=== PATIENT | female | born 1980 | race Caucasian/White ===

== ENCOUNTER → 2017-02-18 | Outpatient (CLI) | payer MEDICARE, OTHER ==
[2017-02-18 11:23] LABS: Basophils % (A) 1 %; CHCM 34.9; Eosinophils # (A) 0.2 k/uL (0-0.7); Eosinophils % (A) 3 %; HCT 43.2 % (34.0-46.0); HDW 3.04; HGB 14.7 gm/dL (11.4-16.0); Luc # (Auto) 0.12; Luc % (Auto) 2; Lymphocytes # (A) 2.1 k/uL (1.0-4.8); Lymphocytes % (A) 34 %; MCH 33.3 pg (25.0-35.0); Mean Platelet Volume 7.7; Monocytes # (A) 0.3 k/uL (0-1.0); Monocytes % (A) 4 %; Neutrophils # (A) 3.5 k/uL (1.3-7.7); Neutrophils % (A) 56 %; RBC 4.41 m/uL (3.80-5.40); RDW 14.4 % (11.5-15.5); WBC 6.2 k/uL (3.8-10.6)
[2017-02-18 11:28] LABS: ALT 87 U/L (9-52); AST 138 U/L (14-36); Alkaline Phosphatase 130 U/L (38-126); Anion Gap 9 mmol/L; Blood Urea Nitrogen 7 mg/dL (7-17); Calcium 9.5 mg/dL (8.4-10.2); Carbon Dioxide 29 mmol/L (22-30); Chloride 104 mmol/L (98-107); Glucose 90 mg/dL (74-99); Non-African American GFR(MDRD) >60 (>60 ml/min/1.73 sqM); Potassium 3.2 mmol/L (3.5-5.1); Sodium 142 mmol/L (137-145); Total Protein 6.9 g/dL (6.3-8.2)
[2017-02-18 12:16] LABS: Vitamin B12 813 pg/mL (239-931)
[2017-02-18 13:16] LABS: Erythrocyte Sedimentation Rate 5 mm/hr (0-20)
[2017-02-18 15:47] LABS: Treponemal Ab Non-Reactive (Non-Reactive)
[2017-02-19 20:17] LABS: ANA w/Reflex to Titer NEGATIVE (NEGATIVE)
== END | disposition home or self-care (01) ==
LOC: LABWHC1 10:59
PROVIDERS: ATTEND Otolaryngology
DX: K14.0 Glossitis (principal)
CPT/HCPCS: 36415; 80053; 82607; 84443; 85025; 85652; 86038; 86780

== ENCOUNTER 2017-05-05 13:46 | Emergency (ER) | payer MEDICARE, OTHER ==
[2017-05-05 14:25] VITALS: TEMP 97.8
--- NOTE | 2017-05-05 15:16 | ED ---
Extremity Problem HPI - General Chief complaint: Extremity Problem,Nontraumatic Stated complaint: left leg swelling/numbness-sent by Time Seen by Provider: 05/05/17 14:57 Source: patient, RN notes reviewed Mode of arrival: wheelchair Limitations: no limitations - History of Present Illness Initial comments: 37 yo female presents to the ER with cc of left lower extremity numbness and tingling. Patient states this is been to the anterior left leg. Patient states that she's noticed swelling over the last few weeks and she started to notice numbness and tingling started around the ankle and has seemed to spread out throughout the left leg. Patient denies any falls traumas or injuries. Patient denies any low back pain or weakness with this. Patient states she was concerned due to her symptoms so she thought that she should be evaluated. Patient denies any history of anything like this in the past. Patient states she is not currently having any other symptoms. Patient denies any recent fever , chills, shortness of breath, chest pain, back pain, abdominal pain, nausea vomiting, numbness or tingling, dysuria or hematuria, constipation or diarrhea, headaches or visual changes, or any other current symptoms. - Related Data Home Medications Medication Instructions Recorded Confirmed Aspirin 81 mg PO DAILY 06/11/15 06/11/15 Ascorbic Acid [Vitamin C] 500 mg PO DAILY 05/05/17 05/05/17 Bethanechol Chloride 5 mg PO DAILY PRN 05/05/17 05/05/17 Eszopiclone [Lunesta] 3 mg PO HS 05/05/17 05/05/17 Fludrocortisone [Florinef] 0.1 mg PO BID@0800,1400 05/05/17 05/05/17 Levothyroxine Sodium [Synthroid] 50 mcg PO DAILY 05/05/17 05/05/17 Multivitamins, Thera [Multivitamin 1 tab PO DAILY 05/05/17 05/05/17 (formulary)] Pregabalin [Lyrica] 25 mg PO BID@0800,1400 05/05/17 05/05/17 Propranolol HCl 80 mg PO BID 05/05/17 05/05/17 Topiramate [Topamax] 50 mg PO HS 05/05/17 05/05/17 buPROPion [Wellbutrin] 75 mg PO BID@0800,1400 05/05/17 05/05/17 Allergies Allergy/AdvReac Type Severity Reaction Status Date / Time adhesive tape Allergy Unknown Verified 05/05/17 15:20 metoclopramide HCl Allergy Unknown Verified 05/05/17 15:20 [From Reglan] prochlorperazine edisylate Allergy Unknown Verified 05/05/17 15:20 [From Compazine] prochlorperazine maleate Allergy Unknown Verified 05/05/17 15:20 [From Compazine] promethazine HCl Allergy Unknown Verified 05/05/17 15:20 [From Phenergan] sulfamethoxazole Allergy Unknown Verified 05/05/17 15:20 [From Bactrim] trimethoprim [From Bactrim] Allergy Unknown Verified 05/05/17 15:20 sumatriptan [From Imitrex] AdvReac Unknown Verified 05/05/17 15:20 sumatriptan succinate AdvReac Unknown Verified 05/05/17 15:20 [From Imitrex] Review of Systems ROS Statement: Those systems with pertinent positive or pertinent negative responses have been documented in the HPI. ROS Other: All systems not noted in ROS Statement are negative. Past Medical History Past Medical History: CVA/TIA, Thyroid Disorder Additional Past Medical History / Comment(s): migraines, pots, endometriosis, interstitial cystitis History of Any Multi-Drug Resistant Organisms: None Reported Past Surgical History: Appendectomy, Back Surgery, Bariatric Surgery, Cholecystectomy, Hysterectomy, Tonsillectomy Additional Past Surgical History / Comment(s): right oopherectomy Past Psychological History: Anxiety Smoking Status: Never smoker Past Alcohol Use History: None Reported Past Drug Use History: None Reported General Exam - General Exam Comments Initial Comments: General: The patient is awake and alert, in no distress, and does not appear acutely ill. Neck: The neck is supple, there is no tenderness. Cardiovascular: There is a regular rate and rhythm. No murmur, rub or gallop is appreciated. Respiratory: Lungs are clear to auscultation, respirations are non-labored, breath sounds are equal. No wheezes, stridor, rales, or rhonchi. Musculoskeletal: Patient does have a slight sensation she states it is different Zihlman compared to the left side being more slowly spreading up to about the top of the knee. Patient does appear to have some swelling to left lower extremity compared to the right with 2+ pulses throughout. There is no redness or erythema noted. 5/5 muscle strength testing. Neurological: CN II-XII intact, There are no obvious motor or sensory deficits. Coordination appears grossly intact. Speech is normal. Skin: Skin is warm and dry and no rashes or lesions are noted. Psychiatric: Normal mood and affect. Limitations: no limitations Course Vital Signs 05/05/17 14:21 Temperature 97.8 F Pulse Rate 70 Respiratory 20 Rate Blood Pressure 114/72 O2 Sat by Pulse 96 Oximetry Medical Decision Making - Medical Decision Making 37-year-old female presents emergency Department chief complaint of left lower extremity swelling with some numbness. At this time patient's ultrasound x- rays reviewed and negative. This discussed close follow up neurology as well as SHE IS GIVEN THEIR INFORMATION. WE DID DISCUSS RETURN PARAMETERS ALL HER QUESTIONS. SHE STATED THAT SHE UNDERSTOOD AND SHE WAS GIVEN PLAN. SHE WILL BE DISCHARGED HOME. - Radiology Data Radiology results: report reviewed, image reviewed Disposition Clinical Impression: Paresthesia and pain of left extremity Disposition: HOME SELF-CARE Condition: Stable Instructions: Paresthesia (ED) Additional Instructions: Please use medication as discussed. Please follow up with family doctor if symptoms have not improved over the next two days. Please return to the emergency room if your symptoms increase or worsen or for any other concerns. Referrals: Gema Rondon MD [Primary Care Provider] - 1-2 days Dori Dennis MD [STAFF PHYSICIAN] - 1-2 days Ranjan Sanderson MD [STAFF PHYSICIAN] - 1-2 days Time of Disposition: 16:26
--- NOTE | 2017-05-05 16:01 | XR ---
EXAMINATION TYPE: XR tibia fibula LT DATE OF EXAM: 05/05/2017 CLINICAL HISTORY: pain TECHNIQUE: AP and lateral images of the left tibia and fibula are obtained. COMPARISON: None. FINDINGS: There is no acute fracture/dislocation evident. The joint spaces appear within normal sinha its. The overlying soft tissue appears unremarkable. Distal femoral bone island. IMPRESSION: There is no acute fracture or dislocation seen. ICD 10 NO FRACTURE, INITIAL EVALUATION
--- NOTE | 2017-05-05 16:12 | US ---
EXAMINATION TYPE: US venous doppler duplex LE LT DATE OF EXAM: 05/05/2017 4:06 PM COMPARISON: NONE CLINICAL HISTORY: Pain. Numbness SIDE PERFORMED: Left TECHNIQUE: The lower extremity deep venous system is examined utilizing real time linear array sonog puneet with graded compression, doppler sonography and color-flow sonography. VESSELS IMAGED: External Iliac Vein (EIV) Common Femoral Vein Deep Femoral Vein Greater Saphenous Vein * Femoral Vein Popliteal Vein Small Saphenous Vein * Proximal Calf Veins (* superficial vessels) Grayscale, color doppler, spectral doppler imaging performed of the deep veins of the lower extremiti es. There is normal flow, compressibility, vascular waveforms Left Leg. Left Leg: Negative for DVT IMPRESSION: No evidence for DVT left lower extremity.
[2017-05-05 16:45] VITALS: BP 129/82; PULSE 56; RESP 16
== END 2017-05-05 16:53 | disposition home or self-care (01) ==
LOC: EC 13:46
DX: R20.2 Paresthesia of skin (principal); M79.662 Pain in left lower leg; E07.9 Disorder of thyroid, unspecified; F41.9 Anxiety disorder, unspecified; Z86.73 Personal history of transient ischemic attack (TIA), and cerebral infarction without residual deficits; Z87.42 Personal history of other diseases of the female genital tract; Z88.2 Allergy status to sulfonamides; Z88.8 Allergy status to other drugs, medicaments and biological substances; Z91.048 Other nonmedicinal substance allergy status; Z79.82 Long term (current) use of aspirin; Z79.899 Other long term (current) drug therapy
CPT/HCPCS: 99284

== ENCOUNTER 2017-08-25 08:17 | Emergency (ER) | payer MEDICARE ==
--- NOTE | 2017-08-25 08:59 | ED ---
General Adult HPI - General Chief complaint: Extremity Injury, Upper Stated complaint: hand and knee injury Time Seen by Provider: 08/25/17 08:26 Source: patient, RN notes reviewed, old records reviewed Mode of arrival: ambulatory Limitations: no limitations - History of Present Illness Initial comments: 37-year-old female presents emergency Department chief complaint of left hand pain after she fell while playing volleyball yesterday. Patient reports that she has pain whenever she has range of motion of her hand. She does have some swelling over the fourth and fifth metacarpals. Patient states that she is prominently [id number]. She is ambidextrous. Chest reports that one week ago she had some right knee pain after playing basketball. She reports that she twisted her leg. Patient reports she has not able to take NSAIDs due to poor stomach. She states that she went to see her primary care provider started her on Medrol Dosepak. She reports that she has no improvement after the Medrol Dosepak. Patient states that she has been able to bear weight over her leg. Denies any numbness or tingling down her legs. Denies any other peripheral paresthesias.Patient denies any recent fever, chills, shortness of breath, chest pain, back pain, abdominal pain, nausea vomiting, numbness or tingling, dysuria or hematuria, constipation or diarrhea, headaches or visual changes, or any other current symptoms - Related Data Home Medications Medication Instructions Recorded Confirmed Aspirin 81 mg PO HS 06/11/15 08/25/17 Bethanechol Chloride 5 mg PO DAILY PRN 05/05/17 08/25/17 Eszopiclone [Lunesta] 3 mg PO HS 05/05/17 08/25/17 Fludrocortisone [Florinef] 0.1 mg PO BID@0800,1400 05/05/17 08/25/17 Levothyroxine Sodium [Synthroid] 50 mcg PO DAILY 05/05/17 08/25/17 Pregabalin [Lyrica] 25 mg PO HS 05/05/17 08/25/17 Propranolol HCl 80 mg PO QID 05/05/17 08/25/17 buPROPion [Wellbutrin] 75 mg PO BID@0800,1400 05/05/17 08/25/17 Topiramate [Topamax] 100 mg PO HS 08/25/17 08/25/17 Previous Rx's Medication Instructions Recorded traMADol HCl [Ultram] 50 mg PO Q6H PRN #15 tab 08/25/17 Allergies Allergy/AdvReac Type Severity Reaction Status Date / Time adhesive tape Allergy Unknown Verified 08/25/17 08:35 metoclopramide HCl Allergy Unknown Verified 08/25/17 08:35 [From Reglan] prochlorperazine edisylate Allergy Unknown Verified 08/25/17 08:35 [From Compazine] prochlorperazine maleate Allergy Unknown Verified 08/25/17 08:35 [From Compazine] promethazine HCl Allergy Unknown Verified 08/25/17 08:35 [From Phenergan] sulfamethoxazole Allergy Unknown Verified 08/25/17 08:35 [From Bactrim] trimethoprim [From Bactrim] Allergy Unknown Verified 08/25/17 08:35 NSAIDS (Non-Steroidal AdvReac PAIN Verified 08/25/17 08:35 Anti-Inflamma sumatriptan [From Imitrex] AdvReac Unknown Verified 08/25/17 08:35 sumatriptan succinate AdvReac Unknown Verified 08/25/17 08:35 [From Imitrex] Review of Systems ROS Statement: Those systems with pertinent positive or pertinent negative responses have been documented in the HPI. ROS Other: All systems not noted in ROS Statement are negative. Past Medical History Past Medical History: CVA/TIA, Thyroid Disorder Additional Past Medical History / Comment(s): migraines, pots, endometriosis, interstitial cystitis History of Any Multi-Drug Resistant Organisms: None Reported Past Surgical History: Appendectomy, Back Surgery, Bariatric Surgery, Cholecystectomy, Hysterectomy, Tonsillectomy Additional Past Surgical History / Comment(s): right oopherectomy Past Psychological History: Anxiety Smoking Status: Never smoker Past Alcohol Use History: None Reported Past Drug Use History: None Reported General Exam - General Exam Comments Initial Comments: 37-year-old female. No acute distress. Limitations: no limitations General appearance: alert, in no apparent distress Head exam: Present: atraumatic, normocephalic, normal inspection Eye exam: Present: normal appearance, PERRL, EOMI. Absent: scleral icterus, conjunctival injection, periorbital swelling ENT exam: Present: normal exam, mucous membranes moist Neck exam: Present: normal inspection. Absent: tenderness, meningismus, lymphadenopathy Respiratory exam: Present: normal lung sounds bilaterally. Absent: respiratory distress, wheezes, rales, rhonchi, stridor Cardiovascular Exam: Present: regular rate, normal rhythm, normal heart sounds. Absent: systolic murmur, diastolic murmur, rubs, gallop, clicks Left Elbow exam: Present: normal inspection, full ROM Forearm Wrist exam: Present: normal inspection, full ROM Hand Wrist exam: Present: tenderness, swelling. Absent: normal inspection ( Patient has ecchymosis, tenderness and swelling over the fourth and fifth metacarpals.), full ROM Neuro motor exam: Present: wrist extension intact, thumb opposition intact, thumb IP flexion intact, thumb adduction intact, fingers 2-5 abduction intact Vascular: Present: normal capillary refill Right Upper Leg exam: Present: normal inspection, full ROM Knee exam: Present: normal inspection, full ROM (Patient has full range of motion of the knee. She reports some tenderness over the lateral meniscus area. ), tenderness (Her meniscus area), swelling (Minor swelling noted over the lateral aspect of the knee.), pain/laxity with valgus. Absent: abrasion, laceration, ecchymosis, deformity, crepitus, dislocation, erythema, effusion, pain w/ pronation/supination, posterior draw sign, pain/laxity with varus, full knee extension Back exam: Present: normal inspection Neurological exam: Present: alert, oriented X3, CN II-XII intact Psychiatric exam: Present: normal affect, normal mood Skin exam: Present: warm, dry, intact, normal color. Absent: rash Course Vital Signs 08/25/17 08:20 Temperature 98.0 F Pulse Rate 70 Respiratory 20 Rate Blood Pressure 134/89 O2 Sat by Pulse 100 Oximetry Procedures - Orthopedic Splinting/Casting Injury #1 Side: left Upper Extremity Injury Location: hand Upper Extremity Immobilizer: Shay wrap Injury #2 Side: right Lower Extremity Injury Location: knee Lower Extremity Immobilizer: Shay wrap Medical Decision Making - Medical Decision Making 37-year-old female since emergency room chief complaint of right knee and left hand pain. Patient reports that yesterday she fell while playing volleyball and injured left hand. Approximately one week ago she injured her right knee. At this time patient's x-ray showed no acute abnormality's. Patient was given an Shay wrap over her hand and knee. Instructed take anti-inflammatory medications. Discussed following up with primary care provider. Patient agrees to treatment plan will comply. Return parameters were discussed. - Radiology Data Radiology results: report reviewed Normal 3 view of the left hand. Knee x-ray shows no acute abnormalities. Disposition Clinical Impression: Right knee pain, Contusion of left hand Disposition: HOME SELF-CARE Condition: Good Instructions: Knee Sprain (ED), Hand Sprain (ED), Meniscus Tear (ED) Additional Instructions: Rest, ice, elevate extremities. Follow-up with orthopedic physician. Return to the emergency department if any alarming signs or symptoms occur. Prescriptions: traMADol HCl [Ultram] 50 mg PO Q6H PRN #15 tab PRN Reason: Pain Referrals: Gema Rondon MD [Primary Care Provider] - 1-2 days Christos Goodson MD [STAFF PHYSICIAN] - 1-2 days Time of Disposition: 10:05
--- NOTE | 2017-08-25 09:16 | XR ---
EXAMINATION TYPE: XR knee complete RT DATE OF EXAM: 08/25/2017 COMPARISON: NONE HISTORY: Pain x1 week TECHNIQUE: Three-view right knee FINDINGS: No joint effusion is evident. Joint spaces are preserved. No acute fractures are identified . IMPRESSION: 1. No acute osseous abnormality right knee.
--- NOTE | 2017-08-25 09:17 | XR ---
EXAMINATION TYPE: XR hand complete LT DATE OF EXAM: 08/25/2017 COMPARISON: NONE HISTORY: Pain TECHNIQUE: Three-view left hand FINDINGS: Left hand is examined in 3 projections No acute fractures are evident. Soft tissues appear normal. Joint spaces are preserved. Follow-up study can be performed 7-10 days from acute trauma for continued pain. IMPRESSION: 1. Normal three-view left hand.
[2017-08-25 10:31] VITALS: BP 109/75; PULSE 79; RESP 19; TEMP 98.6
== END 2017-08-25 10:32 | disposition home or self-care (01) ==
LOC: EC 08:17
DX: S60.222A Contusion of left hand, initial encounter (principal); M25.561 Pain in right knee; E07.9 Disorder of thyroid, unspecified; Z91.048 Other nonmedicinal substance allergy status; Z88.6 Allergy status to analgesic agent; Z88.8 Allergy status to other drugs, medicaments and biological substances; Z88.2 Allergy status to sulfonamides; Z79.82 Long term (current) use of aspirin; Z79.899 Other long term (current) drug therapy; W19.XXXA Unspecified fall, initial encounter; Y93.68 Activity, volleyball (beach) (court)
CPT/HCPCS: 99284

== ENCOUNTER 2018-01-18 19:27 | Emergency (ER) | payer MEDICARE ==
[2018-01-18] MEDS ORDERED: ONDANSETRON 4 MG/2 ML VIAL IVP STA (19:53)
[2018-01-18] MEDS ORDERED: MORPHINE SULFATE/PF 10MG/10ML VL IVP STA ×2 (19:53→23:00)
[2018-01-18] MEDS ORDERED: SODIUM CHLORIDE 0.9% 1,000 ML IV STA (19:53)
--- NOTE | 2018-01-18 20:04 | ED ---
Abdominal Pain HPI - General Chief Complaint: Abdominal Pain Stated Complaint: RLQ pain Time Seen by Provider: 01/18/18 19:41 Source: patient, RN notes reviewed Mode of arrival: ambulatory Limitations: no limitations - History of Present Illness Initial Comments: This is a 37-year-old female who presents to the emergency department with chief complaint of right lower quadrant abdominal pain. Patient states that she developed a constant cramp-like pain at noon today. She says it has progressively worsened throughout the day. Patient admits to associated nausea but denies vomiting, constipation or diarrhea. She states that her last bowel movement was this morning. Denies fevers or chills. Patient reports an extensive abdominal surgical history. Patient states that she has had her gallbladder, appendix, uterus and right ovary removed. She has also had a lap band and subsequent complications that led to her losing her stomach. She states that her stomach is made out of her duodenum. Denies alcohol use. Denies chest pain, shortness of breath, dysuria or hematuria, numbness or tingling, headache or vision changes. - Related Data Home Medications Medication Instructions Recorded Confirmed Aspirin 81 mg PO HS 06/11/15 01/18/18 Bethanechol Chloride 5 mg PO DAILY PRN 05/05/17 01/18/18 Fludrocortisone [Florinef] 0.1 mg PO BID@0800,1400 05/05/17 01/18/18 Pregabalin [Lyrica] 25 mg PO HS 05/05/17 01/18/18 Propranolol HCl 80 mg PO QID 05/05/17 01/18/18 buPROPion [Wellbutrin] 75 mg PO BID@0800,1400 05/05/17 01/18/18 Topiramate [Topamax] 100 mg PO HS 08/25/17 01/18/18 Ascorbic Acid [Vitamin C] 1,000 mg PO DAILY 01/18/18 01/18/18 Cyanocobalamin [Vitamin B-12] 500 mcg PO DAILY 01/18/18 01/18/18 Levothyroxine Sodium [Synthroid] 50 mcg PO DAILY 01/18/18 01/18/18 Melatonin 6 mg PO HS 01/18/18 01/18/18 Riboflavin [Vitamin B-2] 50 mg PO DAILY 01/18/18 01/18/18 Vitamin C/Biotin [Hair, Skin and 1 tab PO DAILY 01/18/18 01/18/18 Nails] oxyCODONE-APAP 7.5-325MG [Percocet 1 tab PO TID PRN 01/18/18 01/18/18 7.5-325 mg] Previous Rx's Medication Instructions Recorded Cephalexin [Keflex] 500 mg PO Q12HR #14 cap 01/18/18 Allergies Allergy/AdvReac Type Severity Reaction Status Date / Time adhesive tape Allergy Unknown Verified 01/18/18 20:07 metoclopramide HCl Allergy Unknown Verified 01/18/18 20:07 [From Reglan] prochlorperazine edisylate Allergy Unknown Verified 01/18/18 20:07 [From Compazine] prochlorperazine maleate Allergy Unknown Verified 01/18/18 20:07 [From Compazine] promethazine HCl Allergy Unknown Verified 01/18/18 20:07 [From Phenergan] sulfamethoxazole Allergy Unknown Verified 01/18/18 20:07 [From Bactrim] trimethoprim [From Bactrim] Allergy Unknown Verified 01/18/18 20:07 NSAIDS (Non-Steroidal AdvReac PAIN Verified 01/18/18 20:07 Anti-Inflamma sumatriptan [From Imitrex] AdvReac Unknown Verified 01/18/18 20:07 sumatriptan succinate AdvReac Unknown Verified 01/18/18 20:07 [From Imitrex] Review of Systems ROS Statement: Those systems with pertinent positive or pertinent negative responses have been documented in the HPI. ROS Other: All systems not noted in ROS Statement are negative. Past Medical History Past Medical History: CVA/TIA, Thyroid Disorder Additional Past Medical History / Comment(s): migraines, pots, endometriosis, interstitial cystitis,kidney stones History of Any Multi-Drug Resistant Organisms: None Reported Past Surgical History: Appendectomy, Back Surgery, Bariatric Surgery, Cholecystectomy, Hysterectomy, Tonsillectomy Additional Past Surgical History / Comment(s): right oopherectomy Past Psychological History: Anxiety Smoking Status: Never smoker Past Alcohol Use History: None Reported Past Drug Use History: None Reported General Exam - General Exam Comments Initial Comments: General: Awake and alert, well-developed; in no apparent distress. HEENT: Head atraumatic, normocephalic. Pupils are equal, round and reactive to light. Extraocular movements intact. Oropharynx moist without erythema or exudate. Neck: Supple. Normal ROM. Cardiovascular: Regular rate and rhythm. No murmurs, rubs or gallops. Chest symmetrical. Respiratory: Lungs clear to auscultation bilaterally. No wheezes, rales or rhonchi. Normal respiratory effort with no use of accessory muscles. Abdomen: Soft, non-distended. Mild tenderness on palpation of right lower quadrant. No rigidity, rebound or guarding. Normal bowel sounds in all 4 quadrants. Musculoskeletal: Normal ROM, no tenderness bilateral upper and lower extremities. Ambulating normally. Skin: [place], warm and dry without rashes or lesions. Neurological: Alert and oriented x3. CN II-XII grossly intact. Speech is fluent and answers are appropriate. No focal neuro deficits. Psychiatric: Normal mood and affect. No overt signs of depression or anxiety noted. Limitations: no limitations Course Vital Signs 01/18/18 01/18/18 01/18/18 19:35 20:31 21:00 Temperature 99.3 F Pulse Rate 77 83 78 Respiratory 20 14 16 Rate Blood Pressure 118/81 145/100 139/90 O2 Sat by Pulse 98 97 95 Oximetry Medical Decision Making - Medical Decision Making This is a 37-year-old female who presented to the emergency department with chief complaint of right lower quadrant abdominal pain 1 day. CBC was within normal limits. CMP revealed elevated liver enzymes with an AST of 384, ALT 487 , alkaline phosphatase 159. Hepatitis A panel was negative. UA revealed trace protein, large blood, small leukocyte esterase, > 182 red blood cells and 28 white blood cells. KUB revealed no acute abnormalities. A CT of abdomen and pelvis with IV contrast was obtained. It revealed a new left ovarian cyst and new hiatal hernia but no obvious cause for right lower quadrant pain. This case was discussed with attending physician, Dr. Salcedo who also evaluated the patient. Patient was recommended admission for consult with gastroenterology. Patient declined and she wishes to follow-up outpatient. Patient will be started on antibiotics for possible hemorrhagic cystitis. It was recommended that patient follow up with gastroenterology in regards to elevation of her liver enzymes. She is in no acute distress and will be discharged home. She is in agreement with plan and voices understanding. All questions were answered. - Lab Data Result diagrams: 01/18/18 20:04 01/18/18 20:04 Lab Results 01/18/18 01/18/18 01/18/18 Range/Units 20:04 20:04 20:04 WBC 5.7 (3.8-10.6) k/uL RBC 4.03 (3.80-5.40) m/uL Hgb 13.4 (11.4-16.0) gm/dL Hct 40.0 (34.0-46.0) % MCV 99.2 (80.0-100.0) fL MCH 33.2 (25.0-35.0) pg MCHC 33.4 (31.0-37.0) g/dL RDW 12.2 (11.5-15.5) % Plt Count 168 (150-450) k/uL Neutrophils % 63 % Lymphocytes % 26 % Monocytes % 3 % Eosinophils % 7 % Basophils % 1 % Neutrophils # 3.6 (1.3-7.7) k/uL Lymphocytes # 1.5 (1.0-4.8) k/uL Monocytes # 0.2 (0-1.0) k/uL Eosinophils # 0.4 (0-0.7) k/uL Basophils # 0.0 (0-0.2) k/uL PT (9.0-12.0) sec INR (<1.2) APTT (22.0-30.0) sec Sodium 138 (137-145) mmol/L Potassium 4.0 (3.5-5.1) mmol/L Chloride 108 H (98-107) mmol/L Carbon Dioxide 21 L (22-30) mmol/L Anion Gap 9 mmol/L BUN 15 (7-17) mg/dL Creatinine 0.90 (0.52-1.04) mg/dL Est GFR (CKD-EPI)AfAm >90 (>60 ml/min/1.73 sqM) Est GFR (CKD-EPI)NonAf 81 (>60 ml/min/1.73 sqM) Glucose 79 (74-99) mg/dL Calcium 8.9 (8.4-10.2) mg/dL Total Bilirubin 0.9 (0.2-1.3) mg/dL AST 384 H (14-36) U/L ALT 487 H (9-52) U/L Alkaline Phosphatase 159 H (38-126) U/L Total Protein 6.4 (6.3-8.2) g/dL Albumin 3.6 (3.5-5.0) g/dL Amylase 58 (30-110) U/L Lipase 104 (23-300) U/L Urine Color Urine Appearance (Clear) Urine pH (5.0-8.0) Ur Specific [place] (1.001-1.035) Urine Protein (Negative) Urine Glucose (UA) (Negative) Urine Ketones (Negative) Urine Blood (Negative) Urine Nitrite (Negative) Urine Bilirubin (Negative) Urine Urobilinogen (<2.0) mg/dL Ur Leukocyte Esterase (Negative) Urine RBC (0-5) /hpf Urine WBC (0-5) /hpf Ur Squamous Epith Cells (0-4) /hpf Urine Mucus (None) /hpf Urine HCG, Qual Not Detected (Not Detectd) Acetaminophen ug/mL Hepatitis A IgM Ab 01/18/18 01/18/18 01/18/18 Range/Units 20:04 20:04 20:04 WBC (3.8-10.6) k/uL RBC (3.80-5.40) m/uL Hgb (11.4-16.0) gm/dL Hct (34.0-46.0) % MCV (80.0-100.0) fL MCH (25.0-35.0) pg MCHC (31.0-37.0) g/dL RDW (11.5-15.5) % Plt Count (150-450) k/uL Neutrophils % % Lymphocytes % % Monocytes % % Eosinophils % % Basophils % % Neutrophils # (1.3-7.7) k/uL Lymphocytes # (1.0-4.8) k/uL Monocytes # (0-1.0) k/uL Eosinophils # (0-0.7) k/uL Basophils # (0-0.2) k/uL PT 10.0 (9.0-12.0) sec INR 1.0 (<1.2) APTT 22.0 (22.0-30.0) sec Sodium (137-145) mmol/L Potassium (3.5-5.1) mmol/L Chloride (98-107) mmol/L Carbon Dioxide (22-30) mmol/L Anion Gap mmol/L BUN (7-17) mg/dL Creatinine (0.52-1.04) mg/dL Est GFR (CKD-EPI)AfAm (>60 ml/min/1.73 sqM) Est GFR (CKD-EPI)NonAf (>60 ml/min/1.73 sqM) Glucose (74-99) mg/dL Calcium (8.4-10.2) mg/dL Total Bilirubin (0.2-1.3) mg/dL AST (14-36) U/L ALT (9-52) U/L Alkaline Phosphatase (38-126) U/L Total Protein (6.3-8.2) g/dL Albumin (3.5-5.0) g/dL Amylase (30-110) U/L Lipase (23-300) U/L Urine Color Yellow Urine Appearance Cloudy H (Clear) Urine pH 5.5 (5.0-8.0) Ur Specific [place] 1.010 (1.001-1.035) Urine Protein Trace H (Negative) Urine Glucose (UA) Negative (Negative) Urine Ketones Negative (Negative) Urine Blood Large H (Negative) Urine Nitrite Negative (Negative) Urine Bilirubin Negative (Negative) Urine Urobilinogen <2.0 (<2.0) mg/dL Ur Leukocyte Esterase Small H (Negative) Urine RBC >182 H (0-5) /hpf Urine WBC 28 H (0-5) /hpf Ur Squamous Epith Cells 2 (0-4) /hpf Urine Mucus Occasional H (None) /hpf Urine HCG, Qual (Not Detectd) Acetaminophen 10.4 ug/mL Hepatitis A IgM Ab 01/18/18 Range/Units 21:00 WBC (3.8-10.6) k/uL RBC (3.80-5.40) m/uL Hgb (11.4-16.0) gm/dL Hct (34.0-46.0) % MCV (80.0-100.0) fL MCH (25.0-35.0) pg MCHC (31.0-37.0) g/dL RDW (11.5-15.5) % Plt Count (150-450) k/uL Neutrophils % % Lymphocytes % % Monocytes % % Eosinophils % % Basophils % % Neutrophils # (1.3-7.7) k/uL Lymphocytes # (1.0-4.8) k/uL Monocytes # (0-1.0) k/uL Eosinophils # (0-0.7) k/uL Basophils # (0-0.2) k/uL PT (9.0-12.0) sec INR (<1.2) APTT (22.0-30.0) sec Sodium (137-145) mmol/L Potassium (3.5-5.1) mmol/L Chloride (98-107) mmol/L Carbon Dioxide (22-30) mmol/L Anion Gap mmol/L BUN (7-17) mg/dL Creatinine (0.52-1.04) mg/dL Est GFR (CKD-EPI)AfAm (>60 ml/min/1.73 sqM) Est GFR (CKD-EPI)NonAf (>60 ml/min/1.73 sqM) Glucose (74-99) mg/dL Calcium (8.4-10.2) mg/dL Total Bilirubin (0.2-1.3) mg/dL AST (14-36) U/L ALT (9-52) U/L Alkaline Phosphatase (38-126) U/L Total Protein (6.3-8.2) g/dL Albumin (3.5-5.0) g/dL Amylase (30-110) U/L Lipase (23-300) U/L Urine Color Urine Appearance (Clear) Urine pH (5.0-8.0) Ur Specific [place] (1.001-1.035) Urine Protein (Negative) Urine Glucose (UA) (Negative) Urine Ketones (Negative) Urine Blood (Negative) Urine Nitrite (Negative) Urine Bilirubin (Negative) Urine Urobilinogen (<2.0) mg/dL Ur Leukocyte Esterase (Negative) Urine RBC (0-5) /hpf Urine WBC (0-5) /hpf Ur Squamous Epith Cells (0-4) /hpf Urine Mucus (None) /hpf Urine HCG, Qual (Not Detectd) Acetaminophen ug/mL Hepatitis A IgM Ab NEGATIVE - Radiology Data Radiology results: report reviewed X-ray KUB impression: 1. Nonobstructive bowel gas pattern. 2. Postsurgical changes throughout the abdomen. 3. Mild levoscoliosis of the lumbar spine. CT abdomen and pelvis with contrast impression: Left ovarian cyst is new compared to old exam. Hysterectomy noted. There has been revision of the bariatric surgery compared to old exam. No free air. I do not see a cause for right lower quadrant pain. There is new hiatal hernia compared to old exam. Disposition Clinical Impression: Hematuria, Elevated LFTs Disposition: HOME SELF-CARE Condition: Good Instructions: Hematuria (ED) Additional Instructions: Please take medications as prescribed. Please follow up with Dr. Acosta, gastroenterology within 1-2 days. Please follow up with primary care provider within 1-2 days. Return to emergency department if symptoms should worsen or any concerns arise. Prescriptions: Cephalexin [Keflex] 500 mg PO Q12HR #14 cap Referrals: Gema Rondon MD [Primary Care Provider] - 1-2 days Loc Acosta MD [STAFF PHYSICIAN] - 1-2 days Time of Disposition: 23:34
[2018-01-18 20:14] LABS: Basophils % (A) 1 %; Eosinophils # (A) 0.4 k/uL (0-0.7); Eosinophils % (A) 7 %; HGB 13.4 gm/dL (11.4-16.0); Lymphocytes # (A) 1.5 k/uL (1.0-4.8); Lymphocytes % (A) 26 %; MCH 33.2 pg (25.0-35.0); MCHC 33.4 g/dL (31.0-37.0); MCV 99.2 fL (80.0-100.0); Mean Platelet Volume 8.3; Monocytes # (A) 0.2 k/uL (0-1.0); Monocytes % (A) 3 %; Neutrophils # (A) 3.6 k/uL (1.3-7.7); Neutrophils % (A) 63 %; Platelet Count 168 k/uL (150-450); RBC 4.03 m/uL (3.80-5.40); RDW 12.2 % (11.5-15.5); WBC 5.7 k/uL (3.8-10.6)
[2018-01-18 20:23] LABS: Appearance,Urine Cloudy (Clear); Bilirubin,Urine Negative (Negative); Blood,Urine Large (Negative); Color,Urine Yellow; Glucose,Urine (UA) Negative (Negative); Ketones,Urine Negative (Negative); Leukocyte Esterase,Urine Small (Negative); Mucus,Urine Occasional /hpf; Nitrite,Urine Negative (Negative); PH, Urine 5.5 (5.0-8.0); Protein,Urine Trace (Negative); RBC,Urine >182 /hpf (0-5); Squamous Epithelial Cell,Urine 2 /hpf (0-4); Urobilinogen,Urine <2.0 mg/dL (<2.0); WBC,Urine 28 /hpf (0-5)
[2018-01-18 20:24] LABS: ALT 487 U/L (9-52); AST 384 U/L (14-36); Albumin 3.6 g/dL (3.5-5.0); Alkaline Phosphatase 159 U/L (38-126); Amylase 58 U/L (30-110); Anion Gap 9 mmol/L; Blood Urea Nitrogen 15 mg/dL (7-17); Calcium 8.9 mg/dL (8.4-10.2); Carbon Dioxide 21 mmol/L (22-30); Chloride 108 mmol/L (98-107); Glucose 79 mg/dL (74-99); Lipase 104 U/L (23-300); Sodium 138 mmol/L (137-145); Total Bilirubin 0.9 mg/dL (0.2-1.3); Total Protein 6.4 g/dL (6.3-8.2)
[2018-01-18] MEDS ORDERED: diphenhydrAMINE 50 MG/ML 1 ML VIAL IVP STA ×2 (20:34→23:10)
--- NOTE | 2018-01-18 20:38 | XR ---
EXAMINATION TYPE: XR KUB DATE OF EXAM: 01/18/2018 8:26 PM CLINICAL HISTORY: Right-sided abdominal pain. TECHNIQUE: Single upright image of the abdomen is obtained. COMPARISON: None. FINDINGS: Cholecystectomy clips are noted within the right upper quadrant with right mid abdominal fuentes rgical clip and postsurgical changes of the left upper quadrant and a para midline location. There is been removal of the gastric lap band. Surgical sutures are also noted within the left mid abdomen. T here is a mild levoscoliosis of the lumbar spine. Scattered gas is seen in non-distended small bowel loops. Gas and fecal material is seen in non-distended colon. No pneumoperitoneum is seen. The lung b ases are clear and the osseous structures are intact. IMPRESSION: 1. Nonobstructive bowel gas pattern. 2. Postsurgical changes throughout the abdomen. 3. Mild levoscoliosis of the lumbar spine.
[2018-01-18 21:52] VITALS: PULSE 78
[2018-01-18 22:01] LABS: Hepatitis A AB IgM Index 0.01; Hepatitis A Antibody IgM NEGATIVE
[2018-01-18] MEDS ORDERED: RX INFO: IV CONTRAST WAS GIVEN 1 EACH MISC MISCELLANE PRN (22:08)
--- NOTE | 2018-01-18 23:10 | CT ---
EXAMINATION TYPE: CT abdomen pelvis w con DATE OF EXAM: 01/18/2018 COMPARISON: 06/09/2012 HISTORY: RLQ pain and hematuria CT DLP: 1402 mGycm Automated exposure control for dose reduction was used. TECHNIQUE: Helical acquisition of images was performed from the lung bases through the pelvis. CONTRAST: Performed without Oral Contrast and with IV Contrast, patient injected with 100 mL of Isovue 300. FINDINGS: There is a hiatal hernia. There are surgical clips at the gastroesophageal junction. There is clips a pparently from bariatric surgery. There are clips from cholecystectomy. Liver shows no focal defect. Bile ducts are not dilated. There is no evidence of a splenic mass. There is no evidence of pancreati c mass. There are surgical clips in the proximal jejunum. The kidneys show satisfactory contrast opacificatio n. There is no hydronephrosis. There is no retroperitoneal adenopathy. There is no adrenal mass. Ther e is no ascites. The bladder distends smoothly. There is a 3 cm cyst on the left ovary. There are mul tiple surgical clips in the pelvis. Lumbar spine is intact. Appendix is not seen. There is no sign of appendicitis. IMPRESSION: LEFT OVARIAN CYST IS NEW COMPARED TO OLD EXAM. HYSTERECTOMY NOTED. THERE IS BEEN REVISION OF THE ASH ATRIC SURGERY COMPARED TO OLD EXAM. NO FREE AIR. I DO NOT SEE A CAUSE FOR RIGHT LOWER QUADRANT PAIN. THERE IS NEW HIATAL HERNIA COMPARED TO OLD EXAM.
[2018-01-18 23:56] VITALS: BP 138/95; RESP 18; TEMP 98
[2018-01-19 01:27] LABS: Hepatitis B Core IgM Non-Reactive (Non-Reactive)
== END 2018-01-18 23:56 | disposition home or self-care (01) ==
LOC: EC 19:27
DX: R31.9 Hematuria, unspecified (principal); R94.5 Abnormal results of liver function studies; R10.31 Right lower quadrant pain; R11.0 Nausea; N83.202 Unspecified ovarian cyst, left side; K44.9 Diaphragmatic hernia without obstruction or gangrene; E07.9 Disorder of thyroid, unspecified; G43.909 Migraine, unspecified, not intractable, without status migrainosus; F41.9 Anxiety disorder, unspecified; Z86.73 Personal history of transient ischemic attack (TIA), and cerebral infarction without residual deficits; Z87.42 Personal history of other diseases of the female genital tract; Z87.442 Personal history of urinary calculi; Z90.49 Acquired absence of other specified parts of digestive tract; Z90.710 Acquired absence of both cervix and uterus; Z90.89 Acquired absence of other organs; Z88.2 Allergy status to sulfonamides; Z88.6 Allergy status to analgesic agent; Z88.8 Allergy status to other drugs, medicaments and biological substances; Z91.048 Other nonmedicinal substance allergy status; Z79.82 Long term (current) use of aspirin; Z79.899 Other long term (current) drug therapy
CPT/HCPCS: 99284; 96374; 96375 ×2; 96376 ×2; 96361; 36415; 80053; 80074; 82150; 83690; 85025; 85610; 85730; 81001; 81025; 83520; 74018; 74177; J1200; J2405; Q9967; J2270

== ENCOUNTER → 2018-12-21 | Outpatient (CLI) | payer MEDICARE ==
--- NOTE | 2018-12-21 09:43 | MM ---
Reason for exam: screening (asymptomatic). Baseline mammogram. History: Patient is nulliparous. Family history of breast cancer in paternal grandmother at age 35. Took hormonal contraceptives for 15 years. Physical Findings: Nurse did not find any significant physical abnormalities on exam. MG 3D Screening Mammo W/Cad Bilateral CC and MLO view(s) were taken. The breast tissue is heterogeneously dense. This may lower the sensitivity of mammography. These results were verbally communicated with the patient and result sheet given to the patient on 12/21/18. ASSESSMENT: Negative, BI-RAD 1 RECOMMENDATION: Routine screening mammogram of both breasts in 1 year.
== END | disposition home or self-care (01) ==
LOC: RADMAMWWP 08:18
PROVIDERS: ATTEND Family Medicine
DX: Z12.31 Encounter for screening mammogram for malignant neoplasm of breast (principal)
CPT/HCPCS: 77063; 77067

== ENCOUNTER → 2018-12-27 | Outpatient (CLI) | payer MEDICARE ==
[2018-12-27 18:37] LABS: Albumin 4.2 g/dL (3.80-4.90); Anion Gap 8.8 mmol/L (4.00-12.00); Calcium 9.8 mg/dL (8.7-10.3); Carbon Dioxide 24.2 mmol/L (21.6-31.8); Globulin 2.1 g/dL (1.6-3.3); Potassium 5.3 mmol/L (3.5-5.5); Total Bilirubin 0.5 mg/dL (0.2-1.2); Total Protein 6.3 g/dL (6.2-8.2)
== END | disposition home or self-care (01) ==
LOC: LABWHC1 10:59
PROVIDERS: ATTEND Nurse Practitioner
DX: Z51.81 Encounter for therapeutic drug level monitoring (principal); Z79.891 Long term (current) use of opiate analgesic
CPT/HCPCS: 36415; 80053

== ENCOUNTER 2021-04-21 11:03 | Emergency (ER) | payer MEDICARE ==
[2021-04-21] MEDS ORDERED: KETOROLAC 15 MG/ML 1 ML VIAL IM STA (12:15)
[2021-04-21] MEDS ORDERED: diazePAM 5 MG TAB PO STA (12:15)
--- NOTE | 2021-04-21 13:05 | XR ---
Lumbar spine HISTORY: Low back pain 3 views of the lumbar spine No comparisons Surgical clips are present in the upper abdomen. Multiple calcifications in the pelvis are likely vas cular. There is loss of disc height at L5-S1 greater than L4-5, L3-4. Sclerosis is present in the pos terior elements. There is multilevel spondylosis. Lumbar vertebral bodies show preserved height and a lignment, bone mineralization. IMPRESSION: Degenerative disc disease and facet arthropathy. Postop changes.
--- NOTE | 2021-04-21 13:19 | ED ---
Back Pain HPI - General Chief Complaint: Back Pain/Injury Stated Complaint: back injury Time Seen by Provider: 04/21/21 11:58 Source: patient Limitations: no limitations - History of Present Illness Initial Comments: Patient is a 41-year-old female presenting to the emergency Department with complaints of low back pain after she bent over to apple picker some laundry. She states happened this morning. States it hurts to fully stand straight up or to bend forward. She denies any numbness and tingling into her extremities, no bowel or bladder incontinence. She denies any other falls or trauma. She does have history of cervical neck surgery but no lumbar. She denies any fevers or chills. She not take any medications for this. She has no further complaints. - Related Data Home Medications Medication Instructions Recorded Confirmed Aspirin 81 mg PO HS 06/11/15 01/18/18 Bethanechol Chloride [Urecholine] 5 mg PO DAILY PRN 05/05/17 01/18/18 Fludrocortisone [Florinef] 0.1 mg PO BID@0800,1400 05/05/17 01/18/18 Pregabalin [Lyrica] 25 mg PO HS 05/05/17 01/18/18 Propranolol HCl 80 mg PO QID 05/05/17 01/18/18 buPROPion [Wellbutrin] 75 mg PO BID@0800,1400 05/05/17 01/18/18 Topiramate [Topamax] 100 mg PO HS 08/25/17 01/18/18 Ascorbic Acid [Vitamin C] 1,000 mg PO DAILY 01/18/18 01/18/18 Cyanocobalamin [Vitamin B-12] 500 mcg PO DAILY 01/18/18 01/18/18 Levothyroxine Sodium [Synthroid] 50 mcg PO DAILY 01/18/18 01/18/18 Melatonin 6 mg PO HS 01/18/18 01/18/18 Riboflavin (Vitamin B2) [Vitamin 50 mg PO DAILY 01/18/18 01/18/18 B-2] Vitamin C/Biotin [Hair, Skin and 1 tab PO DAILY 01/18/18 01/18/18 Nails] oxyCODONE-APAP 7.5-325MG [Percocet 1 tab PO TID PRN 01/18/18 01/18/18 7.5-325 mg] Previous Rx's Medication Instructions Recorded Cephalexin [Keflex] 500 mg PO Q12HR #14 cap 01/18/18 Cyclobenzaprine [Flexeril] 5 mg PO BID #15 tablet 04/21/21 Allergies Allergy/AdvReac Type Severity Reaction Status Date / Time adhesive tape Allergy Unknown Verified 04/21/21 11:16 metoclopramide HCl Allergy Unknown Verified 04/21/21 11:16 [From Reglan] prochlorperazine edisylate Allergy Unknown Verified 04/21/21 11:16 [From Compazine] prochlorperazine maleate Allergy Unknown Verified 04/21/21 11:16 [From Compazine] promethazine HCl Allergy Unknown Verified 04/21/21 11:16 [From Phenergan] sulfamethoxazole Allergy Unknown Verified 04/21/21 11:16 [From Bactrim] trimethoprim [From Bactrim] Allergy Unknown Verified 04/21/21 11:16 NSAIDS (Non-Steroidal AdvReac PAIN Verified 04/21/21 11:16 Anti-Inflamma sumatriptan [From Imitrex] AdvReac Unknown Verified 04/21/21 11:16 sumatriptan succinate AdvReac Unknown Verified 04/21/21 11:16 [From Imitrex] Review of Systems ROS Statement: Those systems with pertinent positive or pertinent negative responses have been documented in the HPI. ROS Other: All systems not noted in ROS Statement are negative. Past Medical History Past Medical History: CVA/TIA, Thyroid Disorder Additional Past Medical History / Comment(s): migraines, pots, endometriosis, interstitial cystitis,kidney stones History of Any Multi-Drug Resistant Organisms: None Reported Past Surgical History: Appendectomy, Back Surgery, Bariatric Surgery, Cholecystectomy, Hysterectomy, Tonsillectomy Additional Past Surgical History / Comment(s): right oopherectomy Past Psychological History: Anxiety Smoking Status: Never smoker Past Alcohol Use History: Occasional Past Drug Use History: None Reported General Exam - General Exam Comments Initial Comments: GENERAL: Patient is well-developed and well-nourished. Patient is nontoxic and in no a cute distress. HEAD: Atraumatic, normocephalic. EYES: Pupils equal round and reactive to light, extraocular movements intact, sclera anicteric, conjunctiva are normal. Eyelids were unremarkable. ENT: TMs normal, nares patent, oropharynx clear without exudates. Moist mucous membranes. NECK: Normal range of motion, supple without lymphadenopathy or JVD. LUNGS: Unlabored respirations. Breath sounds clear to auscultation bilaterally and equal. No wheezes rales or rhonchi. HEART: Regular rate and rhythm without murmurs, rubs or gallops. ABDOMEN: Soft, nontender, normoactive bowel sounds. No guarding, no rebound. No masses appreciated. : Deferred MUSCULOSKELETAL: Normal extremities with adequate strength and normal range of motion, no pitting or edema. No clubbing or cyanosis. Patient has some mild pain in the lumbar paraspinals, increased discomfort with trunk extension and flexion. NEUROLOGICAL: Patient is alert and oriented x 3. Motor and sensory are also intact. Cranial nerves II through XII grossly intact. Symmetrical smile. Normal speech, normal gait. PSYCH: Normal mood, normal affect. SKIN: Warm, Dry, normal turgor, no rashes or lesions noted. Limitations: no limitations Course Vital Signs 04/21/21 11:14 Temperature 98.1 F Pulse Rate 72 Respiratory 18 Rate Blood Pressure 121/83 O2 Sat by Pulse 97 Oximetry Medical Decision Making - Medical Decision Making Patient is a 41-year-old female here with low back pain since this morning after bending over to apple picker some laundry. No acute neuro deficits, no signs of cauda equina. X-rays show degenerative disc disease, no acute abnormalities. Patient was given Toradol and Valium today for discomfort. She is stable for discharge. I will give her some Tylenol 3's to go home with as well as a prescription for muscle relaxers. Recommend heat or ice to areas well. She follow-up with her doctor if symptoms persist. She is in agreement with this plan of care and she is stable for discharge. Return parameters were discussed with her and she verbalized understanding. Case discussed with Dr. Young. Disposition Clinical Impression: Strain of lumbar region, Mechanical back pain Disposition: HOME SELF-CARE Condition: Stable Instructions (If sedation given, give patient instructions): Acute Low Back Pain (ED) Additional Instructions: Please return to the Emergency Department if symptoms worsen or any other concerns. Recommend alternating between ibuprofen and Tylenol for discomfort. May apply ice or heat to the area, gentle stretching. Laying flat on the floor with legs elevated could be of some comfort. Trial of muscle relaxers. Follow-up with your regular doctor. Prescriptions: Cyclobenzaprine [Flexeril] 5 mg PO BID #15 tablet Is patient prescribed a controlled substance at d/c from ED?: No Referrals: Gema Rondon MD [Primary Care Provider] - 1-2 days Time of Disposition: 13:18
[2021-04-21] MEDS ORDERED: ACET/COD 300 MG/30 MG STARTER PACK 6 TAB BTL PO STA (13:38)
[2021-04-21 13:45] VITALS: BP 118/78; PULSE 78; RESP 16; TEMP 98
== END 2021-04-21 13:44 | disposition home or self-care (01) ==
LOC: EC 11:03
DX: S39.012A Strain of muscle, fascia and tendon of lower back, initial encounter (principal); F41.9 Anxiety disorder, unspecified; G43.909 Migraine, unspecified, not intractable, without status migrainosus; Z86.73 Personal history of transient ischemic attack (TIA), and cerebral infarction without residual deficits; Z79.82 Long term (current) use of aspirin; X50.1XXA Overexertion from prolonged static or awkward postures, initial encounter
CPT/HCPCS: 72100; 99283; 96372; J1885

== ENCOUNTER → 2023-08-05 | Outpatient (CLI) | payer MEDICARE ==
--- NOTE | 2023-08-05 15:44 | US ---
EXAMINATION TYPE: US venous doppler duplex LE LT DATE OF EXAM: 08/05/2023 7:45 AM COMPARISON: NONE CLINICAL INDICATION: Female, 43 years old with history of I80.9 PHLEBITIS AND THROMBOPHLEBITIS OF UNS PECIFIED; Knee pain. Slight swelling. On baby aspirin. SIDE PERFORMED: Left TECHNIQUE: The lower extremity deep venous system is examined utilizing real time linear array sonog puneet with graded compression, doppler sonography and color-flow sonography. VESSELS IMAGED: Common Femoral Vein Deep Femoral Vein Greater Saphenous Vein * Femoral Vein Popliteal Vein Small Saphenous Vein * Proximal Calf Veins Posterior tibial veins (* superficial vessels) Left Leg: Negative for DVT IMPRESSION: No evidence for DVT within the left lower extremity.
== END | disposition home or self-care (01) ==
LOC: RADUSWWP 07:10
PROVIDERS: ATTEND Orthopaedic Surgery
DX: I80.9 Phlebitis and thrombophlebitis of unspecified site (principal); M23.8X2 Other internal derangements of left knee

== ENCOUNTER → 2023-09-30 | Outpatient (CLI) | payer MEDICARE ==
--- NOTE | 2023-10-07 08:49 | FL ---
EXAMINATION TYPE: FL UGI air w small bowel DATE OF EXAM: 09/30/2023 1:09 PM COMPARISON: NONE CLINICAL HISTORY: K31.89 OTHER DISEASES OF STOMACH AND DUODENUM A total of 104 seconds of fluoroscopic time was utilized during procedure and 25 images obtained. Preliminary film of the abdomen reveals no definite abnormality. Upper GI examination was performed u tilizing the dual contrast technique. Thin liquid barium was ingested without difficulty or delay. Es ophageal peristalsis and motility are within normal limits. There is no evidence for hiatal hernia o r esophagitis. Limited distention of the stomach. Gastric folds appear to be prominent. Correlate for gastritis. No gastric filling defects are seen. No gastric ulcer craters are seen. The duodenal bu lb and sweep appear to be grossly unremarkable without evidence for filling defect or ulcer crater. Small bowel follow through is performed with a normal transit time. The small bowel loops are of norm al caliber and demonstrate a normal mucosal fold pattern. The terminal ileum is unremarkable. IMPRESSION: Limited study. Correlate for gastritis.
== END | disposition home or self-care (01) ==
LOC: RADFLMAIN 07:59
PROVIDERS: ATTEND Family Medicine
DX: K31.89 Other diseases of stomach and duodenum (principal)
CPT/HCPCS: 74240; 74248

== ENCOUNTER 2023-10-07 00:46 | Inpatient (IN) | payer MEDICARE ==
[2023-10-07] MEDS ORDERED: HYDROmorphone 1 MG/ML 1 ML SYRINGE IVP STA ×2 (01:23→11:35)
[2023-10-07] MEDS ORDERED: SODIUM CHLORIDE 0.9% 1,000 ML IV STA (01:25)
--- NOTE | 2023-10-07 01:29 | ED ---
Lower Extremity Injury HPI - General Chief Complaint: Extremity Injury, Lower Stated Complaint: Syncope, ankle injury Time Seen by Provider: 10/07/23 01:21 Source: patient, RN notes reviewed, old records reviewed Mode of arrival: EMS Limitations: no limitations - History of Present Illness Initial Comments: This is a 43-year-old female presents emergency for evaluation regards to fall with syncopal event. Patient has severe right leg pain. With occurred after syncopal event. Patient has severe right ankle pain right knee pain after fall was able to ambulate. Patient has no current complaints, she states she does pass out occasionally with medications that she takes at night over sleep trazodone. MD Complaint: knee injury, ankle injury -: days(s) Injury: Knee: Right, Ankle: Right Type of Injury: inversion, eversion Place: home Severity: severe Severity scale (1-10): 8 Improves With: nothing Worsens With: nothing Context: fall, direct blow Other Symptoms: loss of consciousness Associated Symptoms: swelling - Related Data Home Medications Medication Instructions Recorded Confirmed Aspirin 81 mg PO HS 06/11/15 10/07/23 Propranolol HCl 80 mg PO TID 05/05/17 10/07/23 Topiramate [Topamax] 100 mg PO HS 08/25/17 10/07/23 Cyanocobalamin [Vitamin B-12] 500 mcg PO DAILY 01/18/18 10/07/23 Desvenlafaxine Succinate [Pristiq 50 mg PO DAILY 10/07/23 10/07/23 ER] Desvenlafaxine Succinate [Pristiq] 25 mg PO DAILY 10/07/23 10/07/23 Multivitamins, Thera [Multivitamin 1 tab PO DAILY 10/07/23 10/07/23 (formulary)] Ondansetron Odt [Zofran ODT] 4 mg PO QID PRN 10/07/23 10/07/23 buPROPion HCL [buPROPion HCL XL] 300 mg PO DAILY 10/07/23 10/07/23 clonazePAM 0.5 mg PO DAILY PRN 10/07/23 10/07/23 Previous Rx's Medication Instructions Recorded HYDROcodone/APAP 5-325MG [[place] 5] 1 each PO Q4HR PRN #42 tab 10/08/23 HYDROcodone/APAP 7.5-325MG [[place] 1 tab PO Q4H PRN 7 Days #42 tab 10/09/23 7.5-325] hydrOXYzine pamoate [Vistaril] 25 mg PO Q4-6H #30 capsule 10/10/23 Pantoprazole [Protonix] 40 mg PO AC-BRKFST 15 Days #15 tab 10/11/23 Sennosides-Docusate Sodium 1 tab PO BID PRN #60 tablet 10/11/23 [Senokot-S] traZODone HCL 100 mg PO HS #0 10/11/23 Allergies Allergy/AdvReac Type Severity Reaction Status Date / Time adhesive tape Allergy Unknown Verified 10/07/23 07:03 metoclopramide HCl Allergy Unknown Verified 10/07/23 07:03 [From Reglan] promethazine HCl Allergy Unknown Verified 10/07/23 07:03 [From Phenergan] sulfamethoxazole Allergy Rash/Hives Verified 10/07/23 07:03 [From Bactrim] sumatriptan [From Imitrex] Allergy Unknown Verified 10/07/23 07:03 sumatriptan succinate Allergy Unknown Verified 10/07/23 07:03 [From Imitrex] trimethoprim [From Bactrim] Allergy Rash/Hives Verified 10/07/23 07:03 NSAIDS (Non-Steroidal AdvReac Pain, Verified 10/07/23 07:03 Anti-Inflamma Nausea & Vomiting prochlorperazine edisylate AdvReac Pain, Verified 10/07/23 07:03 [From Compazine] Nausea & Vomiting prochlorperazine maleate AdvReac Pain, Verified 10/07/23 07:03 [From Compazine] Nausea & Vomiting Review of Systems ROS Statement: Those systems with pertinent positive or pertinent negative responses have been documented in the HPI. ROS Other: All systems not noted in ROS Statement are negative. Past Medical History Past Medical History: CVA/TIA, Thyroid Disorder Additional Past Medical History / Comment(s): migraines, pots, endometriosis, interstitial cystitis,kidney stones History of Any Multi-Drug Resistant Organisms: None Reported Past Surgical History: Appendectomy, Back Surgery, Bariatric Surgery, Cholecystectomy, Hysterectomy, Tonsillectomy Additional Past Surgical History / Comment(s): right oopherectomy Past Psychological History: Anxiety Smoking Status: Never smoker Past Alcohol Use History: Occasional Past Drug Use History: None Reported General Exam Limitations: no limitations General appearance: alert, in no apparent distress Head exam: Present: atraumatic, normocephalic, normal inspection Eye exam: Present: normal appearance, PERRL, EOMI. Absent: scleral icterus, conjunctival injection, periorbital swelling ENT exam: Present: normal exam, mucous membranes moist Neck exam: Present: normal inspection. Absent: tenderness, meningismus, lymphadenopathy Respiratory exam: Present: normal lung sounds bilaterally. Absent: respiratory distress, wheezes, rales, rhonchi, stridor Cardiovascular Exam: Present: regular rate, normal rhythm, normal heart sounds. Absent: systolic murmur, diastolic murmur, rubs, gallop, clicks GI/Abdominal exam: Present: soft, normal bowel sounds. Absent: distended, tenderness, guarding, rebound, rigid Extremities exam: Present: normal inspection, full ROM, normal capillary refill. Absent: tenderness, pedal edema, joint swelling, calf tenderness Back exam: Present: normal inspection Neurological exam: Present: alert, oriented X3, CN II-XII intact Psychiatric exam: Present: normal affect, normal mood Skin exam: Present: warm, dry, intact, normal color. Absent: rash Course Vital Signs 10/07/23 10/07/23 10/07/23 00:48 02:32 05:00 Temperature 97.7 F Pulse Rate 70 66 69 Pulse Rate [ Right] Respiratory 18 18 18 Rate Blood Pressure 97/64 101/73 106/67 Blood Pressure [Right Arm] O2 Sat by Pulse 99 100 100 Oximetry 10/07/23 10/07/23 09:00 14:39 Temperature Pulse Rate Pulse Rate [ 83 84 Right] Respiratory 18 18 Rate Blood Pressure Blood Pressure 101/70 91/68 [Right Arm] O2 Sat by Pulse 100 96 Oximetry - Reevaluation(s) Reevaluation #1: 10/07/23 01:50 Medical record is reviewed Reevaluation #2: 10/07/23 02:09 Patient's pain is controlled Reevaluation #3: 10/07/23 02:09 Patient informed results and questions answered Reevaluation #4: 10/07/23 02:09 Was pt. sent in by a medical professional or institution (, PA, CONFERENCE CENTER MANAGER, urgent care, hospital, or shelter...) When possible be specific @ -no Did you speak to anyone other than the patient for history (EMS, parent, family, police, friend...)? What history was obtained from this source @ -no Did you review nursing and triage notes (agree or disagree)? Why? @ -agree Are old charts reviewed (outside hosp., previous admission, EMS record, old EKG, old radiological studies, urgent care reports/EKG's, shelter records)? Report findings @ -yes Differential Diagnosis (chest pain, altered mental status, abdominal pain women, abdominal pain men, vaginal bleeding, weakness, fever, dyspnea, syncope, headache, dizziness, GI bleed, back pain, seizure, CVA, palpatations, mental health, musculoskeletal)? @ -prior EKG interpreted by me (3pts min.). @ -yes X-rays interpreted by me (1pt min.). @ -yes positive for tib-fib fracture CT interpreted by me (1pt min.). @ -no U/S interpreted by me (1pt. min.). @ -no What testing was considered but not performed or refused? (CT, X-rays, U/S, labs)? Why? @ -none What meds were considered but not given or refused? Why? @ -none Did you discuss the management of the patient with other professionals (joao richards i.e., Dr., PA, CONFERENCE CENTER MANAGER, lab, RT, psych nurse, social media marketing manager, shellfish sorter, teacher, consumer safety officer, community case manager)? Give summary @ -no Was smoking cessation discussed for >3mins.? @ -no Was critical care preformed (if so, how long)? @ -no Were there social determinants of health that impacted care today? How? (Homelessness, low income, unemployed, alcoholism, drug addiction, transportation, low edu. Level, literacy, decrease access to med. care, care home, rehab)? @ -none Was there de-escalation of care discussed even if they declined (Discuss DNR or withdrawal of care, Hospice)? DNR status @ -no What co-morbidities impacted this encounter? (DM, HTN, Smoking, COPD, CAD, Cancer, CVA, ARF, Chemo, Hep., AIDS, mental health diagnosis, sleep apnea, morbid obesity)? @ -none Was patient admitted / discharged? Hospital course, mention meds given and route, prescriptions, significant lab abnormalities, going to OR and other pertinent info. @ - 43 female to the emergency department for evaluation of right leg fracture patient does have significant fracture of right tibia and right fibula. Patient is splinted will admit for fracture valuation management, patient also had a syncopal event and will be placed on telemetry Admitted to the emergency department Undiagnosed new problem with uncertain prognosis? @ -no Drug Therapy requiring intensive monitoring for toxicity (Heparin, Nitro, Insulin, Cardizem)? @ -no Were any procedures done? @ -Yes fracture reduction like Diagnosis/symptom? @ -Right tibia-fibula fracture and dislocation Acute, or Chronic, or Acute on Chronic? @ -Acute Uncomplicated (without systemic symptoms) or Complicated (systemic symptoms)? @ -Complicated Side effects of treatment? @ -no Exacerbation, Progression, or Severe Exacerbation? @ -exacerbation Poses a threat to life or bodily function? How? (Chest pain, USA, CA, pneumonia, PE, COPD, DKA, ARF, appy, cholecystitis, CVA, Diverticulitis, Homicidal, Suicidal, threat to staff... and all critical care pts) @ -no Reevaluation #5: 10/07/23 02:41 Differential Syncope: Valvular disease, hypertrophic cardiomyopathy, pulmonary embolism, tamponade, tachycardia, bradycardia, CA, hypovolemia, hemorrhage, dissection, anemia, intracranial hemorrhage, seizure, hypoglycemia, carbon monoxide poisoning, this is not meant to be an all-inclusive list. - Consultations Consultation #1: Spoke with Dr. Salas will admit the patient orthopedics Procedures - Orthopedic Fracture Reduction Fracture #1 Consent Obtained: verbal consent Side: left Fracture Reduction Location: tibia, fibula Technique: direct manipulation Post Reduction X-rays Demonstrate: acceptable reduction Post-Reduction Neuro Exam: intact Post-Reduction Vascular Exam: intact Splint Applied: Yes Patient Tolerated Procedure: well Medical Decision Making - Medical Decision Making 43 female to the emergency department for evaluation of right leg fracture patient does have significant fracture of right tibia and right fibula. Patient is splinted will admit for fracture valuation management, patient also had a s yncopal event and will be placed on telemetry - Lab Data Result diagrams: 10/07/23 23:09 10/10/23 05:00 Lab Results 10/07/23 10/07/23 10/07/23 Range/Units 01:42 01:42 01:42 WBC 5.0 (3.8-10.6) k/uL RBC 3.09 L (3.80-5.40) m/uL Hgb 11.9 (11.4-16.0) gm/dL Hct 36.4 (34.0-46.0) % MCV 118.0 H (80.0-100.0) fL MCH 38.4 H (25.0-35.0) pg MCHC 32.5 (31.0-37.0) g/dL RDW 15.4 (11.5-15.5) % Plt Count 243 (150-450) k/uL MPV 8.7 Neutrophils % 57 % Lymphocytes % 32 % Monocytes % 5 % Eosinophils % 3 % Basophils % 1 % Neutrophils # 2.8 (1.3-7.7) k/uL Lymphocytes # 1.6 (1.0-4.8) k/uL Monocytes # 0.3 (0-1.0) k/uL Eosinophils # 0.2 (0-0.7) k/uL Basophils # 0.0 (0-0.2) k/uL Manual Slide Review Performed Hypochromasia Marked Macrocytosis Marked A Ovalocytes Present PT 10.5 (10.0-12.5) sec INR 0.9 (<1.2) APTT 22.0 (22.0-30.0) sec Sodium 138 (137-145) mmol/L Potassium 4.3 (3.5-5.1) mmol/L Chloride 107 (98-107) mmol/L Carbon Dioxide 20 L (22-30) mmol/L Anion Gap 11 mmol/L BUN 13 (7-17) mg/dL Creatinine 0.81 (0.52-1.04) mg/dL Est GFR (CKD-EPI)AfAm >90 (>60 ml/min/1.73 sqM) Est GFR (CKD-EPI)NonAf 89 (>60 ml/min/1.73 sqM) Glucose 87 (74-99) mg/dL Plasma Lactic Acid Spike (0.7-2.0) mmol/L Calcium 8.8 (8.4-10.2) mg/dL Phosphorus 3.4 (2.5-4.5) mg/dL Magnesium 2.3 (1.6-2.3) mg/dL Total Bilirubin 0.5 (0.2-1.3) mg/dL AST 48 H (14-36) U/L ALT 34 (4-34) U/L Alkaline Phosphatase 99 (38-126) U/L Troponin I (0.000-0.034) ng/mL Total Protein 6.2 L (6.3-8.2) g/dL Albumin 3.8 (3.5-5.0) g/dL 10/07/23 10/07/23 Range/Units 01:42 01:42 WBC (3.8-10.6) k/uL RBC (3.80-5.40) m/uL Hgb (11.4-16.0) gm/dL Hct (34.0-46.0) % MCV (80.0-100.0) fL MCH (25.0-35.0) pg MCHC (31.0-37.0) g/dL RDW (11.5-15.5) % Plt Count (150-450) k/uL MPV Neutrophils % % Lymphocytes % % Monocytes % % Eosinophils % % Basophils % % Neutrophils # (1.3-7.7) k/uL Lymphocytes # (1.0-4.8) k/uL Monocytes # (0-1.0) k/uL Eosinophils # (0-0.7) k/uL Basophils # (0-0.2) k/uL Manual Slide Review Hypochromasia Macrocytosis Ovalocytes PT (10.0-12.5) sec INR (<1.2) APTT (22.0-30.0) sec Sodium (137-145) mmol/L Potassium (3.5-5.1) mmol/L Chloride (98-107) mmol/L Carbon Dioxide (22-30) mmol/L Anion Gap mmol/L BUN (7-17) mg/dL Creatinine (0.52-1.04) mg/dL Est GFR (CKD-EPI)AfAm (>60 ml/min/1.73 sqM) Est GFR (CKD-EPI)NonAf (>60 ml/min/1.73 sqM) Glucose (74-99) mg/dL Plasma Lactic Acid Spike 2.6 H* (0.7-2.0) mmol/L Calcium (8.4-10.2) mg/dL Phosphorus (2.5-4.5) mg/dL Magnesium (1.6-2.3) mg/dL Total Bilirubin (0.2-1.3) mg/dL AST (14-36) U/L ALT (4-34) U/L Alkaline Phosphatase (38-126) U/L Troponin I 0.016 (0.000-0.034) ng/mL Total Protein (6.3-8.2) g/dL Albumin (3.5-5.0) g/dL - EKG Data -: EKG Interpreted by Me (EKG is sinus 69 IA 195 QRS 73 QTC 410) - Radiology Data Radiology results: report reviewed (X-ray tib-fib does show Masonneuve fracture), image reviewed Disposition Clinical Impression: Fall, Syncope, Closed right ankle fracture, Right tibial fracture, Closed fracture of head of right fibula, Ma[place]uve fracture of right lower extremity Disposition: ADMITTED IP TO THIS HOSP Condition: Good Is patient prescribed a controlled substance at d/c from ED?: No Time of Disposition: 02:40
[2023-10-07] MEDS ORDERED: HYDROmorphone 0.5 MG/0.5 ML SYRINGE IVP PRN ×2 (02:24→20:07)
[2023-10-07 02:31] LABS: Basophils % (A) 1 %; Eosinophils # (A) 0.2 k/uL (0-0.7); Eosinophils % (A) 3 %; HCT 36.4 % (34.0-46.0); HGB 11.9 gm/dL (11.4-16.0); Hypochromasia Marked; Lymphocytes # (A) 1.6 k/uL (1.0-4.8); Lymphocytes % (A) 32 %; MCH 38.4 pg (25.0-35.0); MCHC 32.5 g/dL (31.0-37.0); Macrocytosis Marked; Mean Platelet Volume 8.7; Monocytes # (A) 0.3 k/uL (0-1.0); Monocytes % (A) 5 %; Neutrophils # (A) 2.8 k/uL (1.3-7.7); Neutrophils % (A) 57 %; Platelet Count 243 k/uL (150-450); RBC 3.09 m/uL (3.80-5.40); RDW 15.4 % (11.5-15.5)
[2023-10-07] MEDS: SODIUM CHLORIDE 0.9% 1,000 ML IV SCH ×3 (02:35→23:33)
[2023-10-07] MEDS ORDERED: NALOXONE 0.4 MG/ML 1 ML VIAL IV PRN ×2 (02:38→20:08)
[2023-10-07] MEDS ORDERED: ONDANSETRON 4 MG/2 ML VIAL IVP PRN ×2 (02:38→20:08)
[2023-10-07 02:43] LABS: INR 0.9 (<1.2); Prothrombin Time 10.5 sec (10.0-12.5)
[2023-10-07 02:59] LABS: ALT 34 U/L (4-34); AST 48 U/L (14-36); African American GFR (CKD) >90 (>60 ml/min/1.73 sqM); Albumin 3.8 g/dL (3.5-5.0); Alkaline Phosphatase 99 U/L (38-126); Anion Gap 11 mmol/L; Blood Urea Nitrogen 13 mg/dL (7-17); Calcium 8.8 mg/dL (8.4-10.2); Carbon Dioxide 20 mmol/L (22-30); Chloride 107 mmol/L (98-107); Glucose 87 mg/dL (74-99); Magnesium 2.3 mg/dL (1.6-2.3); Non-African American GFR(CKD) 89 (>60 ml/min/1.73 sqM); Phosphorus 3.4 mg/dL (2.5-4.5); Potassium 4.3 mmol/L (3.5-5.1); Sodium 138 mmol/L (137-145); Total Bilirubin 0.5 mg/dL (0.2-1.3); Total Protein 6.2 g/dL (6.3-8.2)
[2023-10-07] MEDS: HYDROmorphone 1 MG/ML 1 ML SYRINGE IVP PRN ×5 (03:10→22:03)
[2023-10-07 03:31] LABS: Ovalocytes Present
--- NOTE | 2023-10-07 06:00 | XR ---
EXAM: XR Right Tibia and Fibula, 1 View CLINICAL HISTORY: [email or web address].REASON XR Reason: fall TECHNIQUE: Frontal or lateral views of the right tibia and fibula. COMPARISON: No relevant prior studies available. FINDINGS: Bones/joints: Comminuted fracture of the distal tibial diaphysis with displacement. Oblique, comminuted fracture of the proximal fibular metadiaphysis. No dislocation. Soft tissues: Unremarkable. No radiopaque foreign body. IMPRESSION: 1. Comminuted fracture of the distal tibial diaphysis with displacement. 2. Oblique, comminuted fracture of the proximal fibular metadiaphysis.
--- NOTE | 2023-10-07 06:04 | XR ---
EXAM: XR Right Ankle Complete, 3 or More Views CLINICAL HISTORY: [email or web address] XR Reason: post reduction distal tibial shaft fracture TECHNIQUE: Frontal, lateral and oblique views of the right ankle. COMPARISON: No relevant prior studies available. FINDINGS: Bones/joints: Comminuted fracture of the distal tibial diaphysis with displacement. No dislocation. Soft tissues: Unremarkable. IMPRESSION: Comminuted fracture of the distal tibial diaphysis with displacement.
--- NOTE | 2023-10-07 06:08 | XR ---
EXAM: XR Right Tibia and Fibula, 2 Views CLINICAL HISTORY: [email or web address].[email or web address] XR Reason: post reduction distal tibial shaft fracture TECHNIQUE: Frontal and lateral views of the right tibia and fibula. COMPARISON: Prior tib-fib x-ray earlier today 0114 hours FINDINGS: Bones/joints: Comminuted right proximal fibular metadiaphysis fracture similar to the prior. Similar appearance of comminuted distal tibial diaphysis fracture with displacement. No dislocation. Soft tissues: Unremarkable. No radiopaque foreign body. Other findings: Interval placement of cast material. IMPRESSION: 1. Interval placement of cast material. 2. Similar appearance of comminuted right proximal fibular and distal tibial fractures.
[2023-10-07 08:57] LABS: Appearance,Urine Clear (Clear); Bilirubin,Urine Negative (Negative); Color,Urine Yellow; Glucose,Urine (UA) Negative (Negative); Ketones,Urine Negative (Negative); Protein,Urine Negative (Negative)
[2023-10-07 08:58] LABS: Blood,Urine Negative (Negative); Leukocyte Esterase,Urine Negative (Negative); Nitrite,Urine Negative (Negative); Urobilinogen,Urine 0.2 mg/dL (<2.0)
--- NOTE | 2023-10-07 10:40 | P.HPOR ---
History of Present Illness H&P Date: 10/07/23 Chief Complaint: Right lower extremity pain status post lost consciousness and fall at home Patient is a pleasant 43-year-old female who sustained an injury overnight last night at home. The patient has new acute traumatic right lower extremity pain due to her fall. Apparently patient normally takes trazodone for sleep and had her dose recently increased. She got up to use the bathroom overnight and felt significantly dizzy she says she passed out and fell in the hallway. She does not remember breaking her ankle. She feels she is only this passed out for a moment and had severe acute pain at her right lower leg. She denies any other injuries. She admits to chronic low back pain. She denies any prior injury to her leg in the past. She says she has some chronic left knee pain. She denies any chest pain or shortness of breath. She denies any nausea or vomiting. She denies any fevers chills. She says she has passed up for better trazodone. Review of Systems Per HPI. Severe pain at her right leg and her lower leg with any motion. She is no pain in her hip. Her left leg have any pain with palpation range of motion. Her back and neck and arms do not have any pain. She denies any nausea or vomiting . She admits to having lost consciousness last night before she fell and passing out at home. She feels she is only out for a moment due to her trazodone. She does not remember how she broke her leg but was in a standing position. She woke up On the floor Past Medical History Past Medical History: CVA/TIA, Thyroid Disorder Additional Past Medical History / Comment(s): On disability due to PoT's disease migraines, pots, endometriosis, interstitial cystitis,kidney stones History of Any Multi-Drug Resistant Organisms: None Reported Past Surgical History: Appendectomy, Back Surgery, Bariatric Surgery, Cholecystectomy, Hysterectomy, Tonsillectomy Additional Past Surgical History / Comment(s): right oopherectomy Past Psychological History: Anxiety Smoking Status: Never smoker Past Alcohol Use History: Occasional Past Drug Use History: None Reported Medications and Allergies Home Medications Medication Instructions Recorded Confirmed Type Aspirin 81 mg PO HS 06/11/15 10/07/23 History Propranolol HCl 80 mg PO TID 05/05/17 10/07/23 History Topiramate [Topamax] 100 mg PO HS 08/25/17 10/07/23 History Cyanocobalamin [Vitamin B-12] 500 mcg PO DAILY 01/18/18 10/07/23 History Desvenlafaxine Succinate [Pristiq 25 mg PO DAILY 10/07/23 10/07/23 History ER] Desvenlafaxine Succinate [Pristiq 50 mg PO DAILY 10/07/23 10/07/23 History ER] Multivitamins, Thera [Multivitamin 1 tab PO DAILY 10/07/23 10/07/23 History (formulary)] Ondansetron Odt [Zofran Odt] 4 mg PO QID PRN 10/07/23 10/07/23 History buPROPion HCL [buPROPion HCL XL] 300 mg PO DAILY 10/07/23 10/07/23 History clonazePAM 0.5 mg PO DAILY PRN 10/07/23 10/07/23 History traZODone HCL 150 mg PO HS 10/07/23 10/07/23 History Allergies Allergy/AdvReac Type Severity Reaction Status Date / Time adhesive tape Allergy Unknown Verified 10/07/23 07:03 metoclopramide HCl Allergy Unknown Verified 10/07/23 07:03 [From Reglan] promethazine HCl Allergy Unknown Verified 10/07/23 07:03 [From Phenergan] sulfamethoxazole Allergy Rash/Hives Verified 10/07/23 07:03 [From Bactrim] sumatriptan [From Imitrex] Allergy Unknown Verified 10/07/23 07:03 sumatriptan succinate Allergy Unknown Verified 10/07/23 07:03 [From Imitrex] trimethoprim [From Bactrim] Allergy Rash/Hives Verified 10/07/23 07:03 NSAIDS (Non-Steroidal AdvReac Pain, Verified 10/07/23 07:03 Anti-Inflamma Nausea & Vomiting prochlorperazine edisylate AdvReac Pain, Verified 10/07/23 07:03 [From Compazine] Nausea & Vomiting prochlorperazine maleate AdvReac Pain, Verified 10/07/23 07:03 [From Compazine] Nausea & Vomiting Physical Examination Osteopathic Statement: *. No significant issues noted on an osteopathic stru ctural exam other than those noted in the History and Physical/Consult. - Ankle & Foot right Ankle appearance: swelling (She has large splint of her right leg. Her cap refill at her toes is intact and less than 2 seconds. Compartments feel soft. She is even pain at her tibia and proximal fibula. Unable to move her leg on her own due to pain), other (Her upper and lower extremity on the left have full active and passive range of motion without any pain. Next nontender. Back nontender. Abdomen soft) Tenderness with palpation: anterior ankle, anteromedial ankle Ankle pain worse with weight bearing: Yes Results - Labs Labs: Abnormal Lab Results - Last 24 Hours (Table) 10/07/23 10/07/23 10/07/23 Range/Units 01:42 01:42 01:42 RBC 3.09 L (3.80-5.40) m/uL MCV 118.0 H (80.0-100.0) fL MCH 38.4 H (25.0-35.0) pg Macrocytosis Marked A Carbon Dioxide 20 L (22-30) mmol/L Plasma Lactic Acid Spike 2.6 H* (0.7-2.0) mmol/L AST 48 H (14-36) U/L Total Protein 6.2 L (6.3-8.2) g/dL H & H 10/07/23 Range/Units 01:42 Hgb 11.9 (11.4-16.0) gm/dL Hct 36.4 (34.0-46.0) % Coagulation 10/07/23 Range/Units 01:42 INR 0.9 (<1.2) Result Diagrams: 10/07/23 01:42 10/07/23 01:42 - Diagnostic results Ankle/Foot x-ray: report reviewed, image reviewed (There is a fair comminuted fracture at the distal tibia shaft with displacement approximately 50%. There is proximal spiral fracture at the fibula on the right ankle mortise appears intact. The fracture seems to stop proximally 6 cm proximal to the articular surface of the ankle) Assessment and Plan Assessment: Acute traumatic comminuted distal tibial shaft fracture with displacement due to a fall with proximal fibula fracture Loss of consciousness likely due to medication History of pots postural tachycardia Long-term disability normally a community ambulator without any assistance Plan: Acute traumatic comminuted distal tibial shaft fracture with displacement due to a fall with proximal fibula fracture Loss of consciousness likely due to medication History of pots postural tachycardia Long-term disability normally a community ambulator without any assistance The patient has acute traumatic comminuted distal tibial shaft fracture with displacement due to her fall. She also has a proximal fibular spiral fracture Maisonneu type. The distal tibial fracture is grossly unstable. It does not involve the ankle mortise. The fracture will need surgical stabilization. We will have the patient nothing by mouth. We'll plan for surgical intervention today if she is cleared medicine. I think that her best course of treatment would be to proceed with a open reduction internal fixation with intramedullary wilda fixation of her right tibia. I do not think that the fibula fracture needs fixation. I think that internal fixation will give her the best chance of early mobilization and stabilization with potential for healing of the area. I discussed with her the nature of her injury and the severity of the comminuted fracture of the distal tibia. We discussed the risks including the risk of nonunion or malunion. We discussed risk of bleeding. We discussed risk of infection. We discussed the issues involving her other medical issues and the need for medical clearance. We discussed the risk of anesthesia and the fact that surgery may not alleviate her symptoms and she may have chronic pain. I think that surgery gives her the best chance of recovery and returning to as close to normalcy as possible. I answered her questions best my ability healing she can understand she is agreeable to proceed with surgery. She'll sign informed consent. We will plan to proceed with surgery today if she is medically cleared. Time with Patient: Greater than 30
[2023-10-07] MEDS ORDERED: MIDAZOLAM 2 MG/2 ML VIAL IVP ONE (17:28)
[2023-10-07] MEDS ORDERED: LIDOCAINE 1% INJ 10MG/ML (20 ML MDV) ONE (17:38)
[2023-10-07] MEDS ORDERED: fentaNYL (PF) 50 MCG/ML 2 ML AMP ONE (17:38)
[2023-10-07] MEDS ORDERED: MIDAZOLAM 2 MG/2 ML VIAL ONE (17:38)
[2023-10-07] MEDS ORDERED: GLYCOPYRROLATE 0.2 MG/ML 2 ML VIAL ONE (17:38)
[2023-10-07] MEDS ORDERED: NEOSTIGMINE 1 MG/ML 10 ML VIAL ONE (17:38)
[2023-10-07] MEDS ORDERED: SODIUM CHLORIDE 0.9% 100 ML BAG ONE (17:38)
[2023-10-07] MEDS ORDERED: PROPOFOL 10 MG/ML 20 ML VIAL IV ONE (17:38)
[2023-10-07] MEDS ORDERED: ceFAZolin 1,000 MG VIAL ONE (17:38)
[2023-10-07] MEDS ORDERED: PHENYLEPHRINE-0.9% NACL SYG 1,000 MCG/10 ML SYRINGE ONE (17:38)
[2023-10-07] MEDS ORDERED: HYDROmorphone (PF) 1 MG/ML ONE (17:38)
[2023-10-07] MEDS ORDERED: ROCURONIUM 10 MG/ML (5 ML VIAL) IV ONE (17:38)
[2023-10-07] MEDS ORDERED: SUCCINYLCHOLINE CHLORIDE 200 MG/10 ML VIAL IV ONE (17:38)
[2023-10-07] MEDS ORDERED: IV FLUID CONTINUATION 900 ML IV ONE (17:40)
[2023-10-07] MEDS ORDERED: SODIUM CHLORIDE 0.9% 50 ML with ceFAZolin 2,000 MG IV ONE ×2 (17:40)
--- NOTE | 2023-10-07 20:06 | XR ---
PROCEDURE: XR tibia fibula RT DATE AND TIME: 10/07/2023 7:54 PM CLINICAL INDICATION: PHH; ORIF TIBIA TECHNIQUE: Department protocol COMPARISON: Preoperative radiographs FINDINGS: Total 4 orthogonal views of the right tibia-fibula were obtained. Orthopedic hardware appears in anatomic position and alignment. There is no fracture or malalignment. 2 minute 35 seconds fluoroscopy was used for the procedure, corresponding with 4.4 mGy cumulative air kerma. IMPRESSION: Post ORIF radiograph
[2023-10-07] MEDS ORDERED: BENZOCAINE/MENTHOL LOZENG 1 EACH LOZENGE MUCOUS MEM PRN (20:07)
[2023-10-07] MEDS ORDERED: ONDANSETRON ODT 4 MG TAB PO PRN (20:12)
[2023-10-07] MEDS ORDERED: clonazePAM 0.5 MG TAB PO PRN (20:12)
[2023-10-07] MEDS ORDERED: traZODone HCL 50 MG TAB PO PRN (20:12)
--- NOTE | 2023-10-07 20:23 | P.OP ---
Date of Procedure: 10/07/23 Preoperative Diagnosis: Right traumatic distal tibial comminuted and displaced tibial shaft fracture and proximal fibula fracture due to a fall, close neurovascular intact Right lower extremity pain due to fall Loss of consciousness and subsequent fall at home from a standing height Postoperative Diagnosis: Right traumatic distal tibial comminuted and displaced tibial shaft fracture and proximal fibula fracture due to a fall, close neurovascular intact Right lower extremity pain due to fall Loss of consciousness and subsequent fall at home from a standing height Anesthesia: GETA Pathology: other (Distal tibia remaining sent to pathology) Condition: stable Disposition: PACU Description of Procedure: BRIEF OPERATIVE NOTE Preoperative Diagnosis: Right traumatic distal tibial comminuted and displaced tibial shaft fracture and proximal fibula fracture due to a fall, close neurovascular intact Right lower extremity pain due to fall Loss of consciousness and subsequent fall at home from a standing heightl Postoperative Diagnosis: Same Procedure: Open reduction internal fixation of right distal tibia fracture with intramedullary wilda fixation Use of fluoroscopic guidance Surgeon: Dr. Salas Firer [employer]: underwriting assistant is present throughout the entire the case persistence during positioning, dissection, exposure, visualization, and all crucial elements of the case as well as closure. Anesthesia: General anesthesia Estimated blood loss: Less than approximately 150 mL mL Tourniquet time: Approximately 80 minutes minutes Specimen: Distal tibia remaining sent to pathology Complications: None apparent Components implanted: [employer] intramedullary tibial wilda size 10 x 3 40 with 2 proximal locking screws and 2 distal locking screws Disposition: To recovery room in good stable condition. OPERATIVE INDICATIONS The patient had an acute injury at home yesterday evening when she fell after losing consciousness and falling to the floor. She says she took some extra medication and felt dizzy and fell when she is trying to go the bathroom overnight. She woke up and had sudden acute horrible pain at her distal right leg and deformity. She was brought by ambulance to the emergency department where she was found to have a distal tibia comminuted tibial shaft fracture with proximal fibula fracture with displacement. It was neurovascular intact and neurologically intact. She had sustained and lost consciousness and sustained a fall. She did not have any other injuries besides her right leg. She was being worked up for her loss of consciousness with medicine and admitted to orthopedic service regards to her traumatic tibial shaft fracture. I discussed with her the nature of her injury and the complexity of her fracture. I felt that she could do well with internal fixation of the distal tibia shaft fracture. I discussed all the different treatment options and the repairs risks, occasions alternatives and benefits. I discussed the risk of occasions alternatives and benefits of surgery in relation to her injury. I discussed the risk of bleeding risk and infection risk and need for further surgery risk of decreased loss of motion loss function malunion nonunion hardware failure nerve damage as well as, occasions with surgery were explained. I answered her questions best my ability and she elected proceed with surgical intervention. OPERATIVE SUMMARY After discussing all the risks, patient alternatives and benefits at length, the patient elected to proceed with surgical intervention, signed informed consent, and presented for their procedure. The patient was seen and examined in the preoperative holding area and the surgical site was marked. The patient was given antibiotics and brought to the operating room. The patient was sedated and intubated by anesthesia in standard fashion. The patient was positioned on to the operating room table in a supine position with a pad under her right hip. We were careful to pad any bony prominences and pressure points. We were careful to maintain the patient's cervical spine and good neutral alignment and position throughout. We used C-arm machines to establish union fluoroscopic guidance in AP and lateral positions. We were able to localize the fractures appropriately. The patient was prepped and draped in a normal standard fashion. An appropriate timeout and keystone protocol performed. We were able to proceed with the surgery. The local wound area was infiltrated with local anesthetic. An incision was made over the midline of the tibial tendon at the knee. I was able to dissect down to the peritenon which was split sharply and then the patella and patellar tendon sheath fibers were split at the midline longitudinally bluntly to expose the possible tibial prominence. As able to establish a starting guide pin appropriately at the anterior superior aspect at the midline and start an appropriately. Protecting the soft tissue structures I established a starting guide hole. As able pass a ball-tipped guidewire down the tibial shaft. I was able to hold the fracture in good alignment good position and used a bone clamp to establish good approximation of the fracture in near align anatomic alignment and position at the fracture site and was able pass the guidewire across fracture site into the distal tibia. The fracture is quite distal and I was able to expose passed the wire near the distal articular surface of the tibia without penetrating the distal articular surface. We were then able to do sequential reaming maintaining good alignment good position and protecting the soft tissues at the patella tendon up to an 11/2 reamer. The distal tibial reamings were sent to pathology. With this established we also did appropriate measuring and shows appropriate size wilda. The wound was irrigated and suctioned dry and we are place the wilda attached to the jig into the proximal tibial shaft down the shaft across the fracture site and into the distal tibia while holding excellent alignment position at the fracture site. It was seated well. Through the jig I was able place 2 proximal locking screws with separate incisions there were drilled placed in good alignment good position with good bony purchase. We able to remove the jig and focus on the distal locking screws. The fracture had excellent alignment and position. Distal locking screws were placed with a freehand technique and C-arm utilization and a mediolateral an anteromedial trajectories. They each had excellent alignment and position with good bony purchase. The fracture was checked and found to have excellent stability. There was excellent alignment and position throughout. The hardware is stable. The wound was copiously irrigated and suctioned dry we'll proceed with closure. We were able to proceed with closure. The peritenon was irrigated suctioned dry closed with 4-0 Vicryl. Deep layers were closed with 2-0 Vicryl subcu tissues closed 2-0 Vicryl and skin was closed with 4-0 Vicryl and skin was closed including The wound was cleaned and dried and dressed with the appropriate dressing. I replaced dry dressing and Shay wrap over the lower leg. The drapes were broken down. The patient was gently rolled back onto their hospital bed being careful to maintain their cervical spine and good neutral alignment and position. They were woken up by anesthesia, extubated, and brought to the recovery room in good stable condition. The patient will be admitted to the hospital for prophylactic IV antibiotics p ain control and mobilization remaining nonweightbearing on her right lower extremity. She is continuing medical management in regard to her os consciousness and we will follow her closely.
[2023-10-07] MEDS ORDERED: LACTATED RINGERS 1,000 ML IV ONE ×2 (20:30)
[2023-10-07] MEDS: TOPIRAMATE 100 MG TAB PO SCH (22:02)
[2023-10-07] MEDS: ASPIRIN 81 MG PO SCH (22:02)
[2023-10-07] MEDS: SENNOSIDES-DOCUSATE SODIUM 1 EACH TAB PO SCH (22:02)
[2023-10-07] MEDS: PROPRANOLOL 40 MG TAB PO SCH (22:03)
[2023-10-07] MEDS: HYDROcodone/APAP 5-325MG 1 EACH TAB PO PRN (23:32)
--- NOTE | 2023-10-08 00:21 | P.CONS ---
History of Present Illness - Reason for Consult Consult date: 10/07/23 Medical management, medical clearance, right leg and ankle fracture - History of Present Illness This is a pleasant 43-year-old female who presented to the emergency department via EMS with severe right leg pain and difficulty in ambulation. Patient follows with Dr. Brian Gaston in the outpatient setting with a past medical history of CVA/TIA, thyroid disorder, Pots disease, migraines, endometriosis, interstitial cystitis with previous kidney stones, anxiety. Patient was admitted to orthopedics as patient was found to have a comminuted fracture of the distal tibia diaphysis with displacement, oblique comminuted fracture of the proximal fibular metadiaphysis and medicine was consulted for medical clearance as patient was noted to have an episode of syncope with fall. Patient reports has been taking trazodone for sleep at night and recently had an increased dose and was up at night and felt slightly dizzy and does not recall falling and had a syncopal event and woke up with severe right lower extremity pain. EKG showed sinus rhythm with heart rate of 69 beats for minute, labs with a white count of 5.0, hemoglobin 11.9, platelets 243, sodium 138, potassium 4.3, BUN 13, creatinine 0.81, initial plasma lactic acid was 2.6 and reflux this morning was within normal limits and negative, magnesium 2.3, troponin 0.016 Review Of Systems: Constitutional: No fever, no chills, no night sweats. No weight change. No weakness, fatigue or lethargy. No daytime sleepiness. EENT: No headache. No blurred vision or double vision, no loss of vision. No loss of Hearing, no ringing in the ears, no dizziness. No nasal drainage or congestion. No epistaxis. No sore throat. Lungs: No shortness of breath, cough, no sputum production. No wheezing. Cardiovascular: No chest pain, no lower extremity edema. No palpitations. No paroxysmal nocturnal dyspnea. No orthopnea. No lightheadedness or dizziness. No syncopal episodes. Abdominal: No abdominal pain. No nausea, vomiting. No diarrhea. No cons tipation. No bloody or tarry stools.. No loss of appetite. Genitourinary: No dysuria, increased frequency, urgency. No urinary retention. Musculoskeletal: No myalgias. No muscle weakness, reports gait dysfunction, no frequent falls although fell last night. Reports chronic back pain. No neck p ain. Integumentary: No wounds, no lesions. No rash or pruritus. No unusual bruising. No change in hair or nails. Neurologic: No aphasia. No facial droop. No change in mentation. No head injury. No headache. No paralysis. No paresthesia. Psychiatric: No depression. Reports history of anxiety. No mood swings. Endocrine: No abnormal blood sugars. No weight change. No excessive sweating or thirst. No cold intolerance. PHYSICAL EXAMINATION: GENERAL: The patient is alert and oriented x4, Well developed, well nourished. HEENT: Pupils are round and equally reacting to light. EOMI. no scleral icterus. No conjunctival pallor. Normocephalic, atraumatic. No pharyngeal erythema. No thyromegaly. CARDIOVASCULAR: S1 and S2 muffled PULMONARY: diminished breath sounds bilaterally otherwise clear to auscultation with no wheezing or rhonchi noted. ABDOMEN: soft. Nontender on exam. non-distended, normoactive bowel sounds. No palpable organomegaly. MUSCULOSKELETAL: No joint swelling or deformity. Right lower extremity splinted with positive Refill less than 3 seconds and positive pulses noted EXTREMITIES: No cyanosis, clubbing, or pedal edema. Severe tenderness on light palpation of the right lower extremity NEUROLOGICAL: Gross neurological examination did not reveal any focal deficits. Diffuse weakness SKIN: No rashes. Assessment: Severe right lower extremity pain secondary to fall with acute traumatic comminuted distal tibial fracture with displacement as well as proximal fibula fracture Syncopal episode, likely due to trazodone effect Lactic acidosis, present on admission likely secondary to fall with syncope, resolved History of postural orthostatic tachycardia syndrome History of CVA/TIA History of hypothyroidism History of migraines History of interstitial cystitis History of kidney stones GI prophylaxis DVT prophylaxis Full code Plan: Recommend to continue with current medications and management per orthopedic services. Medicine consulted for medical clearance and risks versus benefits were discussed and patient is considered low risk for operative procedure and given severity of pain and fracture noted patient medically stable to proceed wi th surgical intervention Patient is currently nothing by mouth with orthopedics planning to perform surgical intervention this afternoon. Will await report. We'll obtain basic labs along with repeat labs in the a.m. Continue with pain management per orthopedics along with DVT prophylaxis Home medications reviewed and resumed as appropriate and will resume oral medications after surgical intervention Patient presented with mildly elevated lactic acid most likely secondary to traumatic incident with syncope and fall, repeat has normalized and is 0.7. Patient will need PT/OT therapy evaluation along with case management/social work consultation to discuss discharge planning in the event patient may require rehab on discharge Patient is medically stable for surgical intervention with orthopedic services and we will continue to follow with orthopedics during hospitalization. Thank you kindly for this consultation The impression and plan of care has been dictated by Jennifer Brady, nurse practitioner as directed. Dr. Sonia MD I have performed a history and examination and MDM of this patient, discussed the same with the dictator, and agree with the dictator's assessment and plan as written ,documented as a scribe. Based on total visit time, I have performed more than 50% of the visit. Any additional findings or plans will be noted. Past Medical History Past Medical History: CVA/TIA, Thyroid Disorder Additional Past Medical History / Comment(s): On disability due to PoT's disease migraines, pots, endometriosis, interstitial cystitis,kidney stones History of Any Multi-Drug Resistant Organisms: None Reported Past Surgical History: Appendectomy, Back Surgery, Bariatric Surgery, Cholecystectomy, Hysterectomy, Tonsillectomy Additional Past Surgical History / Comment(s): right oopherectomy Past Psychological History: Anxiety Smoking Status: Never smoker Past Alcohol Use History: Occasional Past Drug Use History: None Reported Medications and Allergies Home Medications Medication Instructions Recorded Confirmed Type Aspirin 81 mg PO HS 06/11/15 10/07/23 History Propranolol HCl 80 mg PO TID 05/05/17 10/07/23 History Topiramate [Topamax] 100 mg PO HS 08/25/17 10/07/23 History Cyanocobalamin [Vitamin B-12] 500 mcg PO DAILY 01/18/18 10/07/23 History Desvenlafaxine Succinate [Pristiq 25 mg PO DAILY 10/07/23 10/07/23 History ER] Desvenlafaxine Succinate [Pristiq 50 mg PO DAILY 10/07/23 10/07/23 History ER] Multivitamins, Thera [Multivitamin 1 tab PO DAILY 10/07/23 10/07/23 History (formulary)] Ondansetron Odt [Zofran Odt] 4 mg PO QID PRN 10/07/23 10/07/23 History buPROPion HCL [buPROPion HCL XL] 300 mg PO DAILY 10/07/23 10/07/23 History clonazePAM 0.5 mg PO DAILY PRN 10/07/23 10/07/23 History traZODone HCL 150 mg PO HS 10/07/23 10/07/23 History Allergies Allergy/AdvReac Type Severity Reaction Status Date / Time adhesive tape Allergy Unknown Verified 10/07/23 07:03 metoclopramide HCl Allergy Unknown Verified 10/07/23 07:03 [From Reglan] promethazine HCl Allergy Unknown Verified 10/07/23 07:03 [From Phenergan] sulfamethoxazole Allergy Rash/Hives Verified 10/07/23 07:03 [From Bactrim] sumatriptan [From Imitrex] Allergy Unknown Verified 10/07/23 07:03 sumatriptan succinate Allergy Unknown Verified 10/07/23 07:03 [From Imitrex] trimethoprim [From Bactrim] Allergy Rash/Hives Verified 10/07/23 07:03 NSAIDS (Non-Steroidal AdvReac Pain, Verified 10/07/23 07:03 Anti-Inflamma Nausea & Vomiting prochlorperazine edisylate AdvReac Pain, Verified 10/07/23 07:03 [From Compazine] Nausea & Vomiting prochlorperazine maleate AdvReac Pain, Verified 10/07/23 07:03 [From Compazine] Nausea & Vomiting Physical Exam Vitals: Vital Signs Temp Pulse Pulse Resp BP BP Pulse Ox 10/07/23 09:00 83 18 101/70 100 10/07/23 05:00 69 18 106/67 100 10/07/23 02:32 66 18 101/73 100 10/07/23 00:48 97.7 F 70 18 97/64 99 Intake and Output 10/06/23 10/07/23 10/07/23 22:59 06:59 14:59 Other: Weight 74.843 kg Results CBC & Chem 7: 10/07/23 01:42 10/07/23 01:42 Labs: Abnormal Lab Results - Last 24 Hours (Table) 10/07/23 10/07/23 10/07/23 Range/Units 01:42 01:42 01:42 RBC 3.09 L (3.80-5.40) m/uL MCV 118.0 H (80.0-100.0) fL MCH 38.4 H (25.0-35.0) pg Macrocytosis Marked A Carbon Dioxide 20 L (22-30) mmol/L Plasma Lactic Acid Spike 2.6 H* (0.7-2.0) mmol/L AST 48 H (14-36) U/L Total Protein 6.2 L (6.3-8.2) g/dL
[2023-10-08 00:34] LABS: Basophils % (A) 0 %; Eosinophils % (A) 1 %; HCT 32.2 % (34.0-46.0); HGB 10.2 gm/dL (11.4-16.0); Hypochromasia Marked; Lymphocytes # (A) 0.8 k/uL (1.0-4.8); Lymphocytes % (A) 15 %; MCH 37.8 pg (25.0-35.0); MCHC 31.6 g/dL (31.0-37.0); MCV 119.5 fL (80.0-100.0); Mean Platelet Volume 10.5; Monocytes # (A) 0.3 k/uL (0-1.0); Monocytes % (A) 5 %; Neutrophils # (A) 4.4 k/uL (1.3-7.7); Neutrophils % (A) 79 %; Platelet Count 190 k/uL (150-450); Poikilocytosis Slight; RBC 2.69 m/uL (3.80-5.40); RDW 15.4 % (11.5-15.5); WBC 5.6 k/uL (3.8-10.6)
[2023-10-08 00:37] LABS: Macrocytosis Marked
[2023-10-08] MEDS: HYDROmorphone 1 MG/ML 1 ML SYRINGE IVP PRN ×8 (01:30→23:50)
[2023-10-08] MEDS: HYDROcodone/APAP 5-325MG 1 EACH TAB PO PRN ×5 (03:51→19:56)
[2023-10-08] MEDS: SODIUM CHLORIDE 0.9% 1,000 ML IV SCH ×4 (05:33→23:06)
[2023-10-08] MEDS: NON FORMULARY DRUG (Desvenlafaxine Succinate [Pristiq] 25 MG Tab.Er.24h) PO SCH (07:31)
[2023-10-08] MEDS: MULTIVITAMINS, THERA 1 EACH TAB PO SCH (07:41)
[2023-10-08] MEDS: CYANOCOBALAMIN 500 MCG TAB PO SCH (07:41)
[2023-10-08] MEDS: buPROPion XL 300 MG TAB.ER.24H PO SCH (07:41)
[2023-10-08] MEDS: DESVENLAFAXINE SUCCINATE 50 MG TAB.ER.24H PO SCH (07:42)
[2023-10-08] MEDS: PROPRANOLOL 40 MG TAB PO SCH ×3 (07:42→19:56)
--- NOTE | 2023-10-08 09:07 | P.PN ---
Progress Note - Text Progress Note Date: 10/08/23 Orthopedics: History of present illness: Patient is a very pleasant 43-year-old female who is seen and examined at the bedside for follow-up evaluation for her right lower extremity. She is status post open reduction internal fixation of right distal fibular fracture with intramedullary wilda fixation for her right distal tibial comminuted and displaced tibial shaft fracture status post fall. She does have significant pain with her right lower extremity. She has Her dressing intact postoperatively. She does have bloody drainage near her right lateral ankle. She is utilizing elevation and ice for some comfort. She continues require IV and oral medications for pain control. She does not feel her pain is adequately controlled where she could be discharged home. Her Mansfield cath remains intact. We'll plan to discontinue his Mansfield catheter today. She'll plan to work with physical therapy to increase her mobility and ambulation. She is nonweightbearing on the right lower extremity. She does not have a walker at home but will plan to prescribe a walker for her at the time of discharge. She is being seen and examined by medicine for her other medical diagnoses Physical Exam: Patient is awake, alert, and oriented 3 Vital signs stable Good chest excursion with deep inspiration and expiration Evidence of some saturated blood over the right lateral malleolus Dressing is removed and reapplied during physical examination with Adaptic, nonstick, ABDs, and Shay wrap Surgical incision sites do not show any obvious sign of infection, no purulent discharge Mild generalized swelling of the right lower extremity Evidence of some mild leading at the surgical site at the right lateral malleolus Neurovascularly intact right lower extremity No pain with palpation over the right thigh or knee Patient is able to wiggle toes of the right foot without difficulty Assessment: Status post open reduction internal fixation of right distal fibular fracture with intramedullary wilda fixation for her right distal tibial comminuted and displaced tibial shaft fracture Status post fall Right lower extremity leg pain Proximal fibular fracture Status post loss of consciousness Syncopal episode most likely due to trazodone effect History of CVA/TIA Thyroid disorder Plan: 1. Patient will continue strict nonweightbearing on the right lower extremity. 2. Keep dressing intact over the right lower extremity; keep dressing clean and dry 3. Patient may utilize walker to aid in ambulation; prescription is written, signed, provided to case management to obtain a walker for home use 4. Patient may use ice is encouraged to elevate the right lower extremity for comfort support as needed 5. Discontinue Mansfield catheter 6. Patient has had difficulty with pain control postoperatively and is requiring oral and IV medications. We will begin to wean the patient off of IV medications in anticipation for discharge home tomorrow. 7.MAPS has been reviewed today, elevated 2022, with an Overall Overdose Risk Score of 810. An "Opiod Start Talking" Form has been signed and placed in the patient's chart. A prescription has been written for hydrocodone 5 mg/325 mg, 1 tab, every 4 hours as needed for acute pain, dispense #42. Excision is sent to the [facility] pharmacy located in [facility] per request of the patient. She may resume her other previous he prescribed home medications. 8. The patient has improvement in her pain is better controlled oral medication, we'll plan for discharge home as early as tomorrow, 10/09/2023. Patient may follow-up with Kartik Márquez PA-C or Dr. Álvaro Salas at [facility] in 1 week for further evaluation on 10/15/2023.
--- NOTE | 2023-10-08 10:43 | FL ---
Intraoperative/procedural fluoroscopic services were provided. Total fluoroscopy time is 2 minutes 36 seconds with a total of 4 submitted images to PACS. Please see the operative/procedural note for fur ther details. DAP: [id number] mGym2
[2023-10-08 11:53] LABS: BUN/Creat Ratio 9.75 Ratio (12.00-20.00); Blood Urea Nitrogen 7.8 mg/dL (9.0-27.0); Calcium 8.4 mg/dL (8.7-10.3); Carbon Dioxide 23.1 mmol/L (21.6-31.8); Chloride 107 mmol/L (96-109); Glucose 113 mg/dL (70-110); Potassium 4.2 mmol/L (3.5-5.5); Sodium 138 mmol/L (135-145)
[2023-10-08] MEDS: SENNOSIDES-DOCUSATE SODIUM 1 EACH TAB PO SCH (19:55)
[2023-10-08] MEDS: TOPIRAMATE 100 MG TAB PO SCH (19:56)
[2023-10-08] MEDS: ASPIRIN 81 MG PO SCH (19:56)
[2023-10-09] MEDS: HYDROcodone/APAP 5-325MG 1 EACH TAB PO PRN ×2 (01:11→07:43)
[2023-10-09] MEDS: SODIUM CHLORIDE 0.9% 1,000 ML IV SCH ×2 (01:12→09:46)
[2023-10-09] MEDS: HYDROmorphone 1 MG/ML 1 ML SYRINGE IVP PRN ×6 (02:48→23:48)
--- NOTE | 2023-10-09 03:37 | P.PN ---
Subjective Progress Note Date: 10/08/23 - Reason for Consult Consult date: 10/07/23 Medical management, medical clearance, right leg and ankle fracture - History of Present Illness This is a pleasant 43-year-old female who presented to the emergency department via EMS with severe right leg pain and difficulty in ambulation. Patient follows with Dr. Brian Gaston in the outpatient setting with a past medical history of CVA/TIA, thyroid disorder, Pots disease, migraines, endometriosis, interstitial cystitis with previous kidney stones, anxiety. Patient was admitted to orthopedics as patient was found to have a comminuted fracture of the distal tibia diaphysis with displacement, oblique comminuted fracture of the proximal fibular metadiaphysis and medicine was consulted for medical clearance as patient was noted to have an episode of syncope with fall. Patient reports has been taking trazodone for sleep at night and recently had an increased dose and was up at night and felt slightly dizzy and does not recall falling and had a syncopal event and woke up with severe right lower extremity pain. EKG showed sinus rhythm with heart rate of 69 beats for minute, labs with a white count of 5.0, hemoglobin 11.9, platelets 243, sodium 138, potassium 4.3, BUN 13, creatinine 0.81, initial plasma lactic acid was 2.6 and reflux this morning was within normal limits and negative, magnesium 2.3, troponin 0.016 10/08/2023 Patient is seen in follow-up this morning status post open reduction internal fixation of the right distal fibular fracture with intramedullary wilda fixation of her right distal tibial comminuted displaced tibial fracture postop day 1 reports to feeling well other than having some issues with pain control. Per nursing staff patient continues to request IV Dilaudid and oral medications have been added and adjusted and discuss with patient about limiting IV narcotic use. Patient has been up and working with physical therapy today and reports will be going home with home care. Case management following arranging for walker and discharge. Patient is afebrile reports to having some nausea earlier today although improved and will add Protonix. Also recommend to initiate incentive spirometer use and encouraged to use at least 10 times every hour. Patient is afebrile with no reported chest pain or shortness of breath and sitting up in bed on room air with oxygen saturations over 90%. Review of systems: Constitutional: No reports of fatigue, fever, or chills Cardiovascular: No reports of chest pain or palpitations Respiratory: No reports of shortness of breath or cough GI: reports of occasional nausea, no vomiting, or diarrhea, reports some mild indigestion and reports has been ongoing in the outpatient setting : No reports of dysuria or retention Neurovascular: reports of generalized weakness and continued right lower extremity pain All medications have been reviewed PHYSICAL EXAMINATION: GENERAL: The patient is alert and oriented x4, Well developed, well nourished. HEENT: Pupils are round and equally reacting to light. EOMI. no scleral icterus. No conjunctival pallor. Normocephalic, atraumatic. No pharyngeal erythema. No thyromegaly. CARDIOVASCULAR: S1 and S2 muffled PULMONARY: diminished breath sounds bilaterally otherwise clear to auscultation with no wheezing or rhonchi noted. ABDOMEN: soft. Nontender on exam. non-distended, normoactive bowel sounds. No palpable organomegaly. MUSCULOSKELETAL: No joint swelling or deformity. Right lower extremity status post ORIF and dressing has some dried bloody discharge noted with positive Refill less than 3 seconds and positive pulses noted EXTREMITIES: No cyanosis, clubbing, or pedal edema. tenderness on light palpation of the right lower extremity NEUROLOGICAL: Gross neurological examination did not reveal any focal deficits. Diffuse weakness SKIN: No rashes. Assessment: Severe right lower extremity pain secondary to fall with acute traumatic comminuted distal tibial fracture with displacement as well as proximal fibula fracture , postop day #1 status post ORIF of right distal fibular fracture with intramedullary wilda fixation for the right distal tibial comminuted and displaced tibial shaft fracture Syncopal episode, likely due to trazodone effect Lactic acidosis, present on admission likely secondary to fall with syncope, resolved History of postural orthostatic tachycardia syndrome History of CVA/TIA History of hypothyroidism History of migraines History of interstitial cystitis History of kidney stones GI prophylaxis DVT prophylaxis Full code Plan: Recommend to continue with current medications and management per orthopedic services. Labs reviewed and within normal limits Continue with pain management per orthopedics along with DVT prophylaxis. Pain medications being adjusted including adding oral medications and encourage limiting IV narcotic use and this was discussed with patient as well Home medications reviewed and resumed as appropriate Will add Protonix Recommend incentive spirometer and encouraged to use at least 10 times every hour while awake Patient was evaluated by PT/OT therapy along with case management/social work consultation and arranging for walker and will be going home with outpatient rehab. Patient reports has a roommate that will be able to assist with light duty Discussion of possible discharge planning in the next 24 hours to home with home care once pain is better managed We will continue to follow with orthopedics during hospitalization. Thank you kindly for this consultation. The impression and plan of care has been dictated by Jennifer Brady, nurse practitioner as directed. Dr. Sonia MD I have performed a history and examination and MDM of this patient, discussed the same with the dictator, and agree with the dictator's assessment and plan as written ,documented as a scribe. Based on total visit time, I have performed more than 50% of the visit. Any additional findings or plans will be noted. Objective - Vital Signs Vital signs: Vital Signs Temp 98.8 F 10/09/23 01:17 Pulse 78 10/09/23 01:17 Resp 18 10/09/23 01:17 BP 91/61 10/09/23 01:17 Pulse Ox 98 10/09/23 01:17 FiO2 Intake & Output 10/08/23 10/08/23 10/09/23 06:59 18:59 06:59 Intake Total 600 Output Total 1000 1200 Balance -400 -1200 Weight 74.843 kg Intake: IV 600 Output: Urine 850 1200 Estimated Blood Loss 150 Other: Voiding Method Indwelling Catheter Indwelling Catheter Bedside Commode - Labs CBC & Chem 7: 10/07/23 23:09 10/08/23 05:53 Labs: Abnormal Lab Results - Last 24 Hours (Table) 10/08/23 Range/Units 05:53 BUN 7.8 L (9.0-27.0) mg/dL BUN/Creatinine Ratio 9.75 L (12.00-20.00) Ratio Glucose 113 H (70-110) mg/dL Calcium 8.4 L (8.7-10.3) mg/dL
[2023-10-09] MEDS: PANTOPRAZOLE 40 MG TABLET PO SCH (05:58)
[2023-10-09] MEDS: MULTIVITAMINS, THERA 1 EACH TAB PO SCH (07:45)
[2023-10-09] MEDS: buPROPion XL 300 MG TAB.ER.24H PO SCH (07:45)
[2023-10-09] MEDS: CYANOCOBALAMIN 500 MCG TAB PO SCH (07:45)
[2023-10-09] MEDS: DESVENLAFAXINE SUCCINATE 50 MG TAB.ER.24H PO SCH (07:46)
[2023-10-09] MEDS: PROPRANOLOL 40 MG TAB PO SCH ×3 (07:51→21:37)
--- NOTE | 2023-10-09 09:12 | P.PN ---
Progress Note - Text Progress Note Date: 10/09/23 Postoperative day #2 Patient is seen and examined today at bedside. She is here in the hallway with physical therapy. She had great difficulty using her walker and full assist to try to do stairs. She still requiring IV pain medication. The patient has some pain around the surgical site as expected. Pain is being controlled with medication. She denies any new complaints. Denies any nausea vomiting. Physical Exam Afebrile with stable vital signs Abdomen is soft nontender. Chest has good excursion deep and space expiration The incision site is clean dry and intact. No erythema there is no purulence. Her leg has some diffuse swelling but there is no significant tension. There is no active drainage. Her compartments are soft Extremities have not had neurologic change from prior to surgery. She has intact dorsal flexion plantarflexion flexion , knee flexion and extension and ankle flexion and extension intact though these are all sore for her Calves and thighs were soft nontender without evidence of DVT. Assessment/Plan Postoperative day #2 status post intramedullary rodding of the right tibia distal shaft fracture due to traumatic injury Patient is progressing somewhat slowly as from the surgery in terms of her mobility and pain control. She still requiring IV pain medications and we will increase the oral medication slightly to see if we she is able to wean from the IV medication. She does not have significant support at home and is not yet safe with her mobility on her own. I do not think he would space a for her to return home yet. I think that she needs further strengthening, pain control and safety with her mobilization before she can return home. Hopefully tomorrow. We will continue to increase the patient's mobilization with therapy. We will continue pain control with oral or IV medications. We'll continue to follow patient closely.
[2023-10-09] MEDS: NON FORMULARY DRUG (Desvenlafaxine Succinate [Pristiq] 25 MG Tab.Er.24h) PO SCH (10:49)
[2023-10-09] MEDS: HYDROcodone/APAP 7.5-325MG 1 EACH TAB PO PRN ×3 (12:26→21:37)
[2023-10-09] MEDS: TOPIRAMATE 100 MG TAB PO SCH (21:37)
[2023-10-09] MEDS: SENNOSIDES-DOCUSATE SODIUM 1 EACH TAB PO SCH (21:37)
[2023-10-09] MEDS: ASPIRIN 81 MG PO SCH (21:37)
--- NOTE | 2023-10-09 23:59 | P.PN ---
Subjective Progress Note Date: 10/09/23 This is a pleasant 43-year-old female who presented to the emergency department via EMS with severe right leg pain and difficulty in ambulation. Patient follows with Dr. Brian Gaston in the outpatient setting with a past medical history of CVA/TIA, thyroid disorder, Pots disease, migraines, endometriosis, interstitial cystitis with previous kidney stones, anxiety. Patient was admitted to orthopedics as patient was found to have a comminuted fracture of the distal tibia diaphysis with displacement, oblique comminuted fracture of the proximal fibular metadiaphysis and medicine was consulted for medical clearance as patient was noted to have an episode of syncope with fall. Patient reports has been taking trazodone for sleep at night and recently had an increased dose and was up at night and felt slightly dizzy and does not recall falling and had a syncopal event and woke up with severe right lower extremity pain. EKG showed sinus rhythm with heart rate of 69 beats for minute, labs with a white count of 5.0, hemoglobin 11.9, platelets 243, sodium 138, potassium 4.3, BUN 13, creatinine 0.81, initial plasma lactic acid was 2.6 and reflux this morning was within normal limits and negative, magnesium 2.3, troponin 0.016 10/08/2023 Patient is seen in follow-up this morning status post open reduction internal fixation of the right distal fibular fracture with intramedullary widla fixation of her right distal tibial comminuted displaced tibial fracture postop day 1 reports to feeling well other than having some issues with pain control. Per nursing staff patient continues to request IV Dilaudid and oral medications have been added and adjusted and discuss with patient about limiting IV narcotic use. Patient has been up and working with physical therapy today and reports will be going home with home care. Case management following arranging for walker and discharge. Patient is afebrile reports to having some nausea earlier today although improved and will add Protonix. Also recommend to initiate incentive spirometer use and encouraged to use at least 10 times every hour. Patient is afebrile with no reported chest pain or shortness of breath and sitting up in bed on room air with oxygen saturations over 90%. 10/09/2023 Patient is postoperative day 2. Intramedullary rodding of the right tibia distal shaft fracture due to traumatic injury. Patient is currently resting in bed. Awake alert and oriented x 3. Patient was able to work with physical therapy with assistance. Still requiring IV pain medications. Denies any chest pain or shortness of breath. No nausea vomiting or abdominal pain or diarrhea. No cough or sputum production. Laboratory data reviewed. Review of systems: Constitutional: No reports of fatigue, fever, or chills Cardiovascular: No reports of chest pain or palpitations Respiratory: No reports of shortness of breath or cough GI: reports of occasional nausea, no vomiting, or diarrhea, reports some mild indigestion and reports has been ongoing in the outpatient setting : No reports of dysuria or retention Neurovascular: reports of generalized weakness and continued right lower extremity pain All medications have been reviewed PHYSICAL EXAMINATION: GENERAL: The patient is alert and oriented x4, Well developed, well nourished. HEENT: Pupils are round and equally reacting to light. EOMI. no scleral icterus. No conjunctival pallor. Normocephalic, atraumatic. No pharyngeal erythema. No thyromegaly. CARDIOVASCULAR: S1 and S2 muffled PULMONARY: diminished breath sounds bilaterally otherwise clear to auscultation with no wheezing or rhonchi noted. ABDOMEN: soft. Nontender on exam. non-distended, normoactive bowel sounds. No palpable organomegaly. MUSCULOSKELETAL: No joint swelling or deformity. Right lower extremity status post ORIF and dressing has some dried bloody discharge noted with positive Refi ll less than 3 seconds and positive pulses noted EXTREMITIES: No cyanosis, clubbing, or pedal edema. tenderness on light palpation of the right lower extremity NEUROLOGICAL: Gross neurological examination did not reveal any focal deficits. Diffuse weakness SKIN: No rashes. Assessment: Severe right lower extremity pain secondary to fall with acute traumatic comminuted distal tibial fracture with displacement as well as proximal fibula fracture , postop day #1 status post ORIF of right distal fibular fracture with intramedullary wilda fixation for the right distal tibial comminuted and displaced tibial shaft fracture Syncopal episode, likely due to trazodone effect Lactic acidosis, present on admission likely secondary to fall with syncope, resolved History of postural orthostatic tachycardia syndrome History of CVA/TIA History of hypothyroidism History of migraines History of interstitial cystitis History of kidney stones GI prophylaxis DVT prophylaxis. on SCDs Full code Plan: Recommend to continue with current medications and management per orthopedic services. Labs reviewed and within normal limits Continue with pain management per orthopedics along with DVT prophylaxis. Pain medications being adjusted including adding oral medications and encourage limiting IV narcotic use and this was discussed with patient as well Home medications reviewed and resumed as appropriate Recommend incentive spirometer and encouraged to use at least 10 times every hour while awake Patient was evaluated by PT/OT therapy along with case management/social work consultation and arranging for walker and will be going home with outpatient rehab. Patient reports has a roommate that will be able to assist with light duty Discussion of possible discharge planning in the next 24 hours to home with home care once pain is better managed We will continue to follow with orthopedics during hospitalization. Thank you kindly for this consultation. Objective - Vital Signs Vital signs: Vital Signs Temp 98.9 F 10/09/23 14:00 Pulse 83 10/09/23 14:00 Resp 16 10/09/23 14:00 BP 90/61 10/09/23 14:00 Pulse Ox 97 10/09/23 14:00 FiO2 Intake & Output 10/08/23 10/09/23 10/09/23 18:59 06:59 18:59 Output Total 1200 600 Balance -1200 -600 Output: Urine 1200 600 Other: Voiding Method Indwelling Catheter Bedside Commode Bedside Commode # Voids 3 1 - Labs CBC & Chem 7: 10/07/23 23:09 10/08/23 05:53 Labs: Abnormal Lab Results - Last 24 Hours (Table) 10/08/23 Range/Units 05:53 RBC Folate 855 H (280 - 791) ng/mL
[2023-10-10] MEDS: HYDROcodone/APAP 7.5-325MG 1 EACH TAB PO PRN ×5 (02:08→20:28)
[2023-10-10] MEDS: SODIUM CHLORIDE 0.9% 1,000 ML IV SCH ×2 (02:57→17:41)
[2023-10-10] MEDS: PANTOPRAZOLE 40 MG TABLET PO SCH (05:57)
[2023-10-10] MEDS: NON FORMULARY DRUG (Desvenlafaxine Succinate [Pristiq] 25 MG Tab.Er.24h) PO SCH (08:28)
[2023-10-10] MEDS: PROPRANOLOL 40 MG TAB PO SCH ×3 (08:29→22:54)
[2023-10-10] MEDS: buPROPion XL 300 MG TAB.ER.24H PO SCH (08:29)
[2023-10-10] MEDS: MULTIVITAMINS, THERA 1 EACH TAB PO SCH (08:29)
[2023-10-10] MEDS: DESVENLAFAXINE SUCCINATE 50 MG TAB.ER.24H PO SCH (08:29)
[2023-10-10] MEDS: CYANOCOBALAMIN 500 MCG TAB PO SCH (08:29)
[2023-10-10] MEDS: HYDROmorphone 1 MG/ML 1 ML SYRINGE IVP PRN (08:39)
[2023-10-10 09:28] LABS: BUN/Creat Ratio 7.62 Ratio (12.00-20.00); Blood Urea Nitrogen 6.1 mg/dL (9.0-27.0); Calcium 8.5 mg/dL (8.7-10.3); Carbon Dioxide 22.3 mmol/L (21.6-31.8); Chloride 110 mmol/L (96-109); Glucose 108 mg/dL (70-110); Potassium 4.3 mmol/L (3.5-5.5); Sodium 139 mmol/L (135-145)
--- NOTE | 2023-10-10 10:40 | P.PN ---
Subjective Progress Note Date: 10/10/23 Principal diagnosis: Distal tibial shaft fracture right leg. Status post intramedullary nail right tibia. This is a pleasant 43-year-old female who is postop day #3, status post in tramedullary nail right tibia. The patient is still having pain management issues. She continues on IV pain medication. She has been up with some difficulty. Objective - Vital Signs Vital signs: Vital Signs Temp 98.2 F 10/10/23 08:00 Pulse 76 10/10/23 08:00 Resp 15 10/10/23 08:00 BP 93/59 10/10/23 08:00 Pulse Ox 96 10/10/23 08:00 FiO2 Intake & Output 10/09/23 10/10/23 10/10/23 18:59 06:59 18:59 Other: Voiding Method Bedside Commode Toilet # Voids 1 2 - Exam This is a pleasant 43-year-old female in no acute distress. She is alert and oriented 3. Exam of the right lower extremity reveals the Shay wrap intact. There is some swelling to the foot. She does have foot and ankle motion without difficulty. Neurovascular status to the lower extremity is intact. - Labs CBC & Chem 7: 10/07/23 23:09 10/10/23 05:00 Labs: Abnormal Lab Results - Last 24 Hours (Table) 10/08/23 10/10/23 Range/Units 05:53 05:00 Chloride 110 H (96-109) mmol/L BUN 6.1 L (9.0-27.0) mg/dL BUN/Creatinine Ratio 7.62 L (12.00-20.00) Ratio Calcium 8.5 L (8.7-10.3) mg/dL RBC Folate 855 H (280 - 791) ng/mL Assessment and Plan (1) Maisonneuve fracture of right lower extremity Current Visit: Yes Status: Acute Code(s): S82.861A - DISPLACED MAISONNEUVE'S FRACTURE OF RIGHT LEG, INIT SNOMED Code(s): 94119326 (2) Right tibial fracture Current Visit: Yes Status: Acute Code(s): S82.201A - UNSP FRACTURE OF SHAFT OF RIGHT TIBIA, INIT FOR CLOS FX SNOMED Code(s): 70788521 (3) Syncope Current Visit: Yes Status: Acute Code(s): R55 - SYNCOPE AND COLLAPSE SNOMED Code(s): 307908697 Plan: Goal findings are discussed with the patient. We'll try to get her off of the IV pain medication today. We'll plan on discharged to home tomorrow. The patient is seen and examined. I agree with the above dictation. Hopefully she'll be able to do well with orals only and improve her mobility. She still not safe try to mobilize on her own but I think that she will make further gains back tomorrow for discharge home tomorrow. If she is able to mobilize well later this afternoon and then the can be okay for her to be discharged home
[2023-10-10] MEDS: hydrOXYzine pamoate 25 MG CAP PO PRN ×2 (14:38→20:30)
[2023-10-10] MEDS: ASPIRIN 81 MG PO SCH (20:30)
[2023-10-10] MEDS: SENNOSIDES-DOCUSATE SODIUM 1 EACH TAB PO SCH (20:30)
[2023-10-10] MEDS: TOPIRAMATE 100 MG TAB PO SCH (20:31)
--- NOTE | 2023-10-10 22:28 | P.PN ---
Subjective Progress Note Date: 10/10/23 This is a pleasant 43-year-old female who presented to the emergency department via EMS with severe right leg pain and difficulty in ambulation. Patient follows with Dr. Brian Gaston in the outpatient setting with a past medical history of CVA/TIA, thyroid disorder, Pots disease, migraines, endometriosis, interstitial cystitis with previous kidney stones, anxiety. Patient was admitted to orthopedics as patient was found to have a comminuted fracture of the distal tibia diaphysis with displacement, oblique comminuted fracture of the proximal fibular metadiaphysis and medicine was consulted for medical clearance as patient was noted to have an episode of syncope with fall. Patient reports has been taking trazodone for sleep at night and recently had an increased dose and was up at night and felt slightly dizzy and does not recall falling and had a syncopal event and woke up with severe right lower extremity pain. EKG showed sinus rhythm with heart rate of 69 beats for minute, labs with a white count of 5.0, hemoglobin 11.9, platelets 243, sodium 138, potassium 4.3, BUN 13, creatinine 0.81, initial plasma lactic acid was 2.6 and reflux this morning was within normal limits and negative, magnesium 2.3, troponin 0.016 10/08/2023 Patient is seen in follow-up this morning status post open reduction internal fixation of the right distal fibular fracture with intramedullary wilda fixation of her right distal tibial comminuted displaced tibial fracture postop day 1 reports to feeling well other than having some issues with pain control. Per nursing staff patient continues to request IV Dilaudid and oral medications have been added and adjusted and discuss with patient about limiting IV narcotic use. Patient has been up and working with physical therapy today and reports will be going home with home care. Case management following arranging for walker and discharge. Patient is afebrile reports to having some nausea earlier today although improved and will add Protonix. Also recommend to initiate incentive spirometer use and encouraged to use at least 10 times every hour. Patient is afebrile with no reported chest pain or shortness of breath and sitting up in bed on room air with oxygen saturations over 90%. 10/09/2023 Patient is postoperative day 2. Intramedullary rodding of the right tibia distal shaft fracture due to traumatic injury. Patient is currently resting in bed. Awake alert and oriented x 3. Patient was able to work with physical therapy with assistance. Still requiring IV pain medications. Denies any chest pain or shortness of breath. No nausea vomiting or abdominal pain or diarrhea. No cough or sputum production. Laboratory data reviewed. 10/10/2023 Patient is currently resting in the bed. Awake alert and oriented x 3. Postoperative day 3 Complains of leg pain and also lower back pain. Continued on IV pain medications overnight and changed to p.o. today. Patient is also having pillow under her right lower extremity. Swelling is proving. No complaints of chest pain or shortness of breath. Patient also tolerating oral diet. Laboratory data showed sodium 139 potassium 4.3 chloride 110 bicarb is 22.3 BUN 6.1 creatinine 0.8. Blood sugar is 108 and calcium 8.5. PT OT is following anticipate discharge in the next 24 hours. Review of systems: Constitutional: No reports of fatigue, fever, or chills Cardiovascular: No reports of chest pain or palpitations Respiratory: No reports of shortness of breath or cough GI: reports of occasional nausea, no vomiting, or diarrhea, reports some mild indigestion and reports has been ongoing in the outpatient setting : No reports of dysuria or retention Neurovascular: reports of generalized weakness and continued right lower extremity pain All medications have been reviewed PHYSICAL EXAMINATION: GENERAL: The patient is alert and oriented x4, Well developed, well nourished. HEENT: Pupils are round and equally reacting to light. EOMI. no scleral icterus. No conjunctival pallor. Normocephalic, atraumatic. No pharyngeal erythema. No thyromegaly. CARDIOVASCULAR: S1 and S2 muffled PULMONARY: diminished breath sounds bilaterally otherwise clear to auscultation with no wheezing or rhonchi noted. ABDOMEN: soft. Nontender on exam. non-distended, normoactive bowel sounds. No palpable organomegaly. MUSCULOSKELETAL: No joint swelling or deformity. Right lower extremity status post ORIF and dressing has some dried bloody discharge noted with positive Refill less than 3 seconds and positive pulses noted EXTREMITIES: No cyanosis, clubbing, or pedal edema. tenderness on light palpation of the right lower extremity NEUROLOGICAL: Gross neurological examination did not reveal any focal deficits. Diffuse weakness SKIN: No rashes. Assessment: Severe right lower extremity pain secondary to fall with acute traumatic comminuted distal tibial fracture with displacement as well as proximal fibula fracture , postop day #1 status post ORIF of right distal fibular fracture with intramedullary widla fixation for the right distal tibial comminuted and displaced tibial shaft fracture Syncopal episode, likely due to trazodone effect Lactic acidosis, present on admission likely secondary to fall with syncope, resolved History of postural orthostatic tachycardia syndrome History of CVA/TIA History of hypothyroidism History of migraines History of interstitial cystitis History of kidney stones GI prophylaxis DVT prophylaxis. on SCDs Full code Plan: Recommend to continue with current medications and management per orthopedic services. Labs reviewed and within normal limits Continue with pain management per orthopedics along with DVT prophylaxis. Pain medications being adjusted including adding oral medications and encourage limiting IV narcotic use and this was discussed with patient as well Home medications reviewed and resumed as appropriate Recommend incentive spirometer and encouraged to use at least 10 times every hour while awake Patient was evaluated by PT/OT therapy along with case management/social work consultation and arranging for walker and will be going home with outpatient rehab. Patient reports has a roommate that will be able to assist with light duty Discussion of possible discharge planning in the next 24 hours to home with home care once pain is better managed We will continue to follow with orthopedics during hospitalization. Thank you kindly for this consultation. Objective - Vital Signs Vital signs: Vital Signs Temp 98.1 F 10/10/23 14:00 Pulse 82 10/10/23 14:00 Resp 16 10/10/23 14:00 BP 94/62 10/10/23 14:00 Pulse Ox 100 10/10/23 14:00 FiO2 Intake & Output 10/09/23 10/10/23 10/10/23 18:59 06:59 18:59 Other: Voiding Method Bedside Commode Toilet # Voids 1 2 3 - Labs CBC & Chem 7: 10/07/23 23:09 10/10/23 05:00 Labs: Abnormal Lab Results - Last 24 Hours (Table) 10/10/23 Range/Units 05:00 Chloride 110 H (96-109) mmol/L BUN 6.1 L (9.0-27.0) mg/dL BUN/Creatinine Ratio 7.62 L (12.00-20.00) Ratio Calcium 8.5 L (8.7-10.3) mg/dL
[2023-10-11] MEDS: HYDROcodone/APAP 7.5-325MG 1 EACH TAB PO PRN ×4 (00:36→14:32)
[2023-10-11] MEDS: PANTOPRAZOLE 40 MG TABLET PO SCH (06:06)
[2023-10-11] MEDS: hydrOXYzine pamoate 25 MG CAP PO PRN ×2 (06:06→12:51)
--- NOTE | 2023-10-11 08:51 | P.DS ---
Providers Date of admission: 10/07/23 02:24 Expected date of discharge: 10/11/23 Attending physician: Lolis Salas Consults: 10/07/23 02:38 Consult Physician Routine Consulting Provider: Ritchie Ring Consult Reason/Comments: [employer] Do you want consulting provider notified?: Yes Primary care physician: Darrin Torres - Discharge Diagnosis(es) (1) Hypothyroidism Current Visit: Yes Status: Acute (2) History of CVA (cerebrovascular accident) Current Visit: Yes Status: Acute (3) Closed fracture of head of right fibula Current Visit: Yes Status: Acute (4) Fall Current Visit: Yes Status: Acute (5) Right tibial fracture Current Visit: Yes Status: Acute (6) Syncope Current Visit: Yes Status: Acute Hospital Course: This is a pleasant 43-year-old female who presented with right distal tibial comminuted and displaced tibial shaft fracture and right proximal fibular fracture status post fall. She was admitted for further treatment and evaluation. She is status post open reduction internal fixation of right distal fibular fracture with intramedullary wilda fixation for her right distal tibial comminuted and displaced tibial shaft fracture. She had some difficulty with pain control postoperatively. Her symptoms have improved over the weekend. She does feel her symptoms are stable and pain is adequately controlled she could be cleared for discharge home today. She feels she is ready for discharge home. A prescription was signed and provided to case management for a walker. Patient has been provided with a walker. Patient will remain nonweightbearing on the right lower extremity. She should keep her dressing over the right lower extremity clean, dry, and intact. Condition on day of discharge stable. Patient will be discharged home. Patient was cleared preoperatively. Patient currently denies any nausea, vomiting, fever, or chills. Patient is eating and voiding freely without difficulty. She is passing gas but has not had a bowel movement. She denies any abdominal pain. MAPS has been previously reviewed. An "Opiod Start Talking" Form has been signed and placed in the patient's chart. A prescription has been written for hydrocodone 5 mg/325 mg, 1 tab, every 4 hours as needed for acute pain, dispense #42. Prescriptions were sent to the [facility] pharmacy located in [facility] per request of the patient. These have been picked up already. She may resume her other previous he prescribed home medications. She is also given a prescription for Senokot-S1 tab, twice a day, as need for constipation. Patient's other medical diagnoses include loss of consciousness or syncopal episode most likely due to trazodone effect, thyroid disorder, and history of CVA/TIA. Physical Exam on day of discharge: Patient is awake, alert, and oriented 3 Vital signs stable Good chest excursion with deep inspiration and expiration Dressing with Shay wrap remains clean, dry, and intact over the right lower extremity Mild generalized swelling of the right lower extremity Neurovascularly intact right lower extremity No pain with palpation over the right thigh or knee Patient is able to wiggle toes of the right foot without difficulty Procedures: Status post open reduction internal fixation of right distal fibular fracture with intramedullary wilda fixation for her right distal tibial comminuted and displaced tibial shaft fracture Patient Condition at Discharge: Good Plan - Discharge Summary Discharge Rx Participant: Yes New Discharge Prescriptions: New hydrOXYzine pamoate [Vistaril] 25 mg PO Q4-6H #30 capsule Sennosides-Docusate Sodium [Senokot-S] 1 tab PO BID PRN #60 tablet PRN Reason: Constipation HYDROcodone/APAP 5-325MG [Granada 5] 1 each PO Q4HR PRN #42 tab PRN Reason: Pain HYDROcodone/APAP 7.5-325MG [Granada 7.5-325] 1 tab PO Q4H PRN 7 Days #42 tab PRN Reason: Pain No Action Aspirin 81 mg PO HS Propranolol HCl 80 mg PO TID Topiramate [Topamax] 100 mg PO HS Cyanocobalamin [Vitamin B-12] 500 mcg PO DAILY Ondansetron Odt [Zofran Odt] 4 mg PO QID PRN PRN Reason: Nausea traZODone HCL 150 mg PO HS Desvenlafaxine Succinate [Pristiq ER] 50 mg PO DAILY clonazePAM 0.5 mg PO DAILY PRN PRN Reason: Anxiety Multivitamins, Thera [Multivitamin (formulary)] 1 tab PO DAILY buPROPion HCL [buPROPion HCL XL] 300 mg PO DAILY Desvenlafaxine Succinate [Pristiq ER] 25 mg PO DAILY Discharge Medication List Aspirin 81 mg PO HS 06/11/15 [History] Propranolol HCl 80 mg PO TID 05/05/17 [History] Topiramate [Topamax] 100 mg PO HS 08/25/17 [History] Cyanocobalamin [Vitamin B-12] 500 mcg PO DAILY 01/18/18 [History] Desvenlafaxine Succinate [Pristiq ER] 25 mg PO DAILY 10/07/23 [History] Desvenlafaxine Succinate [Pristiq ER] 50 mg PO DAILY 10/07/23 [History] Multivitamins, Thera [Multivitamin (formulary)] 1 tab PO DAILY 10/07/23 [History] Ondansetron Odt [Zofran Odt] 4 mg PO QID PRN 10/07/23 [History] buPROPion HCL [buPROPion HCL XL] 300 mg PO DAILY 10/07/23 [History] clonazePAM 0.5 mg PO DAILY PRN 10/07/23 [History] traZODone HCL 150 mg PO HS 10/07/23 [History] HYDROcodone/APAP 5-325MG [Granada 5] 1 each PO Q4HR PRN #42 tab 10/08/23 [Rx] HYDROcodone/APAP 7.5-325MG [Granada 7.5-325] 1 tab PO Q4H PRN 7 Days #42 tab 10/09/23 [Rx] hydrOXYzine pamoate [Vistaril] 25 mg PO Q4-6H #30 capsule 10/10/23 [Rx] Sennosides-Docusate Sodium [Senokot-S] 1 tab PO BID PRN #60 tablet 10/11/23 [Rx] Follow up Appointment(s)/Referral(s): [facility] [NON-STAFF] - As Needed (Walker) [facility], [NON-STAFF] - As Needed Darrin Torres DO [Primary Care Provider] - 1-2 days Kartik Márquez PAC [PHYSICIAN GAS SCRUBBER OPERATOR] - 10/15/23 (Patient may follow-up with Kartik Márquez PA-C or Dr. Álvaro Salas at [facility] on 10/15/2023 following discharge. ) Activity/Diet/Wound Care/Special Instructions: 1. Patient will continue strict nonweightbearing on the right lower extremity. 2. Keep dressing intact over the right lower extremity; keep dressing clean and dry 3. Patient may utilize walker to aid in ambulation; prescription is written, signed, provided to case management to obtain a walker for home use 4. Patient may use ice is encouraged to elevate the right lower extremity for comfort support as needed 5. Take medications as prescribed Discharge Disposition: HOME SELF-CARE
[2023-10-11] MEDS: NON FORMULARY DRUG (Desvenlafaxine Succinate [Pristiq] 25 MG Tab.Er.24h) PO SCH (08:56)
[2023-10-11] MEDS: MULTIVITAMINS, THERA 1 EACH TAB PO SCH (10:33)
[2023-10-11] MEDS: CYANOCOBALAMIN 500 MCG TAB PO SCH (10:33)
[2023-10-11] MEDS: buPROPion XL 300 MG TAB.ER.24H PO SCH (10:33)
[2023-10-11] MEDS: DESVENLAFAXINE SUCCINATE 50 MG TAB.ER.24H PO SCH (10:34)
[2023-10-11] MEDS: PROPRANOLOL 40 MG TAB PO SCH (10:34)
[2023-10-11 13:34] VITALS: BP 138/76; PULSE 84; RESP 19; TEMP 98
--- NOTE | 2023-10-16 09:22 | P.PN ---
Subjective Progress Note Date: 10/11/23 - Reason for Consult Consult date: 10/07/23 Medical management, medical clearance, right leg and ankle fracture - History of Present Illness This is a pleasant 43-year-old female who presented to the emergency department via EMS with severe right leg pain and difficulty in ambulation. Patient follows with Dr. Brian Gaston in the outpatient setting with a past medical history of CVA/TIA, thyroid disorder, Pots disease, migraines, endometriosis, interstitial cystitis with previous kidney stones, anxiety. Patient was admitted to orthopedics as patient was found to have a comminuted fracture of the distal tibia diaphysis with displacement, oblique comminuted fracture of the proximal fibular metadiaphysis and medicine was consulted for medical clearance as patient was noted to have an episode of syncope with fall. Patient reports has been taking trazodone for sleep at night and recently had an increased dose and was up at night and felt slightly dizzy and does not recall falling and had a syncopal event and woke up with severe right lower extremity pain. EKG showed sinus rhythm with heart rate of 69 beats for minute, labs with a white count of 5.0, hemoglobin 11.9, platelets 243, sodium 138, potassium 4.3, BUN 13, creatinine 0.81, initial plasma lactic acid was 2.6 and reflux this morning was within normal limits and negative, magnesium 2.3, troponin 0.016 10/08/2023 Patient is seen in follow-up this morning status post open reduction internal fixation of the right distal fibular fracture with intramedullary wilda fixation of her right distal tibial comminuted displaced tibial fracture postop day 1 reports to feeling well other than having some issues with pain control. Per nursing staff patient continues to request IV Dilaudid and oral medications have been added and adjusted and discuss with patient about limiting IV narcotic use. Patient has been up and working with physical therapy today and reports will be going home with home care. Case management following arranging for walker and discharge. Patient is afebrile reports to having some nausea earlier today although improved and will add Protonix. Also recommend to initiate incentive spirometer use and encouraged to use at least 10 times every hour. Patient is afebrile with no reported chest pain or shortness of breath and sitting up in bed on room air with oxygen saturations over 90%. 10/09/2023 Patient is postoperative day 2. Intramedullary rodding of the right tibia distal shaft fracture due to traumatic injury. Patient is currently resting in bed. Awake alert and oriented x 3. Patient was able to work with physical therapy with assistance. Still requiring IV pain medications. Denies any chest pain or shortness of breath. No nausea vomiting or abdominal pain or diarrhea. No cough or sputum production. Laboratory data reviewed. 10/10/2023 Patient is currently resting in the bed. Awake alert and oriented x 3. Postoperative day 3 Complains of leg pain and also lower back pain. Continued on IV pain medications overnight and changed to p.o. today. Patient is also having pillow under her right lower extremity. Swelling is proving. No complaints of chest pain or shortness of breath. Patient also tolerating oral diet. Laboratory data showed sodium 139 potassium 4.3 chloride 110 bicarb is 22.3 BUN 6.1 creatinine 0.8. Blood sugar is 108 and calcium 8.5. PT OT is following anticipate discharge in the next 24 hours. 10/11/2023 She is seen in follow-up today scheduled for discharge with orthopedics. Paulino michelle reports her pain being better controlled and is scheduled to go home and has received a walker. Patient is currently afebrile with no reports of chest pain or shortness of breath. Patient denies nausea or vomiting and tolerating diet. Recommend adjusting the medications including trazodone and decrease the dose and follow-up with primary care provider on discharge. Patient verbalized understanding. Patient also instructed to take incentive spirometer home and continue using at least 10 times every hour while awake. Patient is medically stable for discharge today. Review of systems: Constitutional: No reports of fatigue, fever, or chills Cardiovascular: No reports of chest pain or palpitations Respiratory: No reports of shortness of breath or cough GI: reports of occasional nausea, no vomiting, or diarrhea, reports occasional indigestion and reports has been ongoing in the outpatient setting : No reports of dysuria or retention Neurovascular: reports of generalized weakness and continued right lower extremity pain that is improved All medications have been reviewed PHYSICAL EXAMINATION: GENERAL: The patient is alert and oriented x4, Well developed, well nourished. HEENT: Pupils are round and equally reacting to light. EOMI. no scleral icterus. No conjunctival pallor. Normocephalic, atraumatic. No pharyngeal erythema. No thyromegaly. CARDIOVASCULAR: S1 and S2 muffled PULMONARY: diminished breath sounds bilaterally otherwise clear to auscultation with no wheezing or rhonchi noted. ABDOMEN: soft. Nontender on exam. non-distended, normoactive bowel sounds. No palpable organomegaly. MUSCULOSKELETAL: No joint swelling or deformity. Right lower extremity status post ORIF and dressing is dry and intact. positive capillary Refill less than 3 seconds and positive pulses noted EXTREMITIES: No cyanosis, clubbing, or pedal edema. tenderness on light palpation of the right lower extremity NEUROLOGICAL: Gross neurological examination did not reveal any focal deficits. Diffuse weakness SKIN: No rashes. Assessment: Severe right lower extremity pain secondary to fall with acute traumatic comminuted distal tibial fracture with displacement as well as proximal fibula fracture status post ORIF of right distal fibular fracture with intramedullary wilda fixation for the right distal tibial comminuted and displaced tibial shaft fracture Syncopal episode, likely due to trazodone effect Lactic acidosis, present on admission likely secondary to fall with syncope, resolved History of postural orthostatic tachycardia syndrome History of CVA/TIA History of hypothyroidism History of migraines History of interstitial cystitis History of kidney stones GI prophylaxis DVT prophylaxis Full code Plan: Recommend to continue with current medications and management per orthopedic services. Labs reviewed and within normal limits Continue with pain management per orthopedics along with DVT prophylaxis. Pain medications adjusted per orthopedics and patient has not required IV pain medication Home medications reviewed and resumed as appropriate Continue Protonix Recommend incentive spirometer and encouraged to use at least 10 times every h our while awake. Encourage the patient a take home and continue using Patient was evaluated by PT/OT therapy along with case management/social work consultation and has received a walker and will be going home with outpatient rehab. Patient reports has a roommate that will be able to assist with light duty Patient is being discharged today. Patient is medically stable for discharge and instructed patient to follow-up with primary care provider We will continue to follow with orthopedics during hospitalization. Thank you kindly for this consultation. The impression and plan of care has been dictated by Jennifer Brady, nurse practitioner as directed. Dr. Neal MD I have performed a history and examination and MDM of this patient, discussed the same with the dictator, and agree with the dictator's assessment and plan as written ,documented as a scribe. Based on total visit time, I have performed more than 50% of the visit. Any additional findings or plans will be noted. Objective - Vital Signs Vital signs: Vital Signs Temp 98.1 F 10/11/23 07:44 Pulse 59 L 10/11/23 07:44 Resp 17 10/11/23 07:44 BP 88/60 10/11/23 08:59 Pulse Ox 98 10/11/23 07:44 FiO2 Intake & Output 10/10/23 10/11/23 10/11/23 18:59 06:59 18:59 Other: Voiding Method Toilet Toilet # Voids 2 1 - Labs CBC & Chem 7: 10/07/23 23:09 10/10/23 05:00
== END 2023-10-11 14:57 | disposition home or self-care (01) | DRG 493 ==
LOC: EC 00:46 → 5NMEDONC 02:24 → 4SSUR 18:44
PROVIDERS: ADMIT Orthopaedic Surgery Orthopaedic Surgery of the Spine; ATTEND Orthopaedic Surgery Orthopaedic Surgery of the Spine
PROC: 3E0T3BZ Introduction of Anesthetic Agent into Peripheral Nerves and Plexi, Percutaneous Approach (ICD-10-PCS; 2023-10-07)
PROC: 0QSG06Z Reposition Right Tibia with Intramedullary Internal Fixation Device, Open Approach (ICD-10-PCS; principal; 2023-10-07 10:15)
DX: S82.254A Nondisplaced comminuted fracture of shaft of right tibia, initial encounter for closed fracture (principal); E87.20 Acidosis, unspecified; R55 Syncope and collapse; S82.831A Other fracture of upper and lower end of right fibula, initial encounter for closed fracture; S82.861A Displaced Maisonneuve's fracture of right leg, initial encounter for closed fracture; W18.30XA Fall on same level, unspecified, initial encounter; G90.A Postural orthostatic tachycardia syndrome [POTS]; G89.29 Other chronic pain; E03.9 Hypothyroidism, unspecified; Z79.890 Hormone replacement therapy; F41.9 Anxiety disorder, unspecified; K59.00 Constipation, unspecified; N30.10 Interstitial cystitis (chronic) without hematuria; Z87.442 Personal history of urinary calculi; Z79.82 Long term (current) use of aspirin; Z79.899 Other long term (current) drug therapy; Z86.73 Personal history of transient ischemic attack (TIA), and cerebral infarction without residual deficits; Y92.009 Unspecified place in unspecified non-institutional (private) residence as the place of occurrence of the external cause; Z90.710 Acquired absence of both cervix and uterus
CPT/HCPCS: 27752; 36415; 80048; 80053; 81003; 82607; 82747; 83605; 83735; 84100; 84443; 84481; 84484; 85025; 85610; 85730; 88307; 88311; 93005; 96361; 96374; 96376; 99285

== ENCOUNTER 2025-02-14 13:17 | Observation (INO) | payer MEDICARE ==
--- NOTE | 2025-02-14 14:36 | ED ---
General Adult HPI - General Source: patient, RN notes reviewed, old records reviewed Mode of arrival: ambulatory Limitations: no limitations <Russel Meléndez - Last Filed: 02/14/25 14:50> <Hallie Mcqueen - Last Filed: 02/16/25 12:16> - General Chief complaint: Chest Pain Stated complaint: chest pain Time Seen by Provider: 02/14/25 13:58 - History of Present Illness Initial comments: Patient is a 44-year-old female presents emergency department complaint of chest pain. Describes as a pinching in the center of her chest. Lasts for fleeting moments. Started this morning. She states she has been under a lot of stress lately as a family member has as well as her cat. This is all rec ent for her. Denies any shortness of breath with it. Denies any recent obvious travel. Has no significant cardiac history but extensive family cardiac history. Does have a history of POTS. Denies any abdominal pain, nausea, vomiting, diaphoresis with the chest pain. States it comes and goes with no known palliative or provocative factors. States it lasts moments and disappears. Describes it as pinching that is substernal. Presents for further evaluation at this time. Currently chest pain-free. (Russel Meléndez) - Related Data Home Medications Medication Instructions Recorded Confirmed Aspirin 81 mg PO DAILY 06/11/15 02/14/25 Propranolol HCl 80 mg PO TID 05/05/17 02/14/25 Topiramate [Topamax] 100 mg PO HS 08/25/17 02/14/25 Desvenlafaxine Succinate [Pristiq 50 mg PO DAILY 10/07/23 02/14/25 ER] Desvenlafaxine Succinate [Pristiq] 25 mg PO DAILY 10/07/23 02/14/25 buPROPion HCL [buPROPion HCL XL] 300 mg PO DAILY 10/07/23 02/14/25 Cyanocobalamin [Vitamin B-12 1,000 mcg SQ Q30D 02/14/25 02/14/25 Injection] Eszopiclone [Lunesta] 3 mg PO HS PRN 02/14/25 02/14/25 Pantoprazole [Protonix] 40 mg PO DAILY 02/14/25 02/14/25 Allergies Allergy/AdvReac Type Severity Reaction Status Date / Time adhesive tape Allergy Unknown Verified 02/14/25 13:59 metoclopramide HCl Allergy Unknown Verified 02/14/25 13:59 [From Reglan] promethazine HCl Allergy Unknown Verified 02/14/25 13:59 [From Phenergan] sulfamethoxazole Allergy Rash/Hives Verified 02/14/25 13:59 [From Bactrim] sumatriptan [From Imitrex] Allergy Unknown Verified 02/14/25 13:59 sumatriptan succinate Allergy Unknown Verified 02/14/25 13:59 [From Imitrex] trimethoprim [From Bactrim] Allergy Rash/Hives Verified 02/14/25 13:59 NSAIDS (Non-Steroidal AdvReac Pain, Verified 02/14/25 13:59 Anti-Inflamma Nausea & Vomiting prochlorperazine edisylate AdvReac Pain, Verified 02/14/25 13:59 [From Compazine] Nausea & Vomiting prochlorperazine maleate AdvReac Pain, Verified 02/14/25 13:59 [From Compazine] Nausea & Vomiting Review of Systems ROS Other: All systems not noted in ROS Statement are negative. <Russel Meléndez - Last Filed: 02/14/25 14:50> ROS Other: All systems not noted in ROS Statement are negative. <Hallie Mcqueen - Last Filed: 02/16/25 12:16> ROS Statement: Those systems with pertinent positive or pertinent negative responses have been documented in the HPI. Review of Systems: CONST: Denies fever EYES: Denies blurry vision ENT: Denies nasal congestion C/V: Denies current chest pain RESP: Denies shortness of breath GI: Denies abdominal pain : Denies dysuria SKIN: Denies rash. MSK: Denies joint pain. NEURO: Denies headache (Russel Meléndez) Past Medical History Past Medical History: CVA/TIA, Thyroid Disorder Additional Past Medical History / Comment(s): migraines, pots, endometriosis, interstitial cystitis,kidney stones History of Any Multi-Drug Resistant Organisms: None Reported Past Surgical History: Appendectomy, Back Surgery, Bariatric Surgery, Cholecystectomy, Hysterectomy, Tonsillectomy Additional Past Surgical History / Comment(s): right oopherectomy Past Anesthesia/Blood Transfusion Reactions: No Reported Reaction Past Psychological History: Anxiety Smoking Status: Never smoker Past Alcohol Use History: Occasional Past Drug Use History: None Reported <Russel Meléndez - Last Filed: 02/14/25 14:50> General Exam Limitations: no limitations <Russel Meléndez - Last Filed: 02/14/25 14:50> - General Exam Comments Initial Comments: General: Appears in no acute distress.Appears anxious HEAD: Normal with no signs of head trauma. EYES: EOMI ENT: Hearing grossly intact, normal oropharynx. RESPIRATORY: Clear breath sounds bilaterally. No wheezes, rales, or rhonchi. C/V: Regular rate and rhythm. S1 and S2 auscultated, no edema, peripheral pulses 2+ and intact throughout ABD: Abd is soft, nontender, nondistended EXT: No obvious deformity SKIN: No rashes or lesions observed on exposed skin. NEURO: Alert and oriented x 4. (Russel Meléndez) Course Vital Signs 02/14/25 02/14/25 02/14/25 13:23 16:00 17:25 Temperature 98.1 F 98.0 F 98.1 F Pulse Rate 77 67 88 Pulse Rate [ Pulse Oximetery ] Respiratory 16 22 22 Rate Blood Pressure 113/81 123/84 120/80 Blood Pressure [Left Arm] O2 Sat by Pulse 95 99 98 Oximetry 02/14/25 02/14/25 02/14/25 18:57 19:53 21:25 Temperature 98.0 F 98.0 F Pulse Rate 82 80 Pulse Rate [ 87 Pulse Oximetery ] Respiratory 22 16 16 Rate Blood Pressure 101/63 120/92 Blood Pressure 131/86 [Left Arm] O2 Sat by Pulse 81 L 99 95 Oximetry Medical Decision Making - EKG Data -: EKG Interpreted by Me <Russel Meléndez - Last Filed: 02/14/25 14:50> - Lab Data Result diagrams: 02/14/25 15:27 02/14/25 15:27 <Hallie Mcqueen - Last Filed: 02/16/25 12:16> - Medical Decision Making Was pt. sent in by a medical professional or institution (, PA, VALIDATION ENGINEER, urgent care, hospital, or prison...) When possible be specific @ -No Did you speak to anyone other than the patient for history (EMS, parent, family, police, friend...)? What history was obtained from this source @ -No Did you review nursing and triage notes (agree or disagree)? Why? @ -I reviewed and agree with nursing and triage notes Were old charts reviewed (outside hosp., previous admission, EMS record, old EKG, old radiological studies, urgent care reports/EKG's, prison records)? Report findings @ -Today's EKG compared with EKG from October 2023. No significant acute change. Differential Diagnosis (chest pain, altered mental status, abdominal pain women, abdominal pain men, vaginal bleeding, weakness, fever, dyspnea, syncope, headache, dizziness, GI bleed, back pain, seizure, CVA, palpatations, mental health, musculoskeletal)? @ -Differential Chest Pain: Stable Angina, Unstable Angina, STEMI, NSTEMI Aortic Dissection, Pneumothorax, Musculoskeletal, Esophageal Spasm GERD, Cholecystitis, Pancreatitis, Zoster, this is not meant to be an all-inclusive list. EKG interpreted by me (3pts min.). @ -As above X-rays interpreted by me (1pt min.). @ -Pending CT interpreted by me (1pt min.). @ -None done U/S interpreted by me (1pt. min.). @ -None done What testing was considered but not performed or refused? (CT, X-rays, U/S, labs)? Why? @ -None What meds were considered but not given or refused? Why? @ -None Did you discuss the management of the patient with other professionals (professionals i.e. , PA, VALIDATION ENGINEER, lab, RT, psych nurse, social group worker, pot sander, teacher, global chief experience officer, telephonic nurse case manager)? Give summary @ -No Was smoking cessation discussed for >3mins.? @ -No Was critical care preformed (if so, how long)? @ -No Were there social determinants of health that impacted care today? How? (Homelessness, low income, unemployed, alcoholism, drug addiction, transportation, low edu. Level, literacy, decrease access to med. care, senior care, rehab)? @ -No Was there de-escalation of care discussed even if they declined (Discuss DNR or withdrawal of care, Hospice)? DNR status @ -No What co-morbidities impacted this encounter? (DM, HTN, Smoking, COPD, CAD, Cancer, CVA, ARF, Chemo, Hep., AIDS, mental health diagnosis, sleep apnea, morbid obesity)? @ -None Was patient admitted / discharged? Hospital course, mention meds given and route , prescriptions, significant lab abnormalities, going to OR and other pertinent info. @ -Based on patient's presentation physical exam, presents with pinching substernal chest pain. Somewhat atypical. Currently does not have the pain. She does appear extremely anxious and she endorses as such due to increased stress. Will obtain cardiopulmonary workup and provide the patient with a dose of Ativan for the anxiety. She will also receive IV fluids and aspirin. She was in agreement this plan. Vitals are within acceptable limits. EKG shows no signs of acute ischemia. Patient's workup is still pending at this time. Patiently signed out to oncoming emergency department physician, Dr. Sheree paula pending results of workup. Undiagnosed new problem with uncertain prognosis? @ -No Drug Therapy requiring intensive monitoring for toxicity (Heparin, Nitro, Insulin, Cardizem)? @ -No Were any procedures done? @ -No (Russel Meléndez) Was patient admitted / discharged? Hospital course, mention meds given and route, prescriptions, significant lab abnormalities, going to OR and other pertinent info. @ Admission- patient was signed out to myself pending completion of labs and imaging. Briefly she is a 44-year-old female past medical history of POTS presenting today for intermittent pinching chest pains in the center of her chest. As noted above the patient did appear very anxious and has increased stress with her brother passing away about 1 month ago and Of 21 years dying a few weeks ago. Patient has received Ativan but denies any improvement in symptoms. Patient will receive morphine and Zofran for further pain control. Chest x-ray reviewed by myself, I see no evidence of cardiomegaly, consolidations or pleural effusions I agree with radiologist interpretation of no acute process. On reassessment patient denied improvement in symptoms. Trialed SL nitro without relief. Labs were significant for mildly elevated lipase, negative troponin. Updated pt to these findings and discussed admission due to persisent chest pain. Pt ultimately agreeable with plan for admission. Trialed additional, larger dose of morphine for pain. IV fluids ordered. Pt discussed with ELSIE Ernst, who kindly accepted pt for admission. Undiagnosed new problem with uncertain prognosis? @ -No Drug Therapy requiring intensive monitoring for toxicity (Heparin, Nitro, Insulin, Cardizem)? @ -No Were any procedures done? @ -No Diagnosis/symptom? @ elevated lipase, possible pancreatitis, chest pain Acute, or Chronic, or Acute on Chronic? acute Uncomplicated (without systemic symptoms) or Complicated (systemic symptoms)? @ -complicated Side effects of treatment? @ -No Exacerbation, Progression, or Severe Exacerbation? @ -No Poses a threat to life or bodily function? How? (Chest pain, [place], [place], pneumonia, PE, COPD, DKA, ARF, appy, cholecystitis, CVA, Diverticulitis, Homicidal, Suicidal, threat to staff... and all critical care pts) @Potentially (Hallie Mcqueen) - Lab Data Lab Results 02/14/25 02/14/25 02/14/25 Range/Units 15:27 15:27 15:27 WBC 4.71 (4.50-10.00) 10*3/uL RBC 4.17 (4.10-5.20) 10*6/uL Hgb 13.4 (12.0-15.0) g/dL Hct 39.9 (37.2-46.3) % MCV 95.7 (80.0-97.0) fL MCH 32.1 H (27.0-32.0) pg MCHC 33.6 (32.0-37.0) g/dL Plt Count 181 (140-440) 10*3/uL MPV 10.6 (9.5-12.2) fL Immature Gran % (Auto) 0.2 % Neutrophils % 46.8 % Lymphocytes % 38.9 % Monocytes % 10.2 % Eosinophils % 2.8 % Basophils % 1.1 % Immature Gran # 0.01 (0.00-0.04) 10*3/uL Neutrophils # 2.21 (1.80-7.70) 10*3/uL Lymphocytes # 1.83 (0.90-5.00) 10*3/uL Monocytes # 0.48 (0.20-1.00) 10*3/uL Eosinophils # 0.13 (0.04-0.35) 10*3/uL Basophils # 0.05 (0.00-0.10) 10*3/uL PT 9.9 L (10.0-12.5) sec INR 0.9 (<1.2) APTT 21.8 L (22.0-30.0) sec D-Dimer 0.50 (<0.60) mg/L FEU Sodium 136 L (137-145) mmol/L Potassium 4.4 (3.5-5.1) mmol/L Chloride 106 (98-107) mmol/L Carbon Dioxide 21 L (22-30) mmol/L Anion Gap 9 mmol/L BUN 14 (7-17) mg/dL Creatinine 0.84 (0.52-1.04) mg/dL Est GFR (CKD-EPI)AfAm >90 (>60 ml/min/1.73 sqM) Est GFR (CKD-EPI)NonAf 84 (>60 ml/min/1.73 sqM) Glucose 79 (74-99) mg/dL Estimated Ave Glu mg/dL mg/dL Hemoglobin A1c (<=6.0) % Calcium 9.3 (8.4-10.2) mg/dL Magnesium 2.0 (1.6-2.3) mg/dL Total Bilirubin 0.9 (0.2-1.3) mg/dL AST 48 H (14-36) U/L ALT 30 (4-34) U/L Alkaline Phosphatase 150 H (38-126) U/L Troponin I (0.000-0.034) ng/mL NT-Pro-B Natriuret Pep <20 pg/mL Total Protein 7.0 (6.3-8.2) g/dL Albumin 4.2 (3.5-5.0) g/dL Triglycerides (0.00-149.00) mg/dL Cholesterol (0.00-200.00) mg/dL LDL Cholesterol, Calc (0.0-131.0) mg/dL VLDL Cholesterol, Calc (5.00-40.00) mg/dL HDL Cholesterol (40.00-60.00) mg/dL Cholesterol/HDL Ratio Ratio Lipase (23-300) U/L 02/14/25 02/14/25 02/14/25 Range/Units 15:27 15:27 15:27 WBC (4.50-10.00) 10*3/uL RBC (4.10-5.20) 10*6/uL Hgb (12.0-15.0) g/dL Hct (37.2-46.3) % MCV (80.0-97.0) fL MCH (27.0-32.0) pg MCHC (32.0-37.0) g/dL Plt Count (140-440) 10*3/uL MPV (9.5-12.2) fL Immature Gran % (Auto) % Neutrophils % % Lymphocytes % % Monocytes % % Eosinophils % % Basophils % % Immature Gran # (0.00-0.04) 10*3/uL Neutrophils # (1.80-7.70) 10*3/uL Lymphocytes # (0.90-5.00) 10*3/uL Monocytes # (0.20-1.00) 10*3/uL Eosinophils # (0.04-0.35) 10*3/uL Basophils # (0.00-0.10) 10*3/uL PT (10.0-12.5) sec INR (<1.2) APTT (22.0-30.0) sec D-Dimer (<0.60) mg/L FEU Sodium (137-145) mmol/L Potassium (3.5-5.1) mmol/L Chloride (98-107) mmol/L Carbon Dioxide (22-30) mmol/L Anion Gap mmol/L BUN (7-17) mg/dL Creatinine (0.52-1.04) mg/dL Est GFR (CKD-EPI)AfAm (>60 ml/min/1.73 sqM) Est GFR (CKD-EPI)NonAf (>60 ml/min/1.73 sqM) Glucose (74-99) mg/dL Estimated Ave Glu mg/dL 100 mg/dL Hemoglobin A1c 5.1 (<=6.0) % Calcium (8.4-10.2) mg/dL Magnesium (1.6-2.3) mg/dL Total Bilirubin (0.2-1.3) mg/dL AST (14-36) U/L ALT (4-34) U/L Alkaline Phosphatase (38-126) U/L Troponin I <0.012 (0.000-0.034) ng/mL NT-Pro-B Natriuret Pep pg/mL Total Protein (6.3-8.2) g/dL Albumin (3.5-5.0) g/dL Triglycerides (0.00-149.00) mg/dL Cholesterol (0.00-200.00) mg/dL LDL Cholesterol, Calc (0.0-131.0) mg/dL VLDL Cholesterol, Calc (5.00-40.00) mg/dL HDL Cholesterol (40.00-60.00) mg/dL Cholesterol/HDL Ratio Ratio Lipase 353 H (23-300) U/L 02/14/25 Range/Units 15:27 WBC (4.50-10.00) 10*3/uL RBC (4.10-5.20) 10*6/uL Hgb (12.0-15.0) g/dL Hct (37.2-46.3) % MCV (80.0-97.0) fL MCH (27.0-32.0) pg MCHC (32.0-37.0) g/dL Plt Count (140-440) 10*3/uL MPV (9.5-12.2) fL Immature Gran % (Auto) % Neutrophils % % Lymphocytes % % Monocytes % % Eosinophils % % Basophils % % Immature Gran # (0.00-0.04) 10*3/uL Neutrophils # (1.80-7.70) 10*3/uL Lymphocytes # (0.90-5.00) 10*3/uL Monocytes # (0.20-1.00) 10*3/uL Eosinophils # (0.04-0.35) 10*3/uL Basophils # (0.00-0.10) 10*3/uL PT (10.0-12.5) sec INR (<1.2) APTT (22.0-30.0) sec D-Dimer (<0.60) mg/L FEU Sodium (137-145) mmol/L Potassium (3.5-5.1) mmol/L Chloride (98-107) mmol/L Carbon Dioxide (22-30) mmol/L Anion Gap mmol/L BUN (7-17) mg/dL Creatinine (0.52-1.04) mg/dL Est GFR (CKD-EPI)AfAm (>60 ml/min/1.73 sqM) Est GFR (CKD-EPI)NonAf (>60 ml/min/1.73 sqM) Glucose (74-99) mg/dL Estimated Ave Glu mg/dL mg/dL Hemoglobin A1c (<=6.0) % Calcium (8.4-10.2) mg/dL Magnesium (1.6-2.3) mg/dL Total Bilirubin (0.2-1.3) mg/dL AST (14-36) U/L ALT (4-34) U/L Alkaline Phosphatase (38-126) U/L Troponin I (0.000-0.034) ng/mL NT-Pro-B Natriuret Pep 89 pg/mL Total Protein (6.3-8.2) g/dL Albumin (3.5-5.0) g/dL Triglycerides 113.00 (0.00-149.00) mg/dL Cholesterol 180.00 (0.00-200.00) mg/dL LDL Cholesterol, Calc 59.5 (0.0-131.0) mg/dL VLDL Cholesterol, Calc 22.60 (5.00-40.00) mg/dL HDL Cholesterol 97.90 H (40.00-60.00) mg/dL Cholesterol/HDL Ratio 1.84 Ratio Lipase (23-300) U/L - EKG Data EKG Comments: 12-lead Electrocardiogram Interpretation Note EKG was reviewed and interpreted by myself. 12-lead ECG performed at 1338 is interpreted by me as revealing normal sinus rhythm at a rate of 69 beats per minute. [place] is normal. [place] interval is 181 ms, QRS duration is 90 ms, QTc is 408 ms.. There were no ST or T wave abnormalities to suggest myocardial ischemia or injury. R wave progression across the precordium was satisfactory. By my interpretation this EKG is non-diagnostic for acute ischemia. (Russel Meléndez) Disposition <Russel Meléndez - Last Filed: 02/14/25 14:50> <Hallie Mcqueen - Last Filed: 02/16/25 12:16> Clinical Impression: Chest pain, Pancreatitis Disposition: ADMITTED IP TO THIS HOSP Condition: Stable
[2025-02-14] MEDS: LORazepam 0.5 MG TAB PO STA (14:53)
[2025-02-14] MEDS: ASPIRIN 81 MG PO STA (14:53)
--- NOTE | 2025-02-14 15:06 | XR ---
EXAMINATION TYPE: XR chest 2V DATE OF EXAM: 02/14/2025 3:02 PM COMPARISON: None CLINICAL INDICATION: Female, 44 years old with history of Chest Pain, , TECHNIQUE: PA and lateral views FINDINGS: The cardiomediastinal silhouette, aorta, and pulmonary vasculature are within normal limits. Slight a symmetric elevation right hemidiaphragm. Lungs and pleural spaces are clear. IMPRESSION: No acute cardiopulmonary process. [facility], , 02/14/2025 3:04 PM
[2025-02-14 15:43] LABS: Basophils # (A) 0.05 10*3/uL (0.00-0.10); Basophils % (A) 1.1 %; Eosinophils # (A) 0.13 10*3/uL (0.04-0.35); Eosinophils % (A) 2.8 %; HCT 39.9 % (37.2-46.3); HGB 13.4 g/dL (12.0-15.0); Lymphocytes # (A) 1.83 10*3/uL (0.90-5.00); Lymphocytes % (A) 38.9 %; MCH 32.1 pg (27.0-32.0); MCHC 33.6 g/dL (32.0-37.0); MCV 95.7 fL (80.0-97.0); Mean Platelet Volume 10.6 fL (9.5-12.2); Monocytes # (A) 0.48 10*3/uL (0.20-1.00); Monocytes % (A) 10.2 %; Neutrophils # (A) 2.21 10*3/uL (1.80-7.70); Neutrophils % (A) 46.8 %; Platelet Count 181 10*3/uL (140-440); RBC 4.17 10*6/uL (4.10-5.20); RDW 13.4 % (11.5-14.5); WBC 4.71 10*3/uL (4.50-10.00)
[2025-02-14 15:59] LABS: ALT 30 U/L (4-34); AST 48 U/L (14-36); African American GFR (CKD) >90 (>60 ml/min/1.73 sqM); Albumin 4.2 g/dL (3.5-5.0); Alkaline Phosphatase 150 U/L (38-126); Anion Gap 9 mmol/L; Blood Urea Nitrogen 14 mg/dL (7-17); Calcium 9.3 mg/dL (8.4-10.2); Carbon Dioxide 21 mmol/L (22-30); Chloride 106 mmol/L (98-107); Glucose 79 mg/dL (74-99); Non-African American GFR(CKD) 84 (>60 ml/min/1.73 sqM); Potassium 4.4 mmol/L (3.5-5.1); Sodium 136 mmol/L (137-145); Total Bilirubin 0.9 mg/dL (0.2-1.3)
[2025-02-14] MEDS: SODIUM CHLORIDE 0.9% 1,000 ML IV STA (15:59)
[2025-02-14 16:07] LABS: NT-Pro-B-Type Natriuretic Pept <20 pg/mL
[2025-02-14] MEDS: ONDANSETRON 4 MG/2 ML VIAL IVP STA (16:07)
[2025-02-14] MEDS: MORPHINE SULFATE 2 MG/ML SYRINGE IVP STA (16:07)
[2025-02-14 16:25] LABS: INR 0.9 (<1.2); Partial Thromboplastin Time 21.8 sec (22.0-30.0); Prothrombin Time 9.9 sec (10.0-12.5)
[2025-02-14] MEDS: ACETAMINOPHEN TAB 500 MG TAB PO STA (17:26)
[2025-02-14] MEDS: NITROGLYCERIN SL TABS 0.4 MG TAB SUBLINGUAL STA (17:26)
[2025-02-14] MEDS: SODIUM CHLORIDE 0.9% 500 ML 500 ML IV ONE (17:27)
--- NOTE | 2025-02-14 18:22 | US ---
EXAMINATION TYPE: US gallbladder DATE OF EXAM: 02/14/2025 COMPARISON: CT abdomen and pelvis 01/18/2018 CLINICAL INDICATION: Female, 44 years old with history of mild elevated LFT, alk phos, lipase, epigas tric pa; patient states epigastric/chest pain, hx cholecystectomy. Elevated labs TECHNIQUE: Grayscale and color Doppler imaging of the right upper quadrant was performed. FINDINGS: EXAM MEASUREMENTS: Liver Length: 12.7 cm Gallbladder Wall: Surgically absent CBD: 0.8 cm Right Kidney: 9.2 x 4.9 x 4.2 cm MILITARY PROFESSIONAL NOTES:limited due to overlying gas Pancreas: Obscured by bowel gas Liver: wnl as best seen, intercostal views used Gallbladder: Surgically absent CBD: wnl Right Kidney: wnl The pancreas is obscured by overlying bowel gas. The visualized portions of the liver appear unremark able. The gallbladder is surgically absent. Common bile duct is within normal limits. Right kidney de monstrates no solid mass, shadowing calculus or hydronephrosis. IMPRESSION: Limited examination due to overlying bowel gas. 1. No ultrasound evidence for acute process. 2. Post cholecystectomy changes. [facility], , 02/14/2025 6:20 PM
[2025-02-14] MEDS ORDERED: ONDANSETRON 4 MG/2 ML VIAL IVP PRN (18:33)
[2025-02-14] MEDS ORDERED: MAG HYDROX/AL HYDROX/SIMETH 30 ML CUP PO PRN (18:33)
[2025-02-14] MEDS ORDERED: NALOXONE 0.4 MG/ML 1 ML VIAL IV PRN (18:33)
[2025-02-14] MEDS ORDERED: CALCIUM CARBONATE 500 MG CHEWABLE PO PRN (18:33)
[2025-02-14] MEDS: MORPHINE SULFATE 4 MG/ML SYRINGE IVP STA (18:52)
[2025-02-14] MEDS: SODIUM CHLORIDE 0.9% 1,000 ML IV SCH (18:53)
[2025-02-14 19:54] VITALS: RESP 16
[2025-02-14] MEDS: traMADol 50 MG TAB PO PRN (22:15)
[2025-02-14] MEDS: FAMOTIDINE 20 MG TAB PO SCH (22:15)
[2025-02-15] MEDS: TOPIRAMATE 100 MG TAB PO SCH (01:01)
[2025-02-15] MEDS: MORPHINE SULFATE 4 MG/ML SYRINGE IV PRN (01:01)
[2025-02-15] MEDS: ACETAMINOPHEN TAB 325 MG TAB PO PRN (08:00)
[2025-02-15] MEDS: ALPRAZolam 0.25 MG TAB PO PRN (08:01)
[2025-02-15 08:51] VITALS: BP 121/81; PULSE 67; TEMP 97.9
--- NOTE | 2025-02-15 10:56 | P.CRDCN ---
History of Present Illness Consult date: 02/15/25 Consult reason: chest pain History of present illness: This is a 44-year-old female patient with past medical history of POTS on propranolol, endometriosis, family history of premature coronary artery disease. We have been asked to evaluate the patient for chest pain. Patient states that her brother 6 weeks ago at age 58 from a myocardial infarction. She states that she has no previous cardiac history and no previous cardiac workup. She states she woke up yesterday with a pinching sensation in her chest that was coming and going. It seemed to get more severe and more frequent throughout the day and she decided to come in to have it evaluated. She states she still has a pressure sensation at this time. Blood pressure 112/76, heart rate 78, pulse ox 97% on room air. -EKG: Sinus rhythm with no acute ST-T wave changes. -Gallbladder ultrasound showed no acute process. Postcholecystectomy -Chest x-ray: No acute process. -Laboratory studies: CBC, INR, D-dimer all within normal limits. Creatinine 0.84. Troponin negative x 3. proBNP less than 20. Lipase 353. -Home cardiac medications: Aspirin 81 mg daily, propranolol 80 mg 3 times daily. Review Of Systems: At the time of my exam: CONSTITUTIONAL: Denies fever or chills. HEENT: Denies blurred vision, vision changes, or eye pain. Denies hemoptysis CARDIOVASCULAR: Reports chest pain. Denies orthopnea. Denies PND. Denies palpitations RESPIRATORY: Denies shortness of breath. GASTROINTESTINAL: Denies abdominal pain. Denies nausea or vomiting. HEMATOLOGIC: Denies bleeding disorders. GENITOURINARY: Denies any blood in urine. SKIN: Denies puritis. Denies rash. Physical examination: Gen: This is a 44-year-old female in no acute distress VS: reviewed HEENT: Head is atraumatic, normocephalic. Pupils equal, round. Sclerae is anicteric. NECK: Supple. No JVD. LUNGS: Clear to auscultation. No wheezes or rhonchi. No intercostal retractions. HEART: Regular rate and rhythm. No murmur. ABDOMEN: Soft No tenderness. EXTREMITIES: No pedal edema. No calf tenderness. NEUROLOGICAL: Patient is awake, alert and oriented x3. Assessment: Atypical chest pain, acute coronary syndrome ruled out POTS Endometriosis Family history of premature coronary artery disease Plan: Hold propranolol this morning till stress test is completed Schedule patient for stress echocardiogram today Obtain 2-D echocardiogram and Doppler study to assess cardiac structure and function Obtain lipid panel, A1c, BNP If stress testing is unremarkable, patient is cleared for discharge and may follow-up in the office with Dr. Quick in 2 weeks Thank you kindly for this consultation. Nurse practitioner note has been reviewed, I agree with documented findings and plan of care. Patient was seen and examined. Past Medical History Past Medical History: CVA/TIA, Thyroid Disorder Additional Past Medical History / Comment(s): migraines, pots, endometriosis, interstitial cystitis,kidney stones History of Any Multi-Drug Resistant Organisms: None Reported Past Surgical History: Appendectomy, Back Surgery, Bariatric Surgery, Cholecystectomy, Hysterectomy, Orthopedic Surgery, Tonsillectomy Additional Past Surgical History / Comment(s): right oopherectomy, C4-5 fusion, right tibia/fibula sx Past Anesthesia/Blood Transfusion Reactions: No Reported Reaction Past Psychological History: Anxiety Smoking Status: Former smoker Past Alcohol Use History: Occasional Additional Past Alcohol Use History / Comment(s): Patient reports smoking for one year at age 19. Past Drug Use History: None Reported - Past Family History Mother Additional Family Medical History / Comment(s): Depression, CABG Father Family Medical History: Cancer, Diabetes Mellitus, Hypertension Additional Family Medical History / Comment(s): skin cancer, Parkinson's Brother(s) Family Medical History: Diabetes Mellitus, Myocardial Infarction ([place]) Additional Family Medical History / Comment(s): at age 58 from [place] Medications and Allergies Home Medications Medication Instructions Recorded Confirmed Type Aspirin 81 mg PO DAILY 06/11/15 02/14/25 History Propranolol HCl 80 mg PO TID 05/05/17 02/14/25 History Topiramate [Topamax] 100 mg PO HS 08/25/17 02/14/25 History Desvenlafaxine Succinate [Pristiq 50 mg PO DAILY 10/07/23 02/14/25 History ER] Desvenlafaxine Succinate [Pristiq] 25 mg PO DAILY 10/07/23 02/14/25 History buPROPion HCL [buPROPion HCL XL] 300 mg PO DAILY 10/07/23 02/14/25 History Cyanocobalamin [Vitamin B-12 1,000 mcg SQ Q30D 02/14/25 02/14/25 History Injection] Eszopiclone [Lunesta] 3 mg PO HS PRN 02/14/25 02/14/25 History Pantoprazole [Protonix] 40 mg PO DAILY 02/14/25 02/14/25 History Allergies Allergy/AdvReac Type Severity Reaction Status Date / Time adhesive tape Allergy Unknown Verified 02/14/25 13:59 metoclopramide HCl Allergy Unknown Verified 02/14/25 13:59 [From Reglan] promethazine HCl Allergy Unknown Verified 02/14/25 13:59 [From Phenergan] sulfamethoxazole Allergy Rash/Hives Verified 02/14/25 13:59 [From Bactrim] sumatriptan [From Imitrex] Allergy Unknown Verified 02/14/25 13:59 sumatriptan succinate Allergy Unknown Verified 02/14/25 13:59 [From Imitrex] trimethoprim [From Bactrim] Allergy Rash/Hives Verified 02/14/25 13:59 NSAIDS (Non-Steroidal AdvReac Pain, Verified 02/14/25 13:59 Anti-Inflamma Nausea & Vomiting prochlorperazine edisylate AdvReac Pain, Verified 02/14/25 13:59 [From Compazine] Nausea & Vomiting prochlorperazine maleate AdvReac Pain, Verified 02/14/25 13:59 [From Compazine] Nausea & Vomiting Physical Exam Vitals: Vital Signs Temp Pulse Pulse Resp BP BP Pulse Ox 02/15/25 02:00 98.0 F 78 16 112/76 97 02/14/25 21:25 98.0 F 87 16 131/86 95 02/14/25 19:53 80 16 120/92 99 02/14/25 18:57 98.0 F 82 22 101/63 81 L 02/14/25 17:25 98.1 F 88 22 120/80 98 02/14/25 16:00 98.0 F 67 22 123/84 99 02/14/25 13:23 98.1 F 77 16 113/81 95 Intake and Output 02/14/25 02/15/25 02/15/25 22:59 06:59 14:59 Other: # Voids 1 1 Weight 77.111 kg Results 02/14/25 15:27 02/14/25 15:27 Cardiac Enzymes 02/14/25 02/14/25 02/14/25 Range/Units 15:27 15:27 19:26 AST 48 H (14-36) U/L Troponin I <0.012 <0.012 (0.000-0.034) ng/mL 02/14/25 Range/Units 23:15 AST (14-36) U/L Troponin I <0.012 (0.000-0.034) ng/mL Coagulation 02/14/25 Range/Units 15: PT 9.9 L (10.0-12.5) sec APTT 21.8 L (22.0-30.0) sec CBC 02/14/25 Range/Units 15: WBC 4.71 (4.50-10.00) 10*3/uL RBC 4.17 (4.10-5.20) 10*6/uL Hgb 13.4 (12.0-15.0) g/dL Hct 39.9 (37.2-46.3) % Plt Count 181 (140-440) 10*3/uL Comprehensive Metabolic Panel 02/14/25 Range/Units 15:27 Sodium 136 L (137-145) mmol/L Potassium 4.4 (3.5-5.1) mmol/L Chloride 106 (98-107) mmol/L Carbon Dioxide 21 L (22-30) mmol/L BUN 14 (7-17) mg/dL Creatinine 0.84 (0.52-1.04) mg/dL Glucose 79 (74-99) mg/dL Calcium 9.3 (8.4-10.2) mg/dL AST 48 H (14-36) U/L ALT 30 (4-34) U/L Alkaline Phosphatase 150 H (38-126) U/L Total Protein 7.0 (6.3-8.2) g/dL Albumin 4.2 (3.5-5.0) g/dL Current Medications Generic Name Dose Route Start Last Admin Trade Name Freq PRN Reason Stop Dose Admin Acetaminophen 650 mg 02/15/25 00:00 02/15/25 08:00 Acetaminophen Tab 325 Mg Tab PO 650 mg Q6HR PRN Administration Mild Pain or Fever > 100.5 Al Hydroxide/Mg Hydroxide 15 ml 02/14/25 18:33 Mag Hydrox/Al Hydrox/Simeth 30 Ml Cup PO Q6HR PRN Indigestion Alprazolam 0.25 mg 02/14/25 18:33 02/15/25 08:01 Alprazolam 0.25 Mg Tab PO 0.25 mg Q6HR PRN Administration Anxiety Calcium Carbonate/Glycine 1,000 mg 02/14/25 18:33 Calcium Carbonate 500 Mg Chewable PO Q4HR PRN Dyspepsia Enoxaparin Sodium 40 mg 02/15/25 09:00 Enoxaparin 40 Mg/0.4 Ml Syringe SQ DAILY SOFIA Famotidine 20 mg 02/14/25 21:00 02/15/25 08:01 Famotidine 20 Mg Tab PO 20 mg BID SOFIA Administration Sodium Chloride 1,000 mls @ 130 mls/hr 02/14/25 18:45 02/15/25 05:48 Saline 0.9% IV 130 mls/hr .[id number] SOFIA Administration Morphine Sulfate 4 mg 02/14/25 18:33 02/15/25 06:03 Morphine Sulfate 4 Mg/Ml Syringe IV 4 mg Q4HR PRN Administration Severe Pain (Scale 7 to 10) Naloxone HCl 0.2 mg 02/14/25 18:33 Naloxone 0.4 Mg/Ml 1 Ml Vial IV Q2M PRN Opioid Reversal Ondansetron HCl 4 mg 02/14/25 18:33 Ondansetron 4 Mg/2 Ml Vial IVP Q8HR PRN Nausea And Vomiting Topiramate 100 mg 02/15/25 00:15 02/15/25 01:01 Topiramate 100 Mg Tab PO 100 mg HS SOFIA Administration Tramadol HCl 50 mg 02/14/25 18:33 02/14/25 22:15 Tramadol 50 Mg Tab PO 50 mg Q6H PRN Administration Moderate Pain (Scale 4 to 6) Intake and Output 02/14/25 02/15/25 02/15/25 22:59 06:59 14:59 Other: # Voids 1 1 Weight 77.111 kg 02/14/25 15:27 02/14/25 15:27
[2025-02-15] MEDS: PANTOPRAZOLE 40 MG TABLET PO SCH (11:57)
[2025-02-15] MEDS: ENOXAPARIN 40 MG/0.4 ML SYRINGE SQ SCH (12:02)
[2025-02-15] MEDS: ASPIRIN 81 MG PO SCH (12:02)
[2025-02-15] MEDS: buPROPion XL 300 MG TAB.ER.24H PO SCH (12:03)
[2025-02-15] MEDS: PROPRANOLOL 40 MG TAB PO SCH (12:03)
[2025-02-15] MEDS: NON FORMULARY DRUG (Desvenlafaxine Succinate [Pristiq] 25 MG Tab.Er.24h) PO SCH (12:04)
[2025-02-15] MEDS: DESVENLAFAXINE SUCCINATE 50 MG TAB.ER.24H PO SCH (12:04)
--- NOTE | 2025-02-15 13:11 | CA ---
Transthoracic Echo Report Name: Fabiola Gutierrez Age: 44 Gender: F : 1980 Exam Date: 02/15/2025 11:16 Exam Location: [facility] Ht (in): 67 Wt (lb): 170 Ordering Physician: Shama Dhillon Attending/Referring Phys: [id number], [employer] Actuary Lien Granados, BLAIR Procedure CPT: Indications: LVF Cardiac Hx: Technical Quality: Good Contrast 1: Total Dose (mL): Contrast 2: Total Dose (mL): MEASUREMENTS (Male / Female) Normal Values 2D ECHO LV Diastolic Diameter PLAX 4.7 cm 4.2 - 5.9 / 3.9 - 5.3 cm LV Systolic Diameter PLAX 2.5 cm IVS Diastolic Thickness 0.9 cm 0.6 - 1.0 / 0.6 - 0.9 cm LVPW Diastolic Thickness 0.9 cm 0.6 - 1.0 / 0.6 - 0.9 cm LV Relative Wall Thickness 0.4 RV Internal Dim ED PLAX 3.1 cm LA Systolic Diameter LX 3.4 cm 3.0 - 4.0 / 2.7 - 3.8 cm LV Diastolic Volume MOD 4C 98.2 cm??? LV Systolic Volume MOD 4C 34.2 cm??? LV Ejection Fraction MOD 4C 65.2 % LV Cardiac Index MOD 4C 3025.5 cm???/min???m??? LV Diastolic Length 4C 7.9 cm LV Systolic Length 4C 5.7 cm LV Diastolic Volume MOD 2C 66.2 cm??? LV Systolic Volume MOD 2C 20.1 cm??? LV Ejection Fraction MOD 2C 69.7 % LV Cardiac Index MOD 2C 2184.3 cm???/min???m??? LV Diastolic Length 2C 7.2 cm LV Systolic Length 2C 5.1 cm LA Volume 55.7 cm??? 18 - 58 / 22 - 52 cm??? LA Volume Index 29.0 cm???/m??? 16 - 28 cm???/m??? M-MODE Aortic Root Diameter MM 3.1 cm DOPPLER AV Peak Velocity 118.0 cm/s AV Peak Gradient 5.6 mmHg TR Peak Velocity 232.1 cm/s TR Peak Gradient 21.6 mmHg Right Ventricular Systolic Press 26.4 mmHg FINDINGS Left Ventricle Left ventricular ejection fraction is estimated at 60-65 %. Left ventricular cavity size normal. Left ventricular wall thickness normal. Normal left ventricular wall motion. Right Ventricle Normal right ventricular size and function. Right ventricular systolic pressure within normal limits. Right Atrium Normal right atrial size. No right atrial thrombus or mass seen. Left Atrium Mildly increased left atrial volume. No left atrial thrombus or mass present. Mitral Valve Structurally normal mitral valve. No evidence for mitral valve prolapse. No mitral stenosis. Trace mitral regurgitation. Aortic Valve Trileaflet aortic valve. No aortic valve stenosis or regurgitation. Tricuspid Valve Structurally normal tricuspid valve. Mild tricuspid regurgitation. Pulmonic Valve Structurally normal pulmonic valve. Trace pulmonic regurgitation. Pericardium No pericardial effusion. Aorta Normal size aortic root and proximal ascending aorta. CONCLUSIONS LVEF 60% No obvious regional wall motion abnormality Normal RV size and systolic function No significant valvular dysfunction RVSP estimated at 26 mmHg Previewed by: Dr Kurt Quick (Electronically Signed) Final Date: 15 February 2025 13:10
--- NOTE | 2025-02-15 13:24 | CA ---
Stress Echo Report Fabiola Gutierrez Age: 44 Gender: F : 1980 Exam Date: 02/15/2025 10:56 Exam Location: [facility] Ht (in): 67 Wt (lb): 170 Ordering Physician: Shama Dhillon Referring Physician: NAKUL/COREY,, Farm Contractor: Lien Granados RDCS Technologist Procedure CPT: Indication: Chest Pain ICD-9 Codes: Rhythm: Patient History: CHEST PAIN, HTN, PRIOR CVA, FAMILY HX OF HEART DISEASE Cardiac Medications: Medications in past 24 hours: Contrast: Stress Results Protocol: Grzegorz Total dose(mL): Exercise Duration (min:sec): 4:[address] Depression (mm): Angina Score: Murry Score: METS: 6.4 Resting HR: 111 Resting BP: 124 / 79 Peak HR: 160 Peak BP: 141 / 94 Max Predicted HR: 174 92 % Max Predicted HR Target HR: 148 Double Product: [id number] Stress Summary: BP Response: Reason for Termination: MAX EXERTION/TARGET HR Cardiac Symptoms: NO SYMPTOMS ECG Analysis Resting ECG: Normal sinus rhythm Stress ECG: No significant ST-T wave changes that are concerning for ischemia by ST segment analysis Arrhythmia: No significant arrhythmias or ectopic beats noted during the stress test Echo Analysis Resting Echo: Normal global and segmental systolic function with no resting regional wall motion abnormality Peak Echo Analysis: Normal augmentation of global and segmental systolic function with no stress-induced regional wall motion abnormality MEASUREMENTS (Male/Female) Normal Values CONCLUSIONS Poor exercise tolerance for age achieving only 6.4 METS Normal hemodynamic and clinical response to treadmill exercise Nonischemic ECG and echocardiographic response to treadmill exercise Overall low probability for severe obstructive CAD Dr Kurt Quick (Electronically Signed) Final Date: 15 February 2025 13:23
--- NOTE | 2025-02-15 13:58 | P.HPIM ---
History of Present Illness H&P Date: 02/15/25 History of present illness; Patient is a 44-year-old female patient with past medical history of POTS on propranolol, endometriosis, family history of premature coronary artery disease who presents with chest pain. She states she woke up yesterday with a pinching sensation in her chest that was coming and going. Pain is located substernally nonradiating, without shortness of breath or nausea. It seemed to get more severe and more frequent throughout the day and she decided to come in to have i t evaluated. She states she still has a pressure sensation at this time. She also states that her brother 6 weeks ago at age 58 from a myocardial infarction. She states that she has no previous cardiac history and no previous cardiac workup. She currently denying other symptoms. Spoke with the ER physician, patient admission was accepted by internal medicine service for treatment. REVIEW OF SYSTEMS: Pertinent positives and negatives noted in HPI. PHYSICAL EXAMINATION: Vitals reviewed GENERAL: Anxious, otherwise comfortable. EYES: PERRL, no scleral injection or icterus. No vision loss HENT: Normocephalic, atraumatic, hearing grossly intact, moist mucous membranes NECK: No tracheal deviation, full range of motion. CARDIOVASCULAR: S1 and S2 present. No murmurs, rubs, or gallops. PULMONARY: Chest is clear to auscultation, no wheezing, rhonchi, or crackles. ABDOMEN: Soft, nontender, nondistended. No palpable organomegaly. MUSCULOSKELETAL: No apparent joint swelling and deformities. EXTREMITIES: No apparent cyanosis, clubbing. No pedal edema. NEUROLOGICAL: Alert and oriented. Gross neurological examination with no apparent focal deficits. Objective FINDINGS: -EKG: Sinus rhythm with no acute ST-T wave changes. -Gallbladder ultrasound showed no acute process. Postcholecystectomy Stress echo overall low probability for severe obstructive CAD Echocardiogram LVEF 60% -Chest x-ray: No acute process. -Laboratory studies: CBC, INR, D-dimer all within normal limits. Creatinine 0.84. Troponin negative x 3. proBNP less than 20. Lipase 353. Assessment and Plan: In summary, patient is a 44-year-old female patient with past medical history of POTS on propranolol, endometriosis, family history of premature coronary artery disease who presents with chest pain. #Atypical chest pain - Initial troponins negative 3x -given aspirin 325, continue 81mg qd A1c, lipid panel, pro-BNP ordered Stress echo overall low probability for severe obstructive CAD Echocardiogram LVEF 60% - Cardiology consulted #Elevated lipase No acute process on abdominal ultrasound Chronic Medical Conditions POTS Endometriosis Family history of premature coronary artery disease DVT ppx: Subq Lovenox 40 meq daily Code status: Full code F: P.o. E: Replete as needed N: Heart healthy diet A: Ambulatory Anticipated discharge place: Home Anticipated discharge time: Today Dictation was produced using [employer], a [employer] dictation software. Please excuse any grammatical, word or spelling errors. Past Medical History Past Medical History: CVA/TIA, Thyroid Disorder Additional Past Medical History / Comment(s): migraines, pots, endometriosis, interstitial cystitis,kidney stones History of Any Multi-Drug Resistant Organisms: None Reported Past Surgical History: Appendectomy, Back Surgery, Bariatric Surgery, Cholecystectomy, Hysterectomy, Orthopedic Surgery, Tonsillectomy Additional Past Surgical History / Comment(s): right oopherectomy, C4-5 fusion, right tibia/fibula sx Past Anesthesia/Blood Transfusion Reactions: No Reported Reaction Past Psychological History: Anxiety Smoking Status: Former smoker Past Alcohol Use History: Occasional Additional Past Alcohol Use History / Comment(s): Patient reports smoking for one year at age 19. Past Drug Use History: None Reported - Past Family History Mother Additional Family Medical History / Comment(s): Depression, CABG Father Family Medical History: Cancer, Diabetes Mellitus, Hypertension Additional Family Medical History / Comment(s): skin cancer, Parkinson's Brother(s) Family Medical History: Diabetes Mellitus, Myocardial Infarction ([place]) Additional Family Medical History / Comment(s): at age 58 from [place] Medications and Allergies Home Medications Medication Instructions Recorded Confirmed Type Aspirin 81 mg PO DAILY 06/11/15 02/14/25 History Propranolol HCl 80 mg PO TID 05/05/17 02/14/25 History Topiramate [Topamax] 100 mg PO HS 08/25/17 02/14/25 History Desvenlafaxine Succinate [Pristiq 50 mg PO DAILY 10/07/23 02/14/25 History ER] Desvenlafaxine Succinate [Pristiq] 25 mg PO DAILY 10/07/23 02/14/25 History buPROPion HCL [buPROPion HCL XL] 300 mg PO DAILY 10/07/23 02/14/25 History Cyanocobalamin [Vitamin B-12 1,000 mcg SQ Q30D 02/14/25 02/14/25 History Injection] Eszopiclone [Lunesta] 3 mg PO HS PRN 02/14/25 02/14/25 History Pantoprazole [Protonix] 40 mg PO DAILY 02/14/25 02/14/25 History Allergies Allergy/AdvReac Type Severity Reaction Status Date / Time adhesive tape Allergy Unknown Verified 02/14/25 13:59 metoclopramide HCl Allergy Unknown Verified 02/14/25 13:59 [From Reglan] promethazine HCl Allergy Unknown Verified 02/14/25 13:59 [From Phenergan] sulfamethoxazole Allergy Rash/Hives Verified 02/14/25 13:59 [From Bactrim] sumatriptan [From Imitrex] Allergy Unknown Verified 02/14/25 13:59 sumatriptan succinate Allergy Unknown Verified 02/14/25 13:59 [From Imitrex] trimethoprim [From Bactrim] Allergy Rash/Hives Verified 02/14/25 13:59 NSAIDS (Non-Steroidal AdvReac Pain, Verified 02/14/25 13:59 Anti-Inflamma Nausea & Vomiting prochlorperazine edisylate AdvReac Pain, Verified 02/14/25 13:59 [From Compazine] Nausea & Vomiting prochlorperazine maleate AdvReac Pain, Verified 02/14/25 13:59 [From Compazine] Nausea & Vomiting Physical Exam Vitals: Vital Signs Temp Pulse Pulse Resp BP BP BP 02/15/25 07:47 97.9 F 67 16 121/81 02/15/25 02:00 98.0 F 78 16 112/76 02/14/25 21:25 98.0 F 87 16 131/86 02/14/25 19:53 80 16 120/92 02/14/25 18:57 98.0 F 82 22 101/63 02/14/25 17:25 98.1 F 88 22 120/80 02/14/25 16:00 98.0 F 67 22 123/84 Pulse Ox 02/15/25 07:47 97 02/15/25 02:00 97 02/14/25 21:25 95 02/14/25 19:53 99 02/14/25 18:57 81 L 02/14/25 17:25 98 02/14/25 16:00 99 Intake and Output 02/14/25 02/15/25 02/15/25 22:59 06:59 14:59 Other: # Voids 1 1 Weight 77.111 kg Results CBC & Chem 7: 02/14/25 15:27 02/14/25 15:27 Labs: Abnormal Lab Results - Last 24 Hours (Table) 02/14/25 02/14/25 02/14/25 Range/Units 15:27 15:27 15:27 MCH 32.1 H (27.0-32.0) pg PT 9.9 L (10.0-12.5) sec APTT 21.8 L (22.0-30.0) sec Sodium 136 L (137-145) mmol/L Carbon Dioxide 21 L (22-30) mmol/L AST 48 H (14-36) U/L Alkaline Phosphatase 150 H (38-126) U/L Lipase (23-300) U/L 02/14/25 Range/Units 15:27 MCH (27.0-32.0) pg PT (10.0-12.5) sec APTT (22.0-30.0) sec Sodium (137-145) mmol/L Carbon Dioxide (22-30) mmol/L AST (14-36) U/L Alkaline Phosphatase (38-126) U/L Lipase 353 H (23-300) U/L Thrombosis Risk Factor Assmnt - Choose All That Apply Each Factor Represents 1 point: Age 41-60 years, Obesity (BMI >25) Thrombosis Risk Factor Assessment Total Risk Factor Score: 2 Thrombosis Risk Factor Assessment Level: Low Risk
--- NOTE | 2025-02-15 14:05 | P.DS ---
Providers Date of admission: 02/14/25 18:33 Expected date of discharge: 02/15/25 Attending physician: Ritchie Ring Consults: 02/14/25 18:33 Consult Physician Routine Consulting Provider: [facility] Consult Reason/Comments: Chest pain Do you want consulting provider notified?: Yes, Notify in am Primary care physician: Darrin [facility] Course: Discharge diagnoses; #Atypical chest pain #Elevated lipase POTS Endometriosis Family history of premature coronary artery disease Hospital course; History of present illness; Patient is a 44-year-old female patient with past medical history of POTS on propranolol, endometriosis, family history of premature coronary artery disease who presents with chest pain. She states she woke up yesterday with a pinching sensation in her chest that was coming and going. Pain is located substernally nonradiating, without shortness of breath or nausea. It seemed to get more severe and more frequent throughout the day and she decided to come in to have it evaluated. She states she still has a pressure sensation at this time. She also states that her brother 6 weeks ago at age 58 from a myocardial infarction. She states that she has no previous cardiac history and no previous cardiac workup. She currently denying other symptoms. During hospital stay patient seen by cardiology. Stress echo overall low probability for severe obstructive CAD and echocardiogram LVEF 60%. Patient discharged home in stable condition. Patient is to follow-up with PCP and cardiology in 2 weeks. Follow-up on lipid panel, TSH, A1c. PHYSICAL EXAMINATION: Vitals reviewed GENERAL: Anxious, otherwise comfortable. EYES: PERRL, no scleral injection or icterus. No vision loss HENT: Normocephalic, atraumatic, hearing grossly intact, moist mucous membranes NECK: No tracheal deviation, full range of motion. CARDIOVASCULAR: S1 and S2 present. No murmurs, rubs, or gallops. PULMONARY: Chest is clear to auscultation, no wheezing, rhonchi, or crackles. ABDOMEN: Soft, nontender, nondistended. No palpable organomegaly. MUSCULOSKELETAL: No apparent joint swelling and deformities. EXTREMITIES: No apparent cyanosis, clubbing. No pedal edema. NEUROLOGICAL: Alert and oriented. Gross neurological examination with no apparent focal deficits. Dr. De Jesus seen patient with resident, present during exam, and agreed with findings. Dictation was produced using [employer] software. please excuse any grammatical, word or spelling errors. Patient Condition at Discharge: Stable Plan - Discharge Summary Discharge Rx Participant: Yes New Discharge Prescriptions: Continue Aspirin 81 mg PO DAILY Propranolol HCl 80 mg PO TID Topiramate [Topamax] 100 mg PO HS Desvenlafaxine Succinate [Pristiq ER] 50 mg PO DAILY Cyanocobalamin [Vitamin B-12 Injection] 1,000 mcg SQ Q30D buPROPion HCL [buPROPion HCL XL] 300 mg PO DAILY Desvenlafaxine Succinate [Pristiq] 25 mg PO DAILY Pantoprazole [Protonix] 40 mg PO DAILY Eszopiclone [Lunesta] 3 mg PO HS PRN PRN Reason: sleep Discharge Medication List Aspirin 81 mg PO DAILY 06/11/15 [History] Propranolol HCl 80 mg PO TID 05/05/17 [History] Topiramate [Topamax] 100 mg PO HS 08/25/17 [History] Desvenlafaxine Succinate [Pristiq ER] 50 mg PO DAILY 10/07/23 [History] Desvenlafaxine Succinate [Pristiq] 25 mg PO DAILY 10/07/23 [History] buPROPion HCL [buPROPion HCL XL] 300 mg PO DAILY 10/07/23 [History] Cyanocobalamin [Vitamin B-12 Injection] 1,000 mcg SQ Q30D 02/14/25 [History] Eszopiclone [Lunesta] 3 mg PO HS PRN 02/14/25 [History] Pantoprazole [Protonix] 40 mg PO DAILY 02/14/25 [History] Follow up Appointment(s)/Referral(s): Kurt Quick MD [Medical Doctor] - 2 Weeks Darrin Torres DO [Primary Care Provider] - 1-2 days Patient Instructions/Handouts: Chest Pain (DC) Activity/Diet/Wound Care/Special Instructions: Follow-up with PCP after discharge, and cardiology in 2 weeks Discharge Disposition: HOME SELF-CARE
[2025-02-15 15:44] LABS: NT-Pro-B-Type Natriuretic Pept 89 pg/mL (0-125)
[2025-02-15 15:46] LABS: Chol/HDL Ratio 1.84 Ratio; LDL Cholesterol,Calculated 59.5 mg/dL (0.0-131.0)
== END 2025-02-15 15:05 | disposition home or self-care (01) ==
LOC: EC 13:17 → 6NMEDSUR 18:33
PROVIDERS: ADMIT Hospitalist; ATTEND Hospitalist
DX: R07.89 Other chest pain (principal); R74.8 Abnormal levels of other serum enzymes; G90.A Postural orthostatic tachycardia syndrome [POTS]; N80.9 Endometriosis, unspecified; K85.90 Acute pancreatitis without necrosis or infection, unspecified; F41.9 Anxiety disorder, unspecified; Z86.73 Personal history of transient ischemic attack (TIA), and cerebral infarction without residual deficits; Z87.891 Personal history of nicotine dependence; Z79.82 Long term (current) use of aspirin; Z79.899 Other long term (current) drug therapy; Z88.2 Allergy status to sulfonamides; Z88.6 Allergy status to analgesic agent; Z82.49 Family history of ischemic heart disease and other diseases of the circulatory system
CPT/HCPCS: 96376 ×2; 96372; 96374; 96375; 99285; 36415; 93005; 93306; 93351; 85379; 83880; 80061; 80053; 83690; 83735; 84484; 85025; 85610; 85730; 83036; 71046; 76705; G0378 ×2; J2270 ×3; J3360; J2405; J1650